=== PATIENT | male | born 1945 | race Caucasian/White ===

== ENCOUNTER 2017-04-03 18:54 | Inpatient (IN) ==
[2017-04-03] MEDS: D5% in 0.9% NACL 1,000 ML IVC SCH (22:10)
--- NOTE | 2017-04-03 22:59 | Internal Med History&Physical ---
<JoleneyulianaCale - Last Filed: 04/03/17 23:53> Date of Encounter: 04/03/17 Time of Encounter: 22:00 Assessment and Plan (1) Bradycardia Current visit: No Status: Acute Patient with Symptomatic Bradycardia. EKG shows Mobitz type II second degree heart block. possibly secondary to Coreg and digoxin, but patient has been on these medications for years and digoxin level was normal Hold Coreg and digoxin continuous certified peer specialist Start Dopamine drip Patient currently stable. Cardiology made aware of patient. Cardiology consult placed. Appreciate recommendations. (2) CAD (coronary artery disease) Current visit: Yes Status: Chronic Patient hx of CAD s/p CABG Pt on home Coreg, Digoxin Hold meds due to symptomatic bradycardia. Qualifiers: Coronary Disease-Associated Artery/Lesion type: unspecified vessel or lesion type [place] vs. transplanted heart: [place] heart Associated angina: with unspecified angina Qualified Code(s): I25.119 - Atherosclerotic heart disease of [place] coronary artery with unspecified angina pectoris (3) Anemia Current visit: Yes Status: Chronic Pt Hgb 9.2 on admission family reports hx of Anemia but no baseline in system. continue to monitor. Qualifiers: Anemia type: unspecified type Qualified Code(s): D64.9 - Anemia, unspecified (4) HTN (hypertension) Current visit: Yes Status: Acute Pt with Hx of HTN on home HCTZ, Enalapril hold home medications in light of symptomatic bradycardia until after cardiac evaluation. Qualifiers: Hypertension type: essential hypertension Qualified Code(s): I10 - Essential (primary) hypertension (5) HLD (hyperlipidemia) Current visit: Yes Status: Chronic Pt with Hx of HLD on home Zocor and fenofibrate resume home meds in the AM after cardio evaluation Qualifiers: Hyperlipidemia type: unspecified Qualified Code(s): E78.5 - Hyperlipidemia , unspecified (6) Diabetes mellitus Current visit: Yes Status: Chronic Patient with Hx of DM on home Glipizide Patient hypoglycemic upon arrival from [place]. hold home glipizide. gave juice and started on D5 NS continue to monitor with scheduled accuchecks. Will start SSI in the morning. Qualifiers: Diabetes mellitus type: type 2 Diabetes mellitus complication status: with unspecified complications Diabetes mellitus terminologist insulin use: without terminologist use Qualified Code(s): E11.8 - Type 2 diabetes mellitus with unspecified complications Internal Medicine - H&P: HPI Chief complaint: Lightheadedness Admitted From: Hospital to Hospital Transfer Plans for Post Hospital Care: Home History of present illness: Mr. Dawson is a 71 year old male c PMHx of [place], CAD s/p CABG, DM, HLD, HTN, Chronic anemia reports to [facility] as a transfer from [place] [facility] for complaints of lightheadedness x 3 days. Patient reports dizziness upon standing/exertion that he describes as lightheadedness. He also reports generalized fatigue/ weakness and [place]. Patient denies V,D, Chest pain, abd pain, SOB, urinary symptoms, numbness tingling, headache, LOC. Patient was recently treated at an outside urgent care for Rosacea. Patient is on Coreg and Digoxin since his Heart attack and CABG almost 20 years ago. He reports 6 months ago medications were slightly changed so that he took the same amount of digoxin and coreg but spread out as BID instead of once a day, but had not had problems until 3 days ago. Sharee went to [place] ED and was placed on certified peer specialist which revealed heart rate in the 30s. EKGs showed Bradycardia with Mobitz type II second degree heart block. Patient got an CXR which showed no active disease and 1 L of fluid. Labs revealed normal WBC, Hgb 9.2, Hct 27.1 Plts 223, Na 138, K 4.5 Cl 104, Bicarb 28, BUN 38, Cr. 1.81, Glucose 187, Trop negative, Digoxin level 1.6. No prior admission in [place] system. No baselines for labs. Patient was transferred to [facility] for further work up. Past Med Surg Social Fam HX - Past Medical History Medical history: arthritis, COPD, coronary artery disease, CVA, diabetes, hyperlipidemia, hypertension, myocardial infarction, renal disease Psychiatric history: anxiety, depression - Past Surgical History Surgical History: coronary bypass (CABG) - Social History Smoking Status: Former smoker Smokeless Tobacco Status: No Alcohol use: none Drug use: none Internal Medicine - H&P: Meds Aspirin [Lo-Dose Aspirin EC] 81 mg PO DAILY 04/03/17 [History] Carvedilol [Coreg] 6.25 mg PO BIDWM 04/03/17 [History] Cetirizine HCl [Zyrtec] 10 mg PO DAILY 04/03/17 [History] Digoxin [Lanoxin] 0.125 mg PO BID 04/03/17 [History] Enalapril Maleate [Vasotec] 20 mg PO DAILY 04/03/17 [History] Fenofibrate,Micronized [Fenofibrate] 160 mg PO DAILY 04/03/17 [History] GlipiZIDE [Glipizide ER] 10 mg PO DAILY 04/03/17 [History] Simvastatin [Zocor] 40 mg PO HS 04/03/17 [History] hydroCHLOROthiazide [Hydrochlorothiazide] 25 mg PO DAILY 04/03/17 [History] 3 Allergy/AdvReac Type Severity Reaction Status Date / Time codeine Allergy See Verified 04/03/17 15:19 Comments All Systems PM: A 14-system review of systems was performed and is negative for pertinent findings except as documented above in the HPI. - Head Head exam: Present: atraumatic, normocephalic - Eye Eye exam: Present: EOMI, PERRL, conjuntiva pink, sclera anicteric Pupils: Present: PERRL - Neck Neck exam general surgery: Present: supple, trachea midline - Respiratory Respiratory exam: Present: CTAB. Absent: accessory muscle use, rales, rhonchi, wheezes - Cardiovascular Cardiovascular exam: Present: bradycardia, irregular rhythm, +S1, +S2. Absent: diastolic murmur, gallop, RRR, rubs, systolic murmur - GI/Abdominal GI/Abdominal exam: Present: normal bowel sounds, soft, no peritoneal signs. Absent: distended, tenderness - Extremities Exam Extremities exam: Present: warm, radial pulses palpable and symmetrical. Absent : calf tenderness, cyanotic, pedal edema - Neurological Exam Neurological exam: Present: alert, CN II-XII intact, oriented X3, no focal deficits. Absent: facial droop, speech deficit - Skin Skin exam: Present: dry, intact <Tommie Pierre - Last Filed: 04/04/17 00:33> Date of Encounter: 04/03/17 Time of Encounter: 22:35 Past Med Surg Social Fam HX - Past Medical History Attestation: Yes The following information was validated with the patient. Source: patient Medical history: coronary artery disease, diabetes - Past Surgical History Surgical History: coronary bypass (CABG) - Social History Smoking Status: Former smoker Smokeless Tobacco Status: No Alcohol use: none Drug use: none Current living situation: Home, With Family Activity Level: Independent ambulation Recent Out of Country Travel Within the Last 8 Weeks: No - Family History Mother Living Status: Hx Family Cardiac Disorders: Yes Father Living Status: Hx Family Cardiac Disorders: No - Constitutional Constitutional: no fever(s) - EENT Eyes: no blurry vision, no change in vision Ears: no tinnitus Nose, mouth and throat: no sinus pressure, no sore throat - Cardiovascular Cardiovascular ROS IM: irregular heart rhythm, lightheadedness, no chest pain, no palpitations, no syncope - Respiratory Respiratory: no cough, no dyspnea, no hemoptysis - Gastrointestinal Gastrointestinal: no abdominal pain, no diarrhea, no vomiting - Genitourinary Genitourinary ROS male: no dysuria, no flank pain, no hematuria - Integumentary Integumentary IM: no rash - Neurological Neurological ROS: dizziness, weakness, no focal weakness, no frequent falls, no headache(s) - Psychiatric Psychiatric: no anxiety, no depression - Endocrine Endocrine IM: no polydipsia, no polyuria - Hematologic/Lymphatic Hematologic/Lymphatic: no easy bruising, no lymphadenopathy - Allergic/Immunologic Allergic/Immunologic: no wheezing, no GI upset with certain foods - Constitutional Vitals: Temp Pulse Resp BP Pulse Ox 98.2 F 45 16 160/44 99 04/03/17 23:42 04/03/17 23:46 04/03/17 23:45 04/03/17 23:46 04/03/17 23:45 General appearance: Present: cooperative, mild distress (lightheaded; dizzy), A& O X 3, pleasant - Head Head exam: Present: atraumatic, normal inspection - Eye Eye exam: Present: EOMI, PERRL. Absent: scleral icterus - ENT ENT exam: Present: mucous membranes dry, normal exam - Neck Neck exam general surgery: Present: full ROM, supple. Absent: lymphadenopathy, tenderness, nuchal rigidity - Expanded Neck Exam Neck exam: Absent: carotid bruit - Respiratory Respiratory exam: Present: CTAB. Absent: rales, rhonchi, wheezes - Cardiovascular Cardiovascular exam: Present: bradycardia, +S1, +S2. Absent: diastolic murmur, JVD, systolic murmur - GI/Abdominal GI/Abdominal exam: Present: soft. Absent: tenderness - Extremities Exam Extremities exam: Present: normal capillary refill, warm, radial pulses palpable and symmetrical. Absent: calf tenderness, cyanotic - Back Exam Back exam: Absent: CVA tenderness (L), CVA tenderness (R) - Neurological Exam Neurological exam: Present: alert, CN II-XII intact, oriented X3, no focal deficits - Psychiatric Psychiatric exam: Present: normal affect, normal mood - Skin Skin exam: Present: dry, warm. Absent: rash Internal Med - H&P Results - EKG Data -: EKG Interpreted by Myself - EKG Data EKG comments: 04/04/17 00:18 Bradycardia in a Mobitz 2 pattern -- every other QRS complex is dropped; HR 30's ; compared to other EKG's from [place] (same) - Diagnostic Studies Chest x-ray Status: image reviewed by me (negative) - Attending Attestation I discussed the patient [place], PMH, ROS, lab data, and exam findings with Dr. Wesley. I then saw and examined patient independently as well. Patient is bradycardic with HR in the 30's. BP is preserved. I reviewed his EKG's from [place] and reviewed another one we obtained upon arrival. He has a Mobitz 2 pattern AV block. I ordered Dopamine drip at 5 mcg to maintain HR ~ 45 or better. I then called Dr. Pebbles Coronado from Cardiology and discussed with her the finding of Mobitz 2. If he becomes unstable, he will need a temporary venous pacemaker. However, for now, we will try Dopamine drip and hold his BB and Digoxin. Cardiology will see in consultation in the morning. He is also hypoglycemic, and I placed him on IVF with dextrose and frequent glucose monitoring. Other than my comments above and noted exam findings, I agree with Dr. Wesley' s assessment and plan.
[2017-04-03] MEDS: Aspirin Enteric Coated 81 MG Tablet PO SCH (23:36)
[2017-04-03] MEDS ORDERED: Metoclopramide 10 MG/2 ML VIAL IVP PRN (23:38)
[2017-04-04] MEDS ORDERED: Naloxone 0.4 MG/ML INJ IVP PRN (00:29)
[2017-04-04 01:18] LABS: Basophils # 0.1 K/mcL (0.0-0.2); Basophils % 0.7 %; Eosinophils # 0.4 K/mcL (0.0-0.6); Eosinophils % 6.5 %; Hematocrit 25.7 % (37.5-50.1); Hemoglobin 8.6 g/dL (12.9-16.9); Immature Granulocytes % 3.4 % (0-4); Lymphocytes % 14.9 %; Mean Corpuscular HGB Conc 33.5 g/dL (31.6-35.5); Mean Corpuscular Hemoglobin 29.9 pg (28.0-33.3); Mean Corpuscular Volume 89.2 fL (83.0-100.0); Mean Platelet Volume 10.2 fL (9.4-12.4); Monocytes # 0.5 K/mcL (0.0-1.3); Monocytes % 6.6 %; Neutrophils # 4.6 K/mcL (1.6-8.9); Platelet Count 208 K/mcL (140-400); Red Blood Count 2.88 M/mcL (4.19-5.50); Red Cell Distribution Width 13.4 % (11.5-14.5); Segmented Neutrophils % 67.9 %
[2017-04-04 01:23] LABS: INR 1.1; Prothrombin Time 11.5 Seconds (9.4-12.1)
[2017-04-04 01:25] LABS: Activated Partial Thrombo Time 38.7 Seconds (26.0-36.0)
[2017-04-04 01:34] LABS: Albumin 3.5 g/dL (3.5-5.7); Albumin/Globulin Ratio 1.3 (1.1-2.2); Bilirubin,Total 0.4 mg/dL (0.3-1.0); Chol/HDL Ratio 6.5 (0-4.9); Globulin 2.8 g/dL (2.4-3.5); Magnesium 2.3 mg/dL (1.6-2.6); Total Protein 6.3 g/dL (6.4-8.9)
[2017-04-04] MEDS: *HR* Heparin 5,000 UNIT/ML VIAL SQ SCH ×2 (05:02→17:30)
[2017-04-04] MEDS: D5% in 0.9% NACL 1,000 ML IVC SCH (07:59)
[2017-04-04] MEDS: Aspirin Enteric Coated 81 MG Tablet PO SCH (08:00)
--- NOTE | 2017-04-04 08:22 | Internal Med Progress Note ---
Date of Encounter: 04/04/17 Time of Encounter: 09:35 - Assessment and plan (1) Bradycardia Current Visit: Yes Status: Acute Assessment and plan: Symptomatic bradycardia with Mobitz type II second-degree heart block. Carvedilol and digoxin have been held. Continue dopamine drip. Cardiology consulted. We will await recommendations. Most likely patient will need pacemaker. Continue to monitor heart rate. High risk for complications. (2) Anemia Current Visit: Yes Status: Chronic Assessment and plan: Chronic anemia. Hemoglobin 8.6. Likely from chronic kidney disease. Will check iron, folic acid and B12 levels. Qualifiers: Anemia type: due to chronic kidney disease Chronic kidney disease stage: stage 3 (moderate) Qualified Code(s): N18.3 - Chronic kidney disease, stage 3 (moderate); D63.1 - Anemia in chronic kidney disease; D63.1 - Anemia in chronic kidney disease (3) CAD (coronary artery disease) Current Visit: Yes Status: Chronic Assessment and plan: Continue aspirin, lisinopril and statin. Qualifiers: Coronary Disease-Associated Artery/Lesion type: unspecified vessel or lesion type [place] vs. transplanted heart: [place] heart Associated angina: with unspecified angina Qualified Code(s): I25.119 - Atherosclerotic heart disease of [place] coronary artery with unspecified angina pectoris (4) Diabetes mellitus Current Visit: Yes Status: Chronic Assessment and plan: Hypoglycemia has now resolved. We will transition off D5 infusion. Continue to monitor blood sugars closely. Qualifiers: Diabetes mellitus type: type 2 Diabetes mellitus complication status: with unspecified complications Diabetes mellitus senior living insulin use: without senior living use Qualified Code(s): E11.8 - Type 2 diabetes mellitus with unspecified complications (5) HLD (hyperlipidemia) Current Visit: Yes Status: Chronic Assessment and plan: Continue simvastatin Qualifiers: Hyperlipidemia type: mixed hyperlipidemia Qualified Code(s): E78.2 - Mixed hyperlipidemia (6) HTN (hypertension) Current Visit: Yes Status: Chronic Assessment and plan: Uncontrolled. Resume antihypertensive agents. Continue to hold beta jackie. Qualifiers: Hypertension type: essential hypertension Qualified Code(s): I10 - Essential (primary) hypertension (7) DVT prophylaxis Current Visit: Yes Status: Acute Assessment and plan: With subcutaneous heparin - Subjective Interval history: Patient is awake and alert. Denies any chest pain. No shortness of breath. No dizziness or lightheadedness. Does feel fatigued and weak overall. Heart rate in the 40s despite 5 g of dopamine. Just now increased to 7.5 g. - Constitutional Vitals: Temp Pulse Resp BP Pulse Ox 98.6 F 40 16 157/76 97 04/04/17 07:07 04/04/17 08:10 04/04/17 07:07 04/04/17 08:10 04/04/17 08:10 General appearance: Present: cooperative, mild distress (lightheaded; dizzy), A& O X 3, pleasant, answers questions appropriately - Neck Neck exam general surgery: Present: supple, trachea midline. Absent: lymphadenopathy - Cardiovascular Cardiovascular exam: Present: bradycardia, irregular rhythm, +S1, +S2. Absent: diastolic murmur, gallop, rubs, systolic murmur - GI/Abdominal GI/Abdominal exam: Present: normal bowel sounds, soft, no peritoneal signs. Absent: distended, tenderness - Extremities Exam Extremities exam: Present: warm, radial pulses palpable and symmetrical. Absent : calf tenderness, cyanotic, pedal edema - Neurological Exam Neurological exam: Present: CN II-XII intact, oriented X3, no focal deficits. Absent: facial droop, speech deficit - Skin Skin exam: Present: dry, intact Internal Medicine: Result - Labs CBC & Chem 7: 04/04/17 01:10 04/04/17 01:10 Labs: Short CBC 04/04/17 Range/Units 01:10 WBC 6.8 (4.3-11.1) K/mcL Hgb 8.6 L (12.9-16.9) g/dL Hct 25.7 L (37.5-50.1) % Plt Count 208 (140-400) K/mcL Neutrophils # 4.6 (1.6-8.9) K/mcL BMP 04/04/17 01:10 Sodium 138 Potassium 4.0 Chloride 109 H Carbon Dioxide 25 BUN 36 H Creatinine 1.46 H Glucose 104 Calcium 9.0 Cardiac Enzymes 04/04/17 04/04/17 Range/Units 01:10 07:29 Troponin I 0.03 0.03 (< 0.04) ng/mL Liver Function 04/04/17 Range/Units 01:10 Total Bilirubin 0.4 (0.3-1.0) mg/dL AST 18 (13-39) Units/L ALT 10 (7-52) Units/L Alkaline Phosphatase 32 L (34-104) Units/L Albumin 3.5 (3.5-5.7) g/dL - ABG Interpretation ABG results: PT/INR, D-dimer PT 11.5 Seconds (9.4-12.1) 04/04/17 01:10 Consult Discharge Plan - Plan Referrals: Kade Moya MD [Primary Care Provider] -
[2017-04-04] MEDS: hydroCHLOROthiazide 25 MG TABLET PO SCH (09:30)
[2017-04-04] MEDS: Lisinopril 20 MG TABLET PO SCH (09:30)
--- NOTE | 2017-04-04 14:03 | Cardiology Consult Note ---
Date of Encounter: 04/04/17 Time of Encounter: 09:45 Assessment and Plan (1) Symptomatic bradycardia Current Visit: Yes Status: Acute Pt has symptomatic bradycardia with evidence of 2:1 AV block on EKG. Will most likely need permanent pacemaker on Thursday. Will schedule for echocardiogram to assess LV function. D/C AV aleksandr blocking agents- digoxin, carvedilol. (2) AV block, 2nd degree Current Visit: Yes Status: Acute 2:1 AV block on EKG. (3) CAD (coronary artery disease) Current Visit: No Status: Chronic Pt denies angina. Continue current meds. Risk factor modification. Qualifiers: Coronary Disease-Associated Artery/Lesion type: [place] artery [place] vs. transplanted heart: [place] heart Associated angina: without angina Qualified Code(s): I25.10 - Atherosclerotic heart disease of [place] coronary artery without angina pectoris (4) S/P CABG (coronary artery bypass graft) Current Visit: No Status: Chronic (5) Vision changes Current Visit: Yes Status: Acute Will schedule for carotid duplex to evaluate recent vision changes. None currently. Discussion w patient/family: The assessment and plan as outlined above was discussed with the patient and/or family members who expressed understanding and agreement. All questions were answered. Thank you for involving us in the care of your patient. Please call with any questions. History of Present Illness Consult date: 04/04/17 Consult reason: bradycardia Chief complaint: bradycardia, lightheadedness History of present illness: Mr. Dawson is a 71 year old male with hx of CAD s/p CABG 1998, HTN, hyperlipidemia presents as transfer from [place] ED for evaluation of bradycardia. Pt was in baseline state of health until a few days ago, when started noticing lightheadedness. Powell lightheaded all of time when in upright position both at rest as well as when exerting self. Denies palpitations, syncope. Denies CP, SOB, nausea, vomiting, diaphoresis. Notes fatigue. No recent med changes. Presented to [place] ED for further evaluation. HR noted to be in 30s. EKG demonstrates 2:1 AV block. Digoxin level 1.6, K 4.5. Transferred to [facility] for further evaluation/tx. Currently denies lightheadedness while lying supine in bed. Denies CP, SOB, nausea, diaphoresis. notes pt had vision changes last week- vision went "black" for a few minutes and then resolved. No other associated symptoms. Pt has known history of CAD, PCI, CABG. Has had multiple MIs and PCIs per pt. Had CABG in 1998 at [facility] by Dr. Eisenberg. No cardiac testing since that time. No records available for my review. Pt unaware of EF. Past Med Surg Social Fam HX - Past Medical History Medical history: coronary artery disease, diabetes, hyperlipidemia, hypertension , other (chronic anemia, renal insufficiency) Psychiatric history: anxiety, depression - Past Surgical History Surgical History: angioplasty/stent, coronary bypass (CABG) (1998) - Social History Smoking Status: Former smoker Smokeless Tobacco Status: No Alcohol use: none Drug use: none - Family History Mother Living Status: Hx Family Cardiac Disorders: Yes Father Living Status: Hx Family Cardiac Disorders: No Medications and Allergies Aspirin [Lo-Dose Aspirin EC] 81 mg PO DAILY 04/03/17 [History] Carvedilol [Coreg] 6.25 mg PO BIDWM 04/03/17 [History] Cetirizine HCl [Zyrtec] 10 mg PO DAILY 04/03/17 [History] Digoxin [Lanoxin] 0.125 mg PO BID 04/03/17 [History] Enalapril Maleate [Vasotec] 20 mg PO DAILY 04/03/17 [History] Fenofibrate,Micronized [Fenofibrate] 160 mg PO DAILY 04/03/17 [History] GlipiZIDE [Glipizide ER] 10 mg PO DAILY 04/03/17 [History] Simvastatin [Zocor] 40 mg PO HS 04/03/17 [History] hydroCHLOROthiazide [Hydrochlorothiazide] 25 mg PO DAILY 04/03/17 [History] 3 Allergy/AdvReac Type Severity Reaction Status Date / Time codeine Allergy See Verified 04/03/17 15:19 Comments All Systems Review: The remainder of the systems were reviewed and are negative - Cardiovascular Cardiovascular: as per HPI Physical Examination Vital Signs, Last 4 Hours Temp Pulse Resp BP Pulse Ox 04/04/17 13:46 55 127/45 04/04/17 13:26 60 04/04/17 13:05 49 145/107 97 04/04/17 12:10 60 04/04/17 12:05 60 162/63 04/04/17 12:04 98.5 F 55 17 162/63 98 02/24/18 11:45 88 135/66 04/04/17 11:15 54 160/59 04/04/17 10:45 50 162/52 04/04/17 10:30 47 164/53 04/04/17 10:21 52 174/67 04/04/17 10:00 52 170/76 General: Conversant, No Apparent Distress HEENT: Atraumatic, Normocephaly, Mucus Membranes Moist Neck: No JVD, Normal carotid pulses Cardiac: Normal S1 and S2, No Murmur (bradycardic, irregular rhythm) Lungs: Normal Breath Sounds, No Wheeze, Rales, Rhonchi Neuro: Alert and responsive, No focal deficits noted Abdomen: Soft, Non-Tender Skin: No rashes noted on visualized skin Musculoskeletal: No Chest Wall Tenderness Extremities: No Clubbing, No Cyanosis, No Edema, Normal Pulses Results 04/04/17 01:10 04/04/17 01:10 Lab Results 04/04/17 04/04/17 04/04/17 01:10 01:10 01:10 WBC 6.8 Hgb 8.6 L Hct 25.7 L Plt Count 208 INR 1.1 APTT 38.7 H Sodium Potassium Chloride Carbon Dioxide BUN Creatinine Glucose Calcium Magnesium Total Bilirubin AST ALT Alkaline Phosphatase Troponin I 0.03 04/04/17 04/04/17 01:10 07:29 WBC Hgb Hct Plt Count INR APTT Sodium 138 Potassium 4.0 Chloride 109 H Carbon Dioxide 25 BUN 36 H Creatinine 1.46 H Glucose 104 Calcium 9.0 Magnesium 2.3 Total Bilirubin 0.4 AST 18 ALT 10 Alkaline Phosphatase 32 L Troponin I 0.03 - EKG Interpretation EKG results cardiology: personally reviewed (2:1 AV block) Consult Discharge Plan - Plan Referrals: Kade Moya MD [Primary Care Provider] -
[2017-04-05] MEDS ORDERED: Ipratropium/Albuterol Neb 3 ML IH PRN (03:12)
[2017-04-05] MEDS: Ipratropium/Albuterol Neb 3 ML IH SCH ×4 (04:32→21:43)
[2017-04-05] MEDS: *HR* Heparin 5,000 UNIT/ML VIAL SQ SCH ×2 (06:34→16:56)
[2017-04-05] MEDS: hydroCHLOROthiazide 25 MG TABLET PO SCH (07:15)
[2017-04-05] MEDS: Aspirin Enteric Coated 81 MG Tablet PO SCH (07:16)
[2017-04-05] MEDS: Lisinopril 20 MG TABLET PO SCH (07:16)
[2017-04-05] MEDS ORDERED: CeFAZolin Syr 2,000MG/20 ML 2,000 MG/20 ML SYRINGE IVPB ONE (08:38)
--- NOTE | 2017-04-05 09:10 | Cardiology Progress Note ---
Date of Encounter: 04/05/17 Time of Encounter: 08:30 Assessment and Plan (1) Symptomatic bradycardia Current Visit: Yes Status: Acute Pt has symptomatic bradycardia with evidence of 2:1 AV block on EKG. Permanent pacemaker on Thursday. EF 55% on echocardiogram. (2) AV block, 2nd degree Current Visit: Yes Status: Acute 2:1 AV block on EKG. (3) CAD (coronary artery disease) Current Visit: No Status: Chronic Pt denies angina. Continue current meds. Risk factor modification. Qualifiers: Coronary Disease-Associated Artery/Lesion type: [place] artery [place] vs. transplanted heart: [place] heart Associated angina: without angina Qualified Code(s): I25.10 - Atherosclerotic heart disease of [place] coronary artery without angina pectoris (4) S/P CABG (coronary artery bypass graft) Current Visit: No Status: Chronic (5) Vision changes Current Visit: Yes Status: Acute Will schedule for carotid duplex to evaluate recent vision changes. May all be due to bradycardia. None currently. Discussion w patient/family: The assessment and plan as outlined above was discussed with the patient and/or family members who expressed understanding and agreement. All questions were answered. Thank you for involving us in the care of your patient. Please call with any questions. Subjective Interval history: Pt without complaints this AM. Sitting upright in bed- no lightheadedness. Has been out of bed to use bedside commode with nursing assistance. Still having periods of bradycardia with HR in 20s off all AV aleksandr blocking drugs. Objective Vital Signs, Last 4 Hours Temp Pulse Resp BP Pulse Ox 04/05/17 07:20 66 04/05/17 07:08 98.3 F 38 18 152/53 100 General: Conversant, No Apparent Distress HEENT: Atraumatic, Normocephaly, Mucus Membranes Moist Neck: No JVD, Normal carotid pulses Cardiac: Normal S1 and S2, No Murmur, Other (bradycardic) Lungs: Normal Breath Sounds, No Wheeze, Rales, Rhonchi Neuro: Alert and responsive, No focal deficits noted Abdomen: Soft, Non-Tender Skin: No rashes noted on visualized skin Musculoskeletal: No Chest Wall Tenderness Extremities: No Clubbing, No Cyanosis, No Edema, Normal Pulses Results 04/04/17 01:10 04/04/17 01:10 Lab Results 04/04/17 13:39 Troponin I 0.03 - Imaging and Cardiology Echo: other (Periods of AV block observed during the study, sinus rhythm also observed. LVEF 50-55%. Atypical septal motion consistent with post-operative status. Normal right ventricular structure and function. Mild mitral regurgitation. Lack of significant TR gradient to estimate RVSP.) Consult Discharge Plan - Plan Referrals: Kade Moya MD [Primary Care Provider] -
--- NOTE | 2017-04-05 09:33 | Internal Med Progress Note ---
Date of Encounter: 04/05/17 Time of Encounter: 09:29 - Assessment and plan (1) AV block, 2nd degree Current Visit: Yes Status: Acute Assessment and plan: Heart rate has improved. Cardiology following. Recommends permanent pacemaker. Plan for tomorrow. Keep nothing by mouth after midnight. Continue monitoring with telemetry. Dopamine drip stopped yesterday by cardiology. moderate risk for complications. (2) Anemia Current Visit: Yes Status: Chronic Assessment and plan: Monitor blood counts. Chronic anemia. Checking iron profile, vitamin B12 and folic acid levels. Qualifiers: Anemia type: due to chronic kidney disease Chronic kidney disease stage: stage 3 (moderate) Qualified Code(s): N18.3 - Chronic kidney disease, stage 3 (moderate); D63.1 - Anemia in chronic kidney disease; D63.1 - Anemia in chronic kidney disease (3) CAD (coronary artery disease) Current Visit: Yes Status: Chronic Assessment and plan: Continue aspirin, statin and lisinopril. Beta jackie on hold due to bradycardia and AV block Qualifiers: Coronary Disease-Associated Artery/Lesion type: [place] artery [place] vs. transplanted heart: [place] heart Associated angina: without angina Qualified Code(s): I25.10 - Atherosclerotic heart disease of [place] coronary artery without angina pectoris (4) Diabetes mellitus Current Visit: Yes Status: Chronic Assessment and plan: Blood sugars are now improved. Continue to monitor blood sugars. We will start low dose insulin sliding scale if is persistently elevated. Qualifiers: Diabetes mellitus type: type 2 Diabetes mellitus complication status: with unspecified complications Diabetes mellitus custodial insulin use: without custodial use Qualified Code(s): E11.8 - Type 2 diabetes mellitus with unspecified complications (5) HLD (hyperlipidemia) Current Visit: Yes Status: Chronic Assessment and plan: Continue simvastatin Qualifiers: Hyperlipidemia type: mixed hyperlipidemia Qualified Code(s): E78.2 - Mixed hyperlipidemia (6) HTN (hypertension) Current Visit: Yes Status: Chronic Assessment and plan: Elevated this morning. We will monitor for now. Adjust antihypertensive regimen tomorrow after pacemaker placement. Qualifiers: Hypertension type: essential hypertension Qualified Code(s): I10 - Essential (primary) hypertension (7) DVT prophylaxis Current Visit: Yes Status: Acute Assessment and plan: With subcutaneous heparin (8) Mobitz (type) II atrioventricular block Current Visit: Yes Status: Acute Assessment and plan: Management as above - Subjective Interval history: Patient is doing better today. Denies any dizziness or lightheadedness. No nausea or vomiting. No chest pain or palpitations. - Constitutional Vitals: Temp Pulse Resp BP Pulse Ox 98.3 F 66 18 152/53 100 04/05/17 07:08 04/05/17 07:20 04/05/17 07:08 04/05/17 07:08 04/05/17 07:08 General appearance: Present: cooperative, A&O X 3, pleasant, no acute distress, answers questions appropriately - Neck Neck exam general surgery: Present: supple, trachea midline. Absent: lymphadenopathy - Respiratory Respiratory exam: Present: CTAB. Absent: accessory muscle use, rales, rhonchi, wheezes - Cardiovascular Cardiovascular exam: Present: RRR, +S1, +S2. Absent: diastolic murmur, gallop, rubs, systolic murmur - GI/Abdominal GI/Abdominal exam: Present: normal bowel sounds, soft, no peritoneal signs. Absent: distended, tenderness - Extremities Exam Extremities exam: Present: warm, radial pulses palpable and symmetrical. Absent : calf tenderness, cyanotic, pedal edema Internal Medicine: Result - Labs CBC & Chem 7: 04/04/17 01:10 04/04/17 01:10 Labs: Cardiac Enzymes 04/04/17 Range/Units 13:39 Troponin I 0.03 (< 0.04) ng/mL - ABG Interpretation ABG results: PT/INR, D-dimer PT 11.5 Seconds (9.4-12.1) 04/04/17 01:10 - Impressions Impressions Echocardiogram 04/04/17 00:28 Impressions: Periods of AV block observed during the study, sinus rhythm also observed. LVEF 50-55%. Atypical septal motion consistent with post-operative status. Normal right ventricular structure and function. Mild mitral regurgitation. Lack of significant TR gradient to estimate RVSP. Left Ventricular Wall Motion: Rest Echo Findings The apical inferior, mid inferior and basal inferior miranda were not visualized. All other wall segments showed normal motion. Findings: Study Quality * Technically adequate exam. ECG Findings * Periods of AVB observed during the study, sinus rhythm also observed. Left Ventricle * LVEF 50-55%. * Atypical septal motion consistent with post-operative status. * Normal LV chamber size and wall thickness. Right Ventricle * Normal right ventricular structure and function. Left Atrium * Moderately dilated left atrium. Right Atrium * Normal right atrial size. Aortic Valve * No aortic regurgitation. * Trileaflet aortic valve. * Mildly thickened aortic valve leaflets. * No aortic stenosis. Mitral Valve * Normal mitral valve structure. * No mitral stenosis. * Mild mitral regurgitation. Tricuspid Valve * Tricuspid valve not well visualized. * Trace tricuspid regurgitation. * Estimated RA pressure is 3 mmHg. Pulmonic Valve * Pulmonic valve is not well visualized. * No pulmonic stenosis. * No pulmonic regurgitation. Pulmonary Artery * Pulmonary artery not well visualized. Aorta * Normally sized aortic root. Pericardium * There is no pericardial effusion present. Interatrial Septum * No evidence of PFO by color Doppler. IVC * Normal IVC dimensions and inspiratory collapse. Consult Discharge Plan - Plan Referrals: Kade Moya MD [Primary Care Provider] -
[2017-04-05 10:01] LABS: Basophils # 0.1 K/mcL (0.0-0.2); Basophils % 0.8 %; Eosinophils # 0.3 K/mcL (0.0-0.6); Eosinophils % 5.2 %; Hemoglobin 9.2 g/dL (12.9-16.9); Immature Granulocytes % 2.7 % (0-4); Lymphocytes # 0.9 K/mcL (0.6-4.6); Lymphocytes % 13.9 %; Mean Corpuscular HGB Conc 34.1 g/dL (31.6-35.5); Mean Corpuscular Hemoglobin 30.3 pg (28.0-33.3); Mean Corpuscular Volume 88.8 fL (83.0-100.0); Mean Platelet Volume 10.3 fL (9.4-12.4); Monocytes # 0.4 K/mcL (0.0-1.3); Monocytes % 6.5 %; Neutrophils # 4.4 K/mcL (1.6-8.9); Platelet Count 193 K/mcL (140-400); Red Blood Count 3.04 M/mcL (4.19-5.50); Red Cell Distribution Width 13.8 % (11.5-14.5); Segmented Neutrophils % 70.9 %
[2017-04-05 10:18] LABS: % Iron Saturation 20 % (20-55); Ferritin 323 ng/ml (20-250); Iron 66 mcg/dL (65-175); Transferrin 241 mg/dL (203-362)
[2017-04-05 10:44] LABS: Vitamin B12 199 pg/mL (250-1100)
[2017-04-05 10:52] LABS: Folate > 22.3 ng/mL (3.0-16.0)
[2017-04-05] MEDS: Acetaminophen 325 MG TABLET PO PRN (14:05)
[2017-04-05] MEDS: Cyanocobalamin (B-12) 1,000 MCG/ML VIAL SQ SCH (16:56)
[2017-04-06] MEDS: Ipratropium/Albuterol Neb 3 ML IH SCH ×4 (04:10→21:02)
[2017-04-06] MEDS: *HR* Heparin 5,000 UNIT/ML VIAL SQ SCH ×2 (06:06→17:04)
[2017-04-06 07:54] LABS: Basophils % 0.6 %; Eosinophils # 0.3 K/mcL (0.0-0.6); Hematocrit 25.5 % (37.5-50.1); Hemoglobin 8.6 g/dL (12.9-16.9); Lymphocytes # 0.8 K/mcL (0.6-4.6); Lymphocytes % 12.3 %; Mean Corpuscular HGB Conc 33.7 g/dL (31.6-35.5); Mean Corpuscular Volume 88.9 fL (83.0-100.0); Mean Platelet Volume 10.4 fL (9.4-12.4); Monocytes # 0.4 K/mcL (0.0-1.3); Monocytes % 6.5 %; Neutrophils # 4.9 K/mcL (1.6-8.9); Platelet Count 191 K/mcL (140-400); Red Blood Count 2.87 M/mcL (4.19-5.50); Red Cell Distribution Width 13.9 % (11.5-14.5); Segmented Neutrophils % 73.6 %
[2017-04-06 08:33] LABS: Calcium 9.6 mg/dL (8.6-10.3); Potassium 3.6 mEq/L (3.5-5.1)
[2017-04-06] MEDS: Aspirin Enteric Coated 81 MG Tablet PO SCH (08:47)
[2017-04-06] MEDS: hydroCHLOROthiazide 25 MG TABLET PO SCH (08:47)
[2017-04-06] MEDS: Cyanocobalamin (B-12) 1,000 MCG/ML VIAL SQ SCH (08:47)
[2017-04-06] MEDS: Lisinopril 20 MG TABLET PO SCH (08:47)
--- NOTE | 2017-04-06 11:32 | Event Note ---
Date of Encounter: 04/06/17 Time of Encounter: 11:30 - Cardiology Event Note ECGs and telemetry strips reviewed with Dr.JOhn Coronado, plan for permanent pacemaker today for symptomatic bradycardia with 2:1 AV block. Risks versus benefits of pacemaker explained to patient and family, states understanding and agreeable to proceed. Further recommendations pending pacemaker.
--- NOTE | 2017-04-06 12:23 | Internal Med Progress Note ---
Date of Encounter: 04/06/17 Time of Encounter: 09:00 - Assessment and plan (1) AV block, 2nd degree Current Visit: Yes Status: Acute Assessment and plan: Plan for Permanent pacemaker today. Cardiology following. (2) Anemia Current Visit: Yes Status: Chronic Assessment and plan: With vitamin B12 deficiency. Replacing. Qualifiers: Anemia type: due to chronic kidney disease Chronic kidney disease stage: stage 3 (moderate) Qualified Code(s): N18.3 - Chronic kidney disease, stage 3 (moderate); D63.1 - Anemia in chronic kidney disease; D63.1 - Anemia in chronic kidney disease (3) CAD (coronary artery disease) Current Visit: Yes Status: Chronic Assessment and plan: No chest pain. Continue current medications Qualifiers: Coronary Disease-Associated Artery/Lesion type: [place] artery [place] vs. transplanted heart: [place] heart Associated angina: without angina Qualified Code(s): I25.10 - Atherosclerotic heart disease of [place] coronary artery without angina pectoris (4) Diabetes mellitus Current Visit: Yes Status: Chronic Assessment and plan: Hypoglycemia resolved. Blood sugars are well controlled Qualifiers: Diabetes mellitus type: type 2 Diabetes mellitus complication status: with unspecified complications Diabetes mellitus ferry terminal agent insulin use: without ferry terminal agent use Qualified Code(s): E11.8 - Type 2 diabetes mellitus with unspecified complications (5) HLD (hyperlipidemia) Current Visit: Yes Status: Chronic Assessment and plan: On simvastatin Qualifiers: Hyperlipidemia type: mixed hyperlipidemia Qualified Code(s): E78.2 - Mixed hyperlipidemia (6) HTN (hypertension) Current Visit: Yes Status: Chronic Assessment and plan: Continue lisinopril and hydrochlorothiazide. Holding beta jackie due to bradycardia. Qualifiers: Hypertension type: essential hypertension Qualified Code(s): I10 - Essential (primary) hypertension (7) Mobitz (type) II atrioventricular block Current Visit: Yes Status: Acute (8) DVT prophylaxis Current Visit: Yes Status: Acute Assessment and plan: Subcutaneous heparin - Subjective Interval history: Patient is comfortable. Awake and alert. No palpitations. No dizziness or lightheadedness. - Constitutional Vitals: Temp Pulse Resp BP Pulse Ox 98.6 F 72 16 144/82 100 04/06/17 11:36 04/06/17 11:36 04/06/17 11:36 04/06/17 11:36 04/06/17 11:36 General appearance: Present: cooperative, A&O X 3, pleasant, no acute distress, answers questions appropriately - Respiratory Respiratory exam: Present: CTAB. Absent: accessory muscle use, rales, rhonchi, wheezes - Cardiovascular Cardiovascular exam: Present: bradycardia, RRR, +S1, +S2. Absent: diastolic murmur, gallop, rubs, systolic murmur - GI/Abdominal GI/Abdominal exam: Present: normal bowel sounds, soft, no peritoneal signs. Absent: distended, tenderness - Extremities Exam Extremities exam: Present: warm, radial pulses palpable and symmetrical. Absent : calf tenderness, cyanotic, pedal edema - Neurological Exam Neurological exam: Present: CN II-XII intact, oriented X3, no focal deficits. Absent: facial droop, speech deficit - Skin Skin exam: Present: dry, intact Internal Medicine: Result - Labs CBC & Chem 7: 04/06/17 07:21 04/06/17 07:21 Labs: Short CBC 04/06/17 Range/Units 07:21 WBC 6.6 (4.3-11.1) K/mcL Hgb 8.6 L (12.9-16.9) g/dL Hct 25.5 L (37.5-50.1) % Plt Count 191 (140-400) K/mcL Neutrophils # 4.9 (1.6-8.9) K/mcL BMP 04/06/17 07:21 Sodium 139 Potassium 3.6 Chloride 108 H Carbon Dioxide 25 BUN 30 H Creatinine 1.44 H Glucose 109 H Calcium 9.6 - ABG Interpretation ABG results: PT/INR, D-dimer PT 11.5 Seconds (9.4-12.1) 04/04/17 01:10 Consult Discharge Plan - Plan Referrals: Kade Moya MD [Primary Care Provider] -
--- NOTE | 2017-04-06 12:23 | Pre-Sedation Evaluation ---
Pre-sedation evaluation - Pre-sedation checklist Date of procedure: 04/06/17 Procedure: Pacemaker Recent Vitals: Last Vital Signs Temp 98.6 F 04/06/17 11:36 Pulse 72 04/06/17 11:36 Resp 16 04/06/17 11:36 BP 144/82 04/06/17 11:36 Pulse Ox 100 04/06/17 11:36 H&P (including ROS) documented in medical record: No Previous reaction to sedatives/anesthetics: No Dietary Status: NPO after Midnight Airway Assessment: Patient can open mouth completely, TMJ function normal, Micrognathia (under-bite, receding chin) absent Possible difficult airway: No ASA Classification *see protocol: CLASS II-Mild systemic disease Plan of Care: Pt appropriate candidate for procedure/moderate/conscious sedation , Risks/benefits of procedure/sedation discussed w/ patient/family
[2017-04-06] MEDS ORDERED: Water for inj. (sterile) 10 ML IV ONE (12:53)
[2017-04-06] MEDS ORDERED: 0.9 % Sodium Chloride 500 ML ONE (12:53)
[2017-04-06] MEDS ORDERED: *HR* FentaNYL (PF) 100 MCG/2 ML VIAL ONE (12:55)
[2017-04-06] MEDS ORDERED: *HR* Midazolam HCl 2 MG/2 ML VIAL ONE (12:55)
[2017-04-06] MEDS ORDERED: 0.9 % Sodium Chloride 1,000 ML ONE (12:56)
[2017-04-06] MEDS: Acetaminophen 325 MG TABLET PO PRN (17:05)
[2017-04-07] MEDS: Acetaminophen 325 MG TABLET PO PRN ×2 (03:21→09:17)
[2017-04-07] MEDS: Ipratropium/Albuterol Neb 3 ML IH SCH ×2 (04:13→09:35)
[2017-04-07 04:37] LABS: BUN/Creatinine Ratio 18 (6-26); Blood Urea Nitrogen 23 mg/dL (8-23); Carbon Dioxide 24 mEq/L (23-29); Chloride 110 mEq/L (98-107); Potassium 3.9 mEq/L (3.5-5.1); Sodium 140 mEq/L (136-145); eGFR For African Americans > 60 (> 60); eGFR For Non-African Americans 56 (> 60)
[2017-04-07] MEDS: *HR* Heparin 5,000 UNIT/ML VIAL SQ SCH (06:18)
[2017-04-07] MEDS: hydroCHLOROthiazide 25 MG TABLET PO SCH (09:10)
[2017-04-07] MEDS: Cyanocobalamin (B-12) 1,000 MCG/ML VIAL SQ SCH (09:10)
[2017-04-07] MEDS: Aspirin Enteric Coated 81 MG Tablet PO SCH (09:10)
[2017-04-07] MEDS: Lisinopril 20 MG TABLET PO SCH (09:10)
--- NOTE | 2017-04-07 11:10 | Cardiology Progress Note ---
Date of Encounter: 04/07/17 Time of Encounter: 09:30 Assessment and Plan (1) Symptomatic bradycardia Current Visit: Yes Status: Acute Per cardiology: -Symptomatic bradycardia noted on admission. -S/p permanent pacemaker yesterday. -Chest x-ray with no evidence of pneumothorax. -Device check today with normal functioning device. -Post device implantation education reviewed with patient and , state understanding. -Denies symptoms since device placement. -Cardiology will sign off and will follow in outpateitn setting. Follow up set. (2) Vision changes Current Visit: Yes Status: Acute Per cardiology: -Denies visio changes since device placement. -Carotid duplex with bilateral carotid arteries with 40-59% stenosis. -Will continue to monitor in outpatient setting. (3) CAD (coronary artery disease) Current Visit: Yes Status: Chronic Per cardiology: -Known history of CAD s/p CABG. -Denies chest pain. -On asa, statin, -TTE with LVEF preserved. -Will resume low dose beta jackie. -Will continue to monitor in outpatient setting. Qualifiers: Coronary Disease-Associated Artery/Lesion type: [place] artery [place] vs. transplanted heart: [place] heart Associated angina: without angina Qualified Code(s): I25.10 - Atherosclerotic heart disease of [place] coronary artery without angina pectoris Discussion w patient/family: The assessment and plan as outlined above was discussed with the patient and/or family members who expressed understanding and agreement. All questions were answered. Thank you for involving us in the care of your patient. Please call with any questions. Discussed and reviewed with Dr.John Coronado. Subjective Principal diagnosis: bradycardia Interval history: Patient is s/p permanent pacemaker yesterday. Denies complaints. Objective Vital Signs, Last 4 Hours Temp Pulse Resp BP Pulse Ox 04/07/17 09:23 66 04/07/17 07:47 98.7 F 64 16 135/55 97 General: Conversant, No Apparent Distress HEENT: Atraumatic, Normocephaly, Mucus Membranes Moist Neck: No JVD, Normal carotid pulses Cardiac: Reg Rate and Rhythm, Normal S1 and S2, No Murmur Lungs: Normal Breath Sounds, No Wheeze, Rales, Rhonchi Neuro: Alert and responsive, No focal deficits noted Abdomen: Soft, Non-Tender Skin: No rashes noted on visualized skin Musculoskeletal: No Chest Wall Tenderness Extremities: No Clubbing, No Cyanosis, No Edema, Normal Pulses Results 04/06/17 07:21 04/07/17 03:45 Lab Results Impressions Chest X-Ray 04/06/17 13:49 IMPRESSION: No acute process. Transvenous pacer in place. No pneumothorax. D/ / Bethel Bingham MD / Bethel Bingham MD Interpreting Provider: Bethel Bingham MD Chest X-Ray 04/07/17 06:00 IMPRESSION: No acute abnormality. D/ / Deon Dougherty MD / Deon Dougherty MD Interpreting Provider: Deon Dougherty MD Active Medications Acetaminophen (Tylenol) 650 mg PO Q6HR PRN PRN Reason: Pain Stop: 10/05/17 14:02 Last Admin: 04/07/17 09:17 Dose: 650 mg Albuterol/Ipratropium (Duoneb) 3 ml IH [id number] [facility] Stop: 10/05/17 04:01 Last Admin: 04/07/17 09:35 Dose: 3 ml Albuterol/Ipratropium (Duoneb) 3 ml IH [id number] PRN PRN Reason: Shortness Of Breath/Wheezing Stop: 10/05/17 03:13 Last Admin: 04/05/17 13:26 Dose: 3 ml Aspirin (Aspirin Ec) 81 mg PO DAILY [facility] Stop: 10/03/17 23:16 Last Admin: 04/07/17 09:10 Dose: 81 mg Cyanocobalamin (Vitamin B12) 1,000 mcg SQ DAILY [facility] Stop: 10/05/17 16:01 Last Admin: 04/07/17 09:10 Dose: 1,000 mcg Heparin Sodium (Porcine) (Heparin) 5,000 unit SQ Q12HCO [facility] Stop: 10/04/17 06:01 Last Admin: 04/07/17 06:18 Dose: 5,000 unit Hydrochlorothiazide (Hydrochlorothiazide) 25 mg PO DAILY [facility] PRN Reason: Protocol Stop: 10/04/17 09:01 Last Admin: 04/07/17 09:10 Dose: 25 mg Lisinopril (Zestril) 20 mg PO DAILY [facility] Stop: 10/04/17 09:01 Last Admin: 04/07/17 09:10 Dose: 20 mg Metoclopramide HCl (Reglan) 10 mg IVP Q6HR PRN PRN Reason: Nausea And Vomiting Stop: 10/03/17 23:39 Last Admin: 04/03/17 23:48 Dose: 10 mg Naloxone HCl (Narcan) 0.4 mg IVP Q2MIN PRN PRN Reason: SEE COMMENTS Stop: 10/04/17 00:30 Simvastatin (Zocor) 40 mg PO HS [facility] PRN Reason: Protocol Stop: 10/04/17 21:01 Last Admin: 04/06/17 20:26 Dose: 40 mg Laboratory Tests 04/06/17 04/07/17 07:21 03:45 Hgb 8.6 L Creatinine 1.27 - Imaging and Cardiology Chest Xray: report reviewed Echo: report reviewed - EKG Interpretation EKG results cardiology: other (Telemetry reviewed with average HR previous 12 hours noted to be 66, paced rythm. PVCS and PACs noted.) Consult Discharge Plan - Plan Instructions: Heart Failure (DC), Pacemaker (DC), Bradycardia (DC) Referrals: one week,wound check [Other] (Office will call your with your appointment) three to four week, device check [Other] (Office will call patient at home with follow up appointment) BARRETT CARRERO [Other] - 04/14/17 10:30 am Maulik Coronado MD [Partnered Physician] - (Office will call you with your 3 month appointment)
[2017-04-07 11:23] VITALS: BP 137/56
--- NOTE | 2017-04-07 13:45 | Discharge Summary ---
Date of Encounter: 04/07/17 Time of Encounter: 13:48 - Discharge Diagnosis (1) Mobitz (type) II atrioventricular block Priority: Primary Status: Acute Comments: Symptomatica bradycardia secondary to Mobitz 2 AV block , Status post pacemaker (2) Symptomatic bradycardia Priority: Primary Status: Acute (3) CAD (coronary artery disease) Priority: Secondary Status: Chronic Comments: Stopped digoxin, continue low dose of carvedilol Qualifiers: Coronary Disease-Associated Artery/Lesion type: [place] artery [place] vs. transplanted heart: [place] heart Associated angina: without angina Qualified Code(s): I25.10 - Atherosclerotic heart disease of [place] coronary artery without angina pectoris (4) Diabetes mellitus Priority: Secondary Status: Chronic Qualifiers: Diabetes mellitus type: type 2 Diabetes mellitus complication status: with unspecified complications Diabetes mellitus termination clerk insulin use: without termination clerk use Qualified Code(s): E11.8 - Type 2 diabetes mellitus with unspecified complications (5) HLD (hyperlipidemia) Priority: Secondary Status: Chronic Qualifiers: Hyperlipidemia type: mixed hyperlipidemia Qualified Code(s): E78.2 - Mixed hyperlipidemia (6) HTN (hypertension) Priority: Secondary Status: Chronic Qualifiers: Hypertension type: essential hypertension Qualified Code(s): I10 - Essential (primary) hypertension (7) S/P CABG (coronary artery bypass graft) Priority: Secondary Status: Chronic Hospital course: Mr. Dawson is a 71 year old male PMHx of [place], CAD s/p CABG, DM, HLD, HTN, Chronic anemia went [facility] as a transfer from [place] [facility] for complaints of lightheadedness x 3 days. Patient reported dizziness upon standing/exertion that he describes as lightheadedness. He also reported generalized fatigue/ weakness and [place]. Patient was recently treated at an outside urgent care for Rosacea. Was on Coreg and Digoxin since his Heart attack and CABG almost 20 years ago. He reportd 6 months ago medications were slightly changed so that he took the same amount of digoxin and coreg but spread out as BID instead of once a day, but had not had problems until 3 days ago. Sharee went to [facility] ED and was placed on cardiac rn which revealed heart rate in the 30s. EKGs showed Bradycardia with Mobitz type II second degree heart block. Patient got an CXR which showed no active disease and 1 L of fluid. Labs revealed normal WBC, Hgb 9.2, Hct 27.1 Plts 223, Na 138, K 4.5 Cl 104, Bicarb 28, BUN 38, Cr. 1.81, Glucose 187, Trop negative, Digoxin level 1.6. No prior admission in [facility] system. No baselines for labs. Patient was transferred to [facility] for further work up. Echocardiogram showed an ejection fraction of 50-55%, atypical septal motion. The patient was evaluated by the cardiology service and received a pacemaker that was placed on 04/06/2017. Cardiology has recommended to stop digoxin and to decrease the dose of Coreg down to 3.125 mg twice a day. He is asymptomatic at the moment is stable to be discharged home. - Time Spent with Patient Total time spent providing and/or coordinating discharge services: Greater than 30 minutes (40 min) - Discharge Medications Prescriptions: Carvedilol [Coreg] 3.125 mg PO BIDWM #60 tablet Home Medications: Aspirin [Lo-Dose Aspirin EC] 81 mg PO DAILY 04/03/17 [History] Cetirizine HCl [Zyrtec] 10 mg PO DAILY 04/03/17 [History] Enalapril Maleate [Vasotec] 20 mg PO DAILY 04/03/17 [History] Fenofibrate,Micronized [Fenofibrate] 160 mg PO DAILY 04/03/17 [History] GlipiZIDE [Glipizide ER] 10 mg PO DAILY 04/03/17 [History] Simvastatin [Zocor] 40 mg PO HS 04/03/17 [History] hydroCHLOROthiazide [Hydrochlorothiazide] 25 mg PO DAILY 04/03/17 [History] Carvedilol [Coreg] 3.125 mg PO BIDWM #60 tablet 04/07/17 [Rx] Allergies/Adverse Reactions: 3 Allergy/AdvReac Type Severity Reaction Status Date / Time codeine Allergy See Verified 04/03/17 15:19 Comments Date of admission: 04/03/17 20:45 Primary care physician: Kade Moya MD Consults: 04/03/17 21:13 Consult to Nutrition [CONS] Routine Comment: Consulting Provider: NUTRITION Reason for Dietary Consult: MST Score 04/03/17 23:03 Consult to Cardiology [CONS] Routine Comment: Consulting Provider: Cardiology [facility] Reason for Consult: Symptomatic bradycardia Call Completed: Yes 04/04/17 00:31 Consult to Physician [CONS] Routine Consulting Provider: Pebbles Coronado Reason for Consult: Mobitz 2 AV block Call Completed: Yes - Constitutional Vitals: Temp Pulse Resp BP Pulse Ox 98.4 F 65 16 137/56 97 04/07/17 11:05 04/07/17 11:05 04/07/17 11:05 04/07/17 11:05 04/07/17 11:05 General appearance: Present: cooperative, A&O X 3, pleasant, no acute distress, answers questions appropriately - Head Head exam: Present: atraumatic, normocephalic - Eye Eye exam: Present: PERRL, conjuntiva pink, sclera anicteric Pupils: Present: PERRL Additional comments: Left upper chest wound without signs of hematoma or infection - Neck Neck exam general surgery: Present: supple, trachea midline. Absent: lymphadenopathy - Respiratory Respiratory exam: Present: CTAB. Absent: accessory muscle use, rales, rhonchi, wheezes - Cardiovascular Cardiovascular exam: Present: RRR, +S1, +S2. Absent: diastolic murmur, gallop, rubs, systolic murmur - GI/Abdominal GI/Abdominal exam: Present: normal bowel sounds, soft, no peritoneal signs. Absent: distended, tenderness - Extremities Exam Extremities exam: Present: warm, radial pulses palpable and symmetrical. Absent : calf tenderness, cyanotic, pedal edema - Neurological Exam Neurological exam: Present: CN II-XII intact, oriented X3, no focal deficits. Absent: pronater drift, facial droop, speech deficit - Skin Skin exam: Present: dry, intact - Patient Status Disposition: Home, Self-Care Condition: Good Overall status at discharge: patient is back to baseline - Discharge Instructions Instructions: Heart Failure (DC), Pacemaker (DC), Bradycardia (DC) Follow Up With: one week,wound check [Other] (Office will call your with your appointment) three to four week, device check [Other] (Office will call patient at home with follow up appointment) BARRETT CARRERO [Other] - 04/14/17 10:30 am Maulik Coronado MD [Partnered Physician] - (Office will call you with your 3 month appointment) Additional Instructions: Follow-up with cardiology within the next 2 weeks. Reduced dose of carvedilol down to 3.125 mg twice a day. Stop digoxin - Diet and Activity Activity: increase activity as tolerated Diet: low fat, low cholesterol
[2017-04-07] MEDS ORDERED: FLUARIX QUAD 2017-18 36MOS UP/PF 0.5 ML SYRINGE IM ONE (14:27)
--- NOTE | 2017-04-07 18:00 | Electrocardiograph Report ---
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
== END 2017-04-07 15:02 | disposition home or self-care (01) | DRG 244 ==
LOC: 2NNU 20:45 → SUATTDRO 20:45
PROVIDERS: ADMIT Internal Medicine; ATTEND Internal Medicine

== ENCOUNTER 2018-05-02 07:53 | Inpatient (IN) ==
[2018-05-02] MEDS ORDERED: Ondansetron 4 MG/2 ML VIAL IVP PRN (10:10)
[2018-05-02] MEDS ORDERED: Acetaminophen 325 MG TABLET PO PRN (10:10)
[2018-05-02] MEDS ORDERED: *HR* Dextrose 50 % in Water (Syg) 50 ML SYRINGE IVP PRN (10:15)
[2018-05-02] MEDS ORDERED: D5% in Water 1,000 ML IVC PRN (10:15)
[2018-05-02] MEDS ORDERED: Dextrose Gel 15 GM/37.5 ML TUBE PO PRN ×2 (10:15)
--- NOTE | 2018-05-02 10:20 | Internal Med History&Physical ---
Date of Encounter: 05/02/18 Time of Encounter: 10:17 Internal Medicine - H&P: HPI Chief complaint: Back pain after a fall Admitted From: Emergency Dept History of present illness: Fabian Dawson is a 72 M w hx CAD s/p CABG '99, heart block s/p pacemaker '18, COPD, DM2, HTN, HLD, chronic anemia, remote pericarditis, who presented per EMS to [facility] for AMS. Per , last night was fine during dinner and ate normally. That evening, though, she noticed him stumbling around, seemingly confused, and saw him fall three times, and during this time he was diaphoretic and moaning. She called EMS who noted pt's BG was 45 and gave D50. states that he does take glipizide, but that dose was decreased a few months ago due to hypoglycemia at time of his pacemaker insertion. In the ED, pt's glucose initially 200 but on repeat already back down to 100 so D5 gtt started. Complaining of back pain after fall so CT obtained which shows acute L1 compression fracture, and incidentally revealed large adrenal mass and large renal mass. CT head was unremarkable. Labs significant for Cr up to 1.8. CXR showed cardiomegaly as well as new spot in bilateral bases. On interview here, pt denies previous episodes of falling. Does state that his back currently hurts and no relief with tylenol. He and his are concerned about the "spots on his kidneys" and they were updated as to imaging findings. Of note, he also has been experiencing itchy torso rash refractory to initial PO antihistamines and steroids, and they are wondering if the rash could be related to the possible tumors. Past medical, surgical, social, and family histories reviewed and updated as below. Past Med Surg Social Fam HX - Past Medical History Medical history: coronary artery disease, diabetes, hyperlipidemia, hypertension, other Additional medical history: CAROTID STENOSIS Psychiatric history: anxiety, depression - Past Surgical History Surgical History: angioplasty/stent, coronary bypass (CABG) (1998) - Social History Smoking Status: Former smoker Smokeless Tobacco Status: No Alcohol use: none Drug use: none - Family History Mother Living Status: Hx Family Cardiac Disorders: Yes Father Living Status: Hx Family Cardiac Disorders: No Internal Medicine - H&P: Meds Aspirin [Lo-Dose Aspirin EC] 81 mg PO DAILY 04/03/17 [History] Cetirizine HCl [Zyrtec] 10 mg PO DAILY 04/03/17 [History] Enalapril Maleate [Vasotec] 20 mg PO DAILY 04/03/17 [History] Fenofibrate,Micronized [Fenofibrate] 160 mg PO DAILY 04/03/17 [History] Simvastatin [Zocor] 40 mg PO HS 04/03/17 [History] glipiZIDE [Glipizide ER] 5 mg PO DAILY 04/03/17 [History] hydroCHLOROthiazide [Hydrochlorothiazide] 25 mg PO DAILY 04/03/17 [History] Carvedilol [Coreg] 3.125 mg PO BIDWM #60 tablet 04/07/17 [Rx] Famotidine [Pepcid] 20 mg PO BID #10 tablet 04/24/18 [Rx] Montelukast [Singulair] 10 mg PO DAILY 04/24/18 [History] [place]-3 Fatty Acids [Fish Oil] 300 mg PO DAILY 04/24/18 [History] Terbinafine HCl 250 mg PO DAILY 05/02/18 [History] Allergy/AdvReac Type Severity Reaction Status Date / Time codeine Allergy See Verified 05/02/18 04:35 Comments All Systems PM: A 10-system review of systems was performed and is negative for pertinent findings except as documented above in the HPI. - Constitutional Vitals: Temp Pulse Resp BP Pulse Ox 97.8 F 81 16 138/63 97 05/02/18 09:31 05/02/18 09:31 05/02/18 09:31 05/02/18 09:31 05/02/18 09:31 Exam: General: NAD, good eye contact, well appearing, elderly Head: Atraumatic, normocephalic. Face symmetric Eyes: EOMI, sclerae anicteric ENT: Mucous membranes moist. Normal oral mucosa. Trachea midline. Thoracic: No visible chest wall deformities. Diffuse end expiratory wheezing Cardio: Normal S1 and S2, regular rate and rhythm, no murmurs Abdomen: Soft, nontender, nondistended. Bowel sounds present. No rebound. Does have tenderness in his mid back Extremities: Warm, well perfused. DP pulses 2+ b/l. Does have pitting edema to knees bilaterally. Skin: excoriations on arms Neuro: Awake, fully oriented. Good memory, concentration, attention. Speech fluent. CN II-XII grossly intact. Strength 5/5 in b/l UE and LE - Summary of Assessment and Plan Summary of Assessment and Plan: Fabian Dawson is a 72 M w hx CAD s/p CABG '99, heart block s/p pacemaker '18, COPD, DM2, HTN, HLD, chronic anemia, remote pericarditis, who p/w confusion, fall, and back pain, found to have hypoglycemia, acute compression fracture, and evidence on CXR of pulmonary nodules and cardiomegaly as well as evidence on CT a/p of new adrenal and renal masses. Hypoglycemia: suspect 2/2 malignant process as described below - holding glipizide - MIVF D5 0.45%NS @75 Abnormal CXR: interval development of cardiomegaly as well as LLL and RLL nodules, which in light of new adrenal and renal masses raise high suspicion for malignancy, which if this is the case then the cardiomegaly could be from an effusion - TTE - CT w con when renal function improves - Onc consult to guide diagnostic evaluation R Renal and Adrenal masses: Onc consult and plan for CT w con when renal function improves as above Rash: torso and arms, very itchy, possibly related to suspected malignant process, continue benadryl prn and claritin SHIVAM on CKD3a: - holding hctz and lisinopril, and avoid nephrotoxic meds - fluids as above - repeat in AM Fall: likely 2/2 hypoglycemia above L1 Compression Fx w refractory pain: - Ortho Dr Zhang consult - PT/OT - pain control w tylenol, tramadol, norco COPD: very wheezy, will give duonebs q4h but withhold any steroids pending oncologic workup as above HTN: home coreg 3.125 bid, holding hctz and lisinopril as above CAD/PAD/HLD: home statin, ASA Pacemaker: noted Chronic anemia: Hb ~9, stable, keep Hb >8 PPx: sqh FEN: regular, MIVF w dextrose as above Lines: PIV Consults: Code: Full Dispo: patient requires inpatient eval and management at this time. Anticipate 2-3 days. Will be homegoing
[2018-05-02] MEDS ORDERED: D5% in 0.45% NACL 1,000 ML IVC SCH (10:30)
[2018-05-02] MEDS: *HR* HYDROcodone/Acet 5/325 mg TABLET PO PRN (10:53)
[2018-05-02] MEDS ORDERED: Isovue-370 500 ML BOTTLE IVP ONE (11:30)
--- NOTE | 2018-05-02 11:37 | Oncology Inp Consult Note ---
Date of Encounter: 05/02/18 Time of Encounter: 11:30 Assessment and Plan (1) Renal mass Status: Acute Assessment and plan: Constellation of right renal mass, adrenal lesion as well as pulmonary lesions concerning for metastatic process. Unclear if this is a metastatic renal cell carcinoma, lung carcinoma or malignancy from another site. To further evaluate this, I ordered a CT of the abdomen and pelvis with/without IV contrast requesting adrenal/renal protocol. I have also ordered CT scan the chest with contrast to further evaluate pulmonary lesions and bone scan to complete staging workup. Baseline LDH has been ordered. We will need to consider biopsy of one of these lesions pending imaging results. (2) Anemia Status: Chronic Assessment and plan: Mr. Dawson has a long-standing anemia dating back to at least 04/03/2017. He has developed macrocytosis. He had documented B12 deficiency in March 2017. I repeated nutritional studies for B12, folate and iron and placed him on B12 injections daily 5. Qualifiers: Anemia type: due to chronic kidney disease Chronic kidney disease stage: stage 3 (moderate) Qualified Code(s): N18.3 - Chronic kidney disease, stage 3 (moderate); D63.1 - Anemia in chronic kidney disease (3) Lung mass Status: Acute Assessment and plan: As above - Data of Consult Patient: new to practice Requesting Physician: Sujit Recinos Primary Care Provider: PCP NONE - Consult Narrative Reason for consult: Renal and adrenal mass History of present illness: Mr. Dawson very pleasant 72-year-old man since the hospital with hypoglycemia which resulted in confusion followed by a fall. Patient was as baseline but at 10 PM, he felt short of breath then became confused. He fell against the bed for home. Patient developed acute severe low back pain. He was transported via EMS to the emergency department where CT imaging of the lumbar spine revealed a mild acute appearance. Endplate traumatic compression fracture at L1 vertebral body with less than 10% loss of vertebral body height. He was an indeterminate 5 x 3.2 cm adrenal mass and indeterminate mid pole right renal lesion measuring 3.5 cm in size in addition, chest x-ray revealed [address] scan renal/adrenal protocol was recommended as was CT of the chest. Currently, he is doing okay. Back pain remains a problem. It is currently tolerable. No radiation to the leg. No fever, chills or symptoms of infection. He states he has lost significant weight but this was intentional following cardiac surgery. Most recently, his weight actually gone up a bit he has mild dyspnea on exertion. No resting shortness of breath or chest pain. He denies a hematuria or dysuria. Mild urinary frequency and nocturia which are stable and chronic Past Med Surg Social Fam HX - Past Medical History Medical history: coronary artery disease, diabetes, hyperlipidemia, hypertension, other Additional medical history: CAROTID STENOSIS Psychiatric history: anxiety, depression - Past Surgical History Surgical History: angioplasty/stent, coronary bypass (CABG) (1998) - Social History Smoking Status: Former smoker Smokeless Tobacco Status: No Alcohol use: none Drug use: none - Family History Mother Living Status: Hx Family Cardiac Disorders: Yes Father Living Status: Hx Family Cardiac Disorders: No Medications and Allergies Aspirin [Lo-Dose Aspirin EC] 81 mg PO DAILY 04/03/17 [History] Cetirizine HCl [Zyrtec] 10 mg PO DAILY 04/03/17 [History] Enalapril Maleate [Vasotec] 20 mg PO DAILY 04/03/17 [History] Fenofibrate,Micronized [Fenofibrate] 160 mg PO DAILY 04/03/17 [History] Simvastatin [Zocor] 40 mg PO HS 04/03/17 [History] glipiZIDE [Glipizide ER] 5 mg PO DAILY 04/03/17 [History] hydroCHLOROthiazide [Hydrochlorothiazide] 25 mg PO DAILY 04/03/17 [History] Carvedilol [Coreg] 3.125 mg PO BIDWM #60 tablet 04/07/17 [Rx] Famotidine [Pepcid] 20 mg PO BID #10 tablet 04/24/18 [Rx] Montelukast [Singulair] 10 mg PO DAILY 04/24/18 [History] [place]-3 Fatty Acids [Fish Oil] 300 mg PO DAILY 04/24/18 [History] Terbinafine HCl 250 mg PO DAILY 05/02/18 [History] Allergy/AdvReac Type Severity Reaction Status Date / Time codeine Allergy See Verified 05/02/18 04:35 Comments All systems: reviewed and no additional remarkable complaints except as stated Constitutional: Present: fatigue Eyes: Present: as per HPI Ears: Present: as per HPI Nose, mouth and throat: Present: as per HPI Cardiovascular: Present: as per HPI Respiratory: Present: as per HPI Gastrointestinal: Present: as per HPI Musculoskeletal: Present: back pain Neurological: Present: as per HPI Oncology - Exam - Constitutional General appearance: average body habitus, cooperative, no acute distress - Head Head exam: Present: atraumatic, normal inspection, normocephalic - Eye Eye exam: Present: normal appearance, conjuntiva pink, sclera anicteric - ENT ENT exam: Present: mucous membranes moist, normal exam, normal oropharynx - Neck Neck exam: Present: full ROM, normal inspection - Respiratory Respiratory exam: Present: CTAB - Cardiovascular Cardiovascular exam: Present: RRR - GI/Abdominal GI/Abdominal exam: Present: normal bowel sounds, soft - Extremities Exam Extremities exam: Present: normal inspection - Back Exam Back exam: Present: vertebral tenderness - Neurological Exam Neurological exam: Present: alert, CN II-XII intact, oriented X3, no focal deficits Oncology Inpatient Results Labs: Labs dated 05/02/2018 white count 11.9, hemoglobin 9.0, MCV 101.7, platelet count 170,000. CMP significant for creatinine of 1.72. Glucose was 58. Of note, patient's B12 level was 199 [id number]. CT OF THE LUMBAR SPINE WITHOUT CONTRAST 05/02/2018 FINDINGS: BONES/ALIGNMENT: There is a mild superior endplate compression fracture of L1 with less than 10% loss of vertebral body height. The other vertebra demonstrate normal height. There is normal alignment. The spinous and transverse processes are intact. DEGENERATIVE CHANGES: Mild to moderate multilevel degenerative changes most prominent at L4-5 and L5-S1. Bilateral L4-5 and L5-S1 hypertrophic facet degenerative changes are noted. No evidence of severe spinal canal stenosis. SOFT TISSUES/RETROPERITONEUM: No paraspinal hematoma. Severe atherosclerotic calcifications are noted of the aorta. Intrarenal vascular calcifications are also noted. There is a 3 mm obstructing stone in the mid pole of the right kidney. There is an indeterminate partially imaged lesion of the mid pole right kidney measuring at least 3.5 cm in size. There is also a right adrenal mass measuring 5 x 3.2 cm in size. There is diverticulosis of the sigmoid colon. CT/CT lumbar spine wo con IMPRESSION: Mild acute appearing superior endplate traumatic compression fracture of L1 with less than 10% loss of vertebral body height. Indeterminate 5 x 3.2 cm adrenal mass and indeterminate mid pole right renal lesion measuring 3.5 cm in size. Recommend renal/adrenal mass protocol CT or MRI for further evaluation. Adrenal and renal neoplastic disease cannot be excluded. SINGLE XRAY VIEW OF THE CHEST 05/02/2018 4:58 am COMPARISON: 04/07/2017 HISTORY: ORDERING SYSTEM PROVIDED HISTORY: altered mental status FINDINGS: Pacer device redemonstrated overlying left hemithorax. No focal consolidations, pleural effusions or pulmonary edema. There is a new pulmonary nodule to the left lower lung zone measuring 2.3 x 2.6 cm. Suspect there is also a pulmonary nodule to the right lower lung zone measuring 1.6 x 1.7 cm. No pneumothoraces. Cardiac silhouette is mildly enlarged and appears overall enlarged from prior exam. This may relate to differences in technique (AP versus PA). Mediastinal silhouette is within normal limits. No acute bony abnormalities. Stable appearance to median sternotomy wires. XR/XR chest 1V portable IMPRESSION: No acute pulmonary abnormality. Mild cardiac enlargement, overall enlarged from prior exam 04/07/2017. This may relate at least in part to differences in technique (AP versus PA). However, developing cardiomyopathy or pericardial effusion not excluded. Clinical correlation suggested and patient may benefit from echocardiogram. There has also been interval development of pulmonary nodule to the left lower lung zone and suspected to the right lower lung zone as well. Recommend further evaluation with CT chest with IV contrast. Consult Discharge Plan - Plan Referrals: NONE,PCP [Primary Care Provider] - Inpatient Charges Provider: Dr. Myles Wiseman Consult - Inpatient Medicare Only: [id number]
[2018-05-02] MEDS: Cyanocobalamin (B-12) 1,000 MCG/ML VIAL IM SCH (12:47)
[2018-05-02] MEDS: Famotidine 20 MG TABLET PO SCH (12:47)
[2018-05-02 12:56] LABS: % Iron Saturation 15 % (20-55); Iron 44 mcg/dL (65-175); Lactate Dehydrogenase 237 Units/L (140-271); Transferrin 216 mg/dL (203-362)
[2018-05-02 13:13] LABS: Ferritin 308 ng/mL (20-250)
[2018-05-02] MEDS ORDERED: traMADol 50 MG TABLET PO PRN (13:16)
--- NOTE | 2018-05-02 15:01 | Orthopedic Consult Note ---
Date of Encounter: 05/02/18 Time of Encounter: 14:54 History of Present Illness Chief complaint: Back pain HPI: Mr. Dawson is a 72 year old male who became hypoglycemic and had at least 3 witnessed falls in his home. He was brought to the emergency room at [facility] where CT scanning of his lumbar spine revealed an acute L1 compression fracture. Unfortunately it also revealed evidence of a right renal and adrenal mass. The patient was transferred to [facility] for further evaluation and treatment. Patient has had no previous back complaints. Denies neurovascular complaints. I reviewed the patient's completed history and physical exam and reviewed the completed medical record. Vital signs are stable. Patient is afebrile. Examination reveals pain to percussion of the thoracolumbar spine. Neurovascular exam is grossly intact. I reviewed multiple CT scan studies including the chest/thoracic spine, lumbar spine as well as CT scan of the abdomen and pelvis. These all reveal a minimal superior endplate compression fracture of L1. There are no other acute fractures. There are multiple degenerative changes seen especially in the lower thoracic spine as well as the lower lumbar spine. No evidence of severe canal or foraminal stenosis. Also noted is a lesion of the right kidney and the right adrenal gland. There also is a so within the right ureter. Impression: Acute L1 superior endplate compression fracture Recommendation: Discussed that this is a nonoperative fracture and the treatment is very conservative. Would need to avoid aggravating positions such as lifting flexing and prolonged sitting. No indications for any brace use. We will also need to pursue pain management though need to be cautious to minimize the risk of constipation from a combination of narcotics, pain and the involvement of the lumbar plexus. Patient has been seen and further workup is in process in regards to his renal and adrenal mass per hematology oncology. Thank you very much for allowing me to see and care for Mr. Dawson. Sincerely, Duke Zhang,DO Past Med Surg Social Fam HX - Past Medical History Medical history: coronary artery disease, diabetes, hyperlipidemia, hypertension, other Additional medical history: CAROTID STENOSIS Psychiatric history: anxiety, depression - Past Surgical History Surgical History: angioplasty/stent, coronary bypass (CABG) (1998) - Social History Smoking Status: Former smoker Smokeless Tobacco Status: No Alcohol use: none Drug use: none - Family History Mother Living Status: Hx Family Cardiac Disorders: Yes Father Living Status: Hx Family Cardiac Disorders: No Medications and Allergies Aspirin [Lo-Dose Aspirin EC] 81 mg PO DAILY 04/03/17 [History] Cetirizine HCl [Zyrtec] 10 mg PO DAILY 04/03/17 [History] Enalapril Maleate [Vasotec] 20 mg PO DAILY 04/03/17 [History] Fenofibrate,Micronized [Fenofibrate] 160 mg PO DAILY 04/03/17 [History] Simvastatin [Zocor] 40 mg PO HS 04/03/17 [History] glipiZIDE [Glipizide ER] 5 mg PO DAILY 04/03/17 [History] hydroCHLOROthiazide [Hydrochlorothiazide] 25 mg PO DAILY 04/03/17 [History] Carvedilol [Coreg] 3.125 mg PO BIDWM #60 tablet 04/07/17 [Rx] Famotidine [Pepcid] 20 mg PO BID #10 tablet 04/24/18 [Rx] Montelukast [Singulair] 10 mg PO DAILY 04/24/18 [History] [place]-3 Fatty Acids [Fish Oil] 300 mg PO DAILY 04/24/18 [History] Terbinafine HCl 250 mg PO DAILY 05/02/18 [History] Allergy/AdvReac Type Severity Reaction Status Date / Time codeine Allergy See Verified 05/02/18 04:35 Comments All Systems Reviewed: The remainder of the systems were reviewed and are negative Physical Exam - Constitutional Vitals: Temp Pulse Resp BP Pulse Ox 97.8 F 81 16 138/63 97 05/02/18 09:31 05/02/18 09:31 05/02/18 09:31 05/02/18 09:31 05/02/18 09:31 Results - Labs Labs: Abnormal lab results POC Glucose 104 mg/dL (70-99) H 05/02/18 12:43 Iron 44 mcg/dL (65-175) L 05/02/18 12:19 % Saturation 15 % (20-55) L 05/02/18 12:19 Ferritin 308 ng/mL (20-250) H 05/02/18 12:19 All other labs normal. - Diagnostic results CT Scan - lumbar: image reviewed Consult Discharge Plan - Plan Referrals: NONE,PCP [Primary Care Provider] -
[2018-05-02] MEDS: Ipratropium/Albuterol Neb 3 ML IH SCH ×2 (15:20→20:34)
[2018-05-02] MEDS ORDERED: DEXTROSE IVC SCH (16:30)
[2018-05-02] MEDS ORDERED: D5 IVC SCH (16:30)
[2018-05-02] MEDS ORDERED: NACL IVC SCH (16:30)
[2018-05-02] MEDS ORDERED: WATER IVC SCH (16:30)
[2018-05-02] MEDS: *HR* Heparin 5,000 UNIT/ML VIAL SQ SCH (17:46)
[2018-05-02] MEDS: Dextrose 50 % in Water (Vial) 50 ML in D5% in 0.2% NACL 500 ML IVC SCH (17:46)
[2018-05-03] MEDS: Ipratropium/Albuterol Neb 3 ML IH SCH ×7 (00:29→23:56)
[2018-05-03] MEDS: *HR* Heparin 5,000 UNIT/ML VIAL SQ SCH ×3 (00:43→16:41)
[2018-05-03] MEDS: Dextrose 50 % in Water (Vial) 50 ML in D5% in 0.2% NACL 500 ML IVC SCH ×3 (00:43→18:34)
[2018-05-03 05:02] LABS: Hematocrit 27.7 % (37.5-50.1); Hemoglobin 8.6 g/dL (12.9-16.9); Mean Corpuscular Hemoglobin 30.3 pg (28.0-33.3); Mean Corpuscular Volume 97.5 fL (83.0-100.0); Platelet Count 150 K/mcL (140-400); Red Blood Count 2.84 M/mcL (4.19-5.50); Red Cell Distribution Width 15.1 % (11.5-14.5)
[2018-05-03 05:10] LABS: Prothrombin Time 11.1 Seconds (9.4-12.1)
[2018-05-03 05:29] LABS: Albumin 3.1 g/dL (3.5-5.7); Albumin/Globulin Ratio 1.2 (1.1-2.2); Bilirubin,Total 0.5 mg/dL (0.3-1.0); Calcium 8.9 mg/dL (8.6-10.3); Globulin 2.6 g/dL (2.4-3.5); Magnesium 2.1 mg/dL (1.6-2.6); Phosphorous 3.5 mg/dL (2.7-4.5); Potassium 5.1 mEq/L (3.5-5.1); Total Protein 5.7 g/dL (6.4-8.9)
[2018-05-03] MEDS: Cyanocobalamin (B-12) 1,000 MCG/ML VIAL IM SCH (08:03)
[2018-05-03] MEDS: Loratadine 10 MG TABLET PO SCH (08:04)
[2018-05-03] MEDS: Famotidine 20 MG TABLET PO SCH (08:04)
[2018-05-03] MEDS: Aspirin Enteric Coated 81 MG Tablet PO SCH (08:05)
[2018-05-03] MEDS: *HR* HYDROcodone/Acet 5/325 mg TABLET PO PRN ×2 (08:19→21:28)
--- NOTE | 2018-05-03 11:11 | Internal Med Progress Note ---
Hospitalist Progress Note - Encounter Date of Encounter: 05/03/18 Time of Encounter: 11:09 - Subjective Interval History: Patient sitting up in chair. Complains of back pain, bilateral knee pain and left lower rib pain. He does not feel good. No nausea or vomiting. Tolerating diet well. No fever or chills reported overnight - Exam Vitals: Temp Pulse Resp BP Pulse Ox 98.5 F 77 18 119/70 96 05/03/18 07:06 05/03/18 07:06 05/03/18 07:15 05/03/18 07:06 05/03/18 07:15 Exam: General: Patient is alert, mild distress, oriented x 3 ENT: Mucous membranes moist Respiratory: Decreased breath sounds at both bases Cardiovascular: Regular rate and rhythm. s1 and s2 normal No clicks, rubs, gallops, or murmurs. No pedal edema Abdomen: Abdomen is soft, nontender. Bowel sounds are present Musculoskeletal: Spontaneously moving all extremities; spinal tenderness present in her lower back Skin: warm, dry, intact. Neuro: Alert oriented x 3 normal cranial nerves, no focal deficits - Assessment and Plan (1) Renal mass Current Visit: Yes Status: Acute Assessment and Plan: Patient has bilateral renal masses concerning for synchronous primary malignancy. Possible metastasis to lung and liver and bilateral adrenal glands and the right 10th rib. Oncology following. Plan is to obtain biopsy of one of the masses. We will continue to treat patient supportively. (2) Lumbar compression fracture Current Visit: Yes Status: Acute Assessment and Plan: Evaluated by orthopedics. Recommend conservative management. (3) Anemia Current Visit: Yes Status: Chronic Assessment and Plan: Hemoglobin 8.6. States and at baseline. We will continue to monitor closely. Due to long-standing chronic kidney disease. Mild iron deficiency. Will place patient on iron supplements. (4) CAD (coronary artery disease) Current Visit: Yes Status: Chronic Assessment and Plan: Continue aspirin, beta jackie and statin. no chest pain at this time (5) Diabetes mellitus Current Visit: Yes Status: Chronic Assessment and Plan: Blood sugars were low this morning. At 66. Holding insulin for now. Continue to monitor blood sugars closely. (6) HTN (hypertension) Current Visit: Yes Status: Chronic Assessment and Plan: Continue carvedilol. Blood pressure is well controlled at this time. - Time Spent with Patient Total time spent is greater than 50% in coordination of care (as documented) at patient's floor/unit and/or counseling patient: Internal Medicine: Result - Labs CBC & Chem 7: 05/03/18 04:16 05/03/18 04:16 Labs: Short CBC 05/03/18 Range/Units 04:16 WBC 5.1 D (4.3-11.1) K/mcL Hgb 8.6 L (12.9-16.9) g/dL Hct 27.7 L (37.5-50.1) % Plt Count 150 (140-400) K/mcL BMP 05/03/18 04:16 Sodium 139 Potassium 5.1 Chloride 108 H Carbon Dioxide 25 BUN 29 H Creatinine 1.58 H Glucose 66 L Calcium 8.9 Liver Function 05/03/18 Range/Units 04:16 Total Bilirubin 0.5 (0.3-1.0) mg/dL AST 31 (13-39) Units/L ALT 17 (7-52) Units/L Alkaline Phosphatase 35 (34-104) Units/L Albumin 3.1 L (3.5-5.7) g/dL - ABG Interpretation ABG results: PT/INR, D-dimer PT 11.1 Seconds (9.4-12.1) 05/03/18 04:16 - Impressions Impressions Echocardiogram 05/02/18 11:04 Impressions: LVEF 35-40%. Moderate left ventricular diastolic dysfunction. Normal right ventricular structure and function. Moderate mitral regurgitation. Mild tricuspid regurgitation. Mild pulmonary hypertension. Left Ventricular Wall Motion: Rest Echo Findings The apex, apical inferior, mid inferior, basal inferior, apical anterior, mid anterior, basal anterior, apical septal, mid inferior septal, basal inferior septal, apical lateral, mid anterior lateral, basal anterior lateral, mid anterior septal, mid inferior lateral, basal anterior septal and basal inferior lateral miranda were hypokinetic. Findings: Study Quality * Technically adequate exam. ECG Findings * Normal sinus rhythm. Left Ventricle * LVEF 35-40%. * Mildly dilated left ventricle. * Mild concentric left ventricular hypertrophy. * Moderate left ventricular diastolic dysfunction. * Atypical septal motion consistent with post-operative status. Right Ventricle * Normal right ventricular structure and function. Left Atrium * Mildly dilated left atrium. Right Atrium * Normal right atrial size. Interatrial Septum * No evidence of PFO by color Doppler. Aortic Valve * Mild aortic regurgitation. * No aortic stenosis. * Normal aortic valve structure. * Trileaflet aortic valve. Mitral Valve * Normal mitral valve structure. * Moderate mitral regurgitation. * No mitral stenosis. Tricuspid Valve * No tricuspid stenosis. * Normal tricuspid valve structure. * Mild tricuspid regurgitation. * Mild pulmonary hypertension. * Estimated RVSP is 40 mmHg. * Estimated RA pressure is 5 mmHg. Pulmonic Valve * No pulmonic regurgitation. Aorta * Normally sized aortic root. Pericardium * The pericardium appears normal. IVC * Normal IVC dimensions and inspiratory collapse. Pulmonary Artery * Normal visualized portions of the main pulmonary artery. Device lead * A device lead was visualized in the right atrium and right ventricle. Abdomen/Pelvis CT 05/02/18 11:30 IMPRESSION: 1. 5.9 x 5.2 cm right renal mass compatible with primary renal malignancy. There is suspected tumor thrombus within a peripheral segmental right renal vein. 2. 3.2 x 2.0 cm left renal mass protruding into the renal sinus, possibly representing a synchronous primary malignancy. 3. Indeterminate soft tissue surrounding the left UPJ without obstruction. Indeterminate hyperdense left lower pole renal lesion 4. Pulmonary, hepatic, and bilateral adrenal metastatic disease 5. Metastatic retroperitoneal and celiac adenopathy 6. Emphysema, cholelithiasis D/ / Faisal Taylor MD / Faisal Taylor MD Interpreting Provider: Faisal Taylor MD Chest CT 05/02/18 11:31 IMPRESSION: 1. 5.9 x 5.2 cm right renal mass compatible with primary renal malignancy. There is suspected tumor thrombus within a peripheral segmental right renal vein. 2. 3.2 x 2.0 cm left renal mass protruding into the renal sinus, possibly representing a synchronous primary malignancy. 3. Indeterminate soft tissue surrounding the left UPJ without obstruction. Indeterminate hyperdense left lower pole renal lesion 4. Pulmonary, hepatic, and bilateral adrenal metastatic disease 5. Metastatic retroperitoneal and celiac adenopathy 6. Emphysema, cholelithiasis D/ / Faisal Taylor MD / Faisal Taylor MD Interpreting Provider: Faisal Taylor MD Bone Scan Nuclear Medicine 05/02/18 11:39 IMPRESSION: Suspected right tenth rib metastasis. No abnormal uptake at the L1 fracture site. D/ / 05/03/2018 10:52:33 Kel Jarvis MD / neeta Interpreting Provider: Kel Jarvis MD Consult Discharge Plan - Plan Referrals: NONE,PCP [Primary Care Provider] - (2) Lumbar compression fracture Qualifiers: Encounter type: initial encounter Lumbar vertebra fracture level: L1 Fracture type: closed Qualified Code(s): S32.010A - Wedge compression fracture of first lumbar vertebra, initial encounter for closed fracture (3) Anemia Qualifiers: Anemia type: due to chronic kidney disease Chronic kidney disease stage: stage 3 (moderate) Qualified Code(s): N18.3 - Chronic kidney disease, stage 3 (moderate); D63.1 - Anemia in chronic kidney disease (4) CAD (coronary artery disease) Qualifiers: Coronary Disease-Associated Artery/Lesion type: [place] artery [place] vs. 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
--- NOTE | 2018-05-03 14:06 | Oncology Inp Progress Note ---
<Desire Gordon - Last Filed: 05/03/18 17:39> Date of Encounter: 05/03/18 Time of Encounter: 11:30 (1) Adrenal mass Current Visit: No Status: Acute Assessment and plan: Adrenal mass, renal mass, lung lesions Status: Acute Assessment and plan: Constellation of right renal mass, adrenal lesion as well as pulmonary lesions concerning for metastatic process. Unclear if this is a metastatic renal cell carcinoma, lung carcinoma or malignancy from another site. To further evaluate this, I ordered a CT of the abdomen and pelvis with/without IV contrast requesting adrenal/renal protocol. I have also ordered CT scan the chest with contrast to further evaluate pulmonary lesions and bone scan to complete staging workup. Baseline LDH has been ordered. We will need to consider biopsy of one of these lesions pending imaging results. LDH: 237 Plan: Consult to Interventional Radiology for CT-guided biopsy of adrenal mass ordered for 05/04/18. NPO at midnight. Patient may continue Aspirin 81 mg PO and heparin 5000 units SQ. (2) Renal mass Current Visit: Yes Status: Acute Assessment and plan: same as above (3) Anemia Current Visit: Yes Status: Chronic Assessment and plan: (2) Anemia Status: Chronic Assessment and plan: Mr. Dawson has a long-standing anemia dating back to at least 04/03/2017. He has developed macrocytosis. He had documented B12 deficiency in March 2017. I repeated nutritional studies for B12, folate and iron and placed him on B12 injections daily 5. B12: 397 folate: iron profile: Fe 44, sat 15%, ferritin 308 Plan: Stop B12 injections. Ordered Venofer 400 mg IV once. Qualifiers: Anemia type: due to chronic kidney disease Chronic kidney disease stage: stage 3 (moderate) Qualified Code(s): N18.3 - Chronic kidney disease, stage 3 (moderate); D63.1 - Anemia in chronic kidney disease Qualifiers: Anemia type: due to chronic kidney disease Chronic kidney disease stage: stage 3 (moderate) Qualified Code(s): N18.3 - Chronic kidney disease, stage 3 (moderate); D63.1 - Anemia in chronic kidney disease Oncology: Subj Interval history: Fabian is awake an alert in bed. He notes that he continues with bilateral knee pain from his fall. He states that he is sore all over because he hit his back, hip, legs, left elbow and right arm. Discussed need for biopsy and plan to be NPO at midnight and to have the biopsy done tomorrow. He is agreeable to the plan and "wants to know what type of cancer I have so we can figure out what to do." He notes that he has dementia and does forget about some conversations. He requests to write plan on the dry-erase board in his room. Details left for him and his . He denies fever or chills. Denies shortness of breath, cough, nausea, vomiting, diarrhea, constipation, and abdominal pain. - Constitutional General appearance: cooperative, no acute distress - Head Head exam: Present: normal inspection, normocephalic - Neck Neck exam: Present: normal inspection. Absent: lymphadenopathy, tenderness - Respiratory Respiratory exam: Present: decreased breath sounds, CTAB. Absent: rales, rhonchi, wheezes - Cardiovascular Cardiovascular exam: Present: RRR - GI/Abdominal GI/Abdominal exam: Present: distended, normal bowel sounds - Extremities Exam Extremities exam: Present: normal capillary refill, normal inspection Additional comments: scattered bruising - Neurological Exam Neurological exam: Present: alert, oriented X3. Absent: facial droop, speech d eficit - Psychiatric Psychiatric exam: Present: normal affect, normal mood - Skin Skin exam: Present: dry, pallor Oncology: Obj Data - Labs CBC & Chem 7: 05/03/18 04:16 05/03/18 04:16 Consult Discharge Plan - Plan Referrals: NONE,PCP [Primary Care Provider] - Inpatient Charges Provider: Dr. Myles Wiseman <Bret Wiseman - Last Filed: 05/03/18 20:07> Date of Encounter: 05/03/18 (1) Renal mass Current Visit: Yes Status: Acute (2) Anemia Current Visit: Yes Status: Chronic Qualifiers: Anemia type: due to chronic kidney disease Chronic kidney disease stage: stage 3 (moderate) Qualified Code(s): N18.3 - Chronic kidney disease, stage 3 (moderate); D63.1 - Anemia in chronic kidney disease (3) Lung mass Current Visit: No Status: Acute Oncology: Obj Data - Labs CBC & Chem 7: 05/03/18 04:16 05/03/18 04:16 Inpatient Charges Provider: Dr. Myles Wiseman Follow up - Inpatient: [id number] - Attending Attestation I examined this patient and my medical decision-making was reviewed with the Advanced Practice Nurse. I agree with the documented findings, disposition and treatment plan as described except to the extent set forth below. Mr. Dawson underwent CT imaging. This is reviewed in the note, and I personally reviewed this imaging as well. He was ambulatory today. Back pain is better controlled but still present. It can be sharp at times. Neurosurgery is recommended against any intervention given the minimal compression. On examination, he is chronically ill. He has multiple ecchymoses as well as excoriations. Lungs are clear to auscultation. Heart regular rate and rhythm. Biopsy scheduled tomorrow. I do not have the results to review yet. I did review his CT imaging which showed widely metastatic process most consistent clinically with renal cell carcinoma involving the retroperitoneum, adrenal glands, bilateral kidneys, liver as well as lungs area bone scan is without evidence of metastases. This was discussed with the patient and his today. Therapeutic options will include systemic immunotherapy/TKI. Further discussion pending biopsy results. Please proceed with discharge planning. We will arrange for outpatient follow-up. We will review pathology with the patient if he remains hospitalized, otherwise will discuss after discharge at our outpatient appointment. He will receive IV iron for functional iron deficiency. B12 discontinued but he should take 1000 mcg daily or injections monthly after discharge.
[2018-05-03] MEDS ORDERED: Iron Sucrose Complex 400 MG in 0.9 % Sodium Chloride 250 ML IVPB ONE (17:40)
[2018-05-03] MEDS: Insulin LISPRO 300 UNITS/3 ML VIAL SQ SCH (18:34)
[2018-05-04] MEDS: *HR* Heparin 5,000 UNIT/ML VIAL SQ SCH ×3 (00:33→16:56)
[2018-05-04] MEDS: Dextrose 50 % in Water (Vial) 50 ML in D5% in 0.2% NACL 500 ML IVC SCH ×3 (00:35→16:01)
[2018-05-04] MEDS: Ipratropium/Albuterol Neb 3 ML IH SCH ×6 (04:08→20:32)
[2018-05-04 05:36] LABS: Calcium 8.9 mg/dL (8.6-10.3); Potassium 4.4 mEq/L (3.5-5.1)
[2018-05-04 05:56] LABS: Basophils % 0.6 %; Eosinophils % 15.5 %; Immature Granulocytes % 2.3 % (0-4); Lymphocytes # 0.5 K/mcL (0.6-4.6); Lymphocytes % 8.1 %; Mean Corpuscular HGB Conc 31.1 g/dL (31.6-35.5); Mean Corpuscular Volume 96.6 fL (83.0-100.0); Mean Platelet Volume 10.6 fL (9.4-12.4); Monocytes # 0.5 K/mcL (0.0-1.3); Monocytes % 7.3 %; Platelet Count 139 K/mcL (140-400); Segmented Neutrophils % 66.2 %
[2018-05-04 05:57] LABS: Hemoglobin 8.7 g/dL (12.9-16.9); Neutrophils # 4.2 K/mcL (1.6-8.9)
[2018-05-04] MEDS ORDERED: *HR* HYDROcodone/Acet 5/325 mg TABLET PO PRN (07:23)
[2018-05-04] MEDS: Insulin LISPRO 300 UNITS/3 ML VIAL SQ SCH ×3 (07:36→16:57)
[2018-05-04] MEDS: Loratadine 10 MG TABLET PO SCH (07:48)
[2018-05-04] MEDS: Famotidine 20 MG TABLET PO SCH (07:48)
[2018-05-04] MEDS: Aspirin Enteric Coated 81 MG Tablet PO SCH (07:48)
[2018-05-04] MEDS ORDERED: *HR* FentaNYL (PF) 100 MCG/2 ML VIAL IVP ONE (09:19)
[2018-05-04] MEDS ORDERED: *HR* Midazolam HCl 2 MG/2 ML VIAL IVP ONE (09:19)
--- NOTE | 2018-05-04 09:22 | Pre-Sedation Evaluation ---
Pre-sedation evaluation - Pre-sedation checklist Procedure: Pacemaker Recent Vitals: Last Vital Signs Temp 98.3 F 05/04/18 06:49 Pulse 76 05/04/18 06:49 Resp 18 05/04/18 06:49 BP 113/59 05/04/18 06:49 Pulse Ox 96 05/04/18 06:49 H&P (including ROS) documented in medical record: No Previous reaction to sedatives/anesthetics: No Dietary Status: NPO after Midnight ASA Classification *see protocol: CLASS II-Mild systemic disease Plan of Care: Pt appropriate candidate for procedure/moderate/conscious sedation, Risks/benefits of procedure/sedation discussed w/ patient/family
--- NOTE | 2018-05-04 14:16 | Internal Med Progress Note ---
Hospitalist Progress Note - Encounter Date of Encounter: 05/04/18 - Exam Vitals: Temp Pulse Resp BP Pulse Ox 98.1 F 81 16 117/69 100 05/04/18 11:12 05/04/18 12:09 05/04/18 12:09 05/04/18 12:09 05/04/18 12:09 - Assessment and Plan (1) Renal mass Current Visit: Yes Status: Acute (2) Lumbar compression fracture Current Visit: Yes Status: Acute (3) Anemia Current Visit: Yes Status: Chronic (4) CAD (coronary artery disease) Current Visit: Yes Status: Chronic (5) Diabetes mellitus Current Visit: Yes Status: Chronic (6) HTN (hypertension) Current Visit: Yes Status: Chronic - Time Spent with Patient Total time spent is greater than 50% in coordination of care (as documented) at patient's floor/unit and/or counseling patient: Internal Medicine: Result - Labs CBC & Chem 7: 05/04/18 05:43 05/04/18 05:06 Labs: Short CBC 05/04/18 Range/Units 05:43 WBC 6.4 (4.3-11.1) K/mcL Hgb 8.7 L (12.9-16.9) g/dL Hct 28.0 L (37.5-50.1) % Plt Count 139 L (140-400) K/mcL Neutrophils # 4.2 (1.6-8.9) K/mcL BMP 05/04/18 05:06 Sodium 138 Potassium 4.4 Chloride 112 H Carbon Dioxide 19 L BUN 23 Creatinine 1.46 H Glucose 87 Calcium 8.9 - ABG Interpretation ABG results: PT/INR, D-dimer PT 11.1 Seconds (9.4-12.1) 05/03/18 04:16 - Impressions Impressions Bone Scan Nuclear Medicine 05/02/18 11:39 IMPRESSION: Suspected right tenth rib metastasis. No abnormal uptake at the L1 fracture site. D/ / 05/03/2018 10:52:33 Kel Jarvis MD / neeta Interpreting Provider: Kel Jarvis MD Abdomen Biopsy CT 03/26/19 00:00 IMPRESSION: Successful CT guided core biopsy right adrenal mass. D/ / Humberto John MD / Humberto John MD Interpreting Provider: Humberto John MD Consult Discharge Plan - Plan Referrals: NONE,PCP [Primary Care Provider] - ___ (2) Lumbar compression fracture Qualifiers: Encounter type: initial encounter Lumbar vertebra fracture level: L1 Fracture type: closed Qualified Code(s): S32.010A - Wedge compression fracture of first lumbar vertebra, initial encounter for closed fracture (3) Anemia Qualifiers: Anemia type: due to chronic kidney disease Chronic kidney disease stage: stage 3 (moderate) Qualified Code(s): N18.3 - Chronic kidney disease, stage 3 (moderate); D63.1 - Anemia in chronic kidney disease (4) CAD (coronary artery disease) Qualifiers: Coronary Disease-Associated Artery/Lesion type: [place] artery [place] vs. transplanted heart: [place] heart Associated angina: without angina Qualified Code(s): I25.10 - Atherosclerotic heart disease of [place] coronary artery without angina pectoris (5) Diabetes mellitus Qualifiers: Diabetes mellitus type: type 2 Diabetes mellitus alf insulin use: without alf use Diabetes mellitus complication status: with unspecified complications Qualified Code(s): E11.8 - Type 2 diabetes mellitus with unspecified complications (6) HTN (hypertension) Qualifiers: Hypertension type: essential hypertension Qualified Code(s): I10 - Essential (primary) hypertension
--- NOTE | 2018-05-04 14:19 | Discharge Summary ---
- NOTES TO OUTPATIENT PROVIDER Notes to Outpatient Provider: Patient with history of coronary artery disease status post CABG, heart block status post permanent pacemaker, COPD, diabetes, hypertension who was hospitalized here initially with confusion and multiple falls at home. He was noted to have a low blood sugar in the ER and then transferred over here. He was placed on intravenous dextrose infusion. He was also complaining of back pain and they did a CT of his spine which showed L1 compression fracture. The CT also revealed renal and adrenal masses which were further evaluated with a CT of abdomen and pelvis and also his chest. Patient was found to have right renal masses bilaterally concerning for synchronous primary tumors along with possible metastatic lesions to the adrenals, liver and lung. Oncology was consulted and they recommended a biopsy which was done today. Patient was evaluated by physical therapy and recommended placement to skilled rehabilitation. He will be set up for a follow-up appointment with oncology. For his L1 compression fracture, he was evaluated by orthopedics who recommended conservative management. Given his low blood sugars at home, I am decreasing his glipizide dosage to 5 mg daily. Orders not resulted at time of discharge: Pending orders 05/02/18 12:19 Folate RBC Routine Date of Encounter: 05/04/18 Time of Encounter: 14:16 - Discharge Diagnosis (1) Renal mass Priority: Primary Status: Acute (2) Lumbar compression fracture Priority: Secondary Status: Acute Qualifiers: Encounter type: initial encounter Lumbar vertebra fracture level: L1 Fracture type: closed Qualified Code(s): S32.010A - Wedge compression fracture of first lumbar vertebra, initial encounter for closed fracture (3) Anemia Priority: Secondary Status: Chronic Qualifiers: Anemia type: due to chronic kidney disease Chronic kidney disease stage: stage 3 (moderate) Qualified Code(s): N18.3 - Chronic kidney disease, stage 3 (moderate); D63.1 - Anemia in chronic kidney disease (4) CAD (coronary artery disease) Priority: Secondary Status: Chronic Qualifiers: Coronary Disease-Associated Artery/Lesion type: [place] artery [place] vs. transplanted heart: [place] heart Associated angina: without angina Qualified Code(s): I25.10 - Atherosclerotic heart disease of [place] coronary artery without angina pectoris (5) Diabetes mellitus Priority: Secondary Status: Chronic Qualifiers: Diabetes mellitus type: type 2 Diabetes mellitus terminal block assembler insulin use: without terminal block assembler use Diabetes mellitus complication status: with kidney complications Diabetes mellitus complication detail: with chronic kidney disease Chronic kidney disease stage: stage 3 (moderate) Qualified Code(s): E11.22 - Type 2 diabetes mellitus with diabetic chronic kidney disease; N18.3 - Chronic kidney disease, stage 3 (moderate) (6) HTN (hypertension) Priority: Secondary Status: Chronic Qualifiers: Hypertension type: essential hypertension Qualified Code(s): I10 - Essential (primary) hypertension Hospital course: Mr. Dawson is a 72 year old male Patient with history of coronary artery disease status post CABG, heart block status post permanent pacemaker, COPD, diabetes, hypertension who was hospitalized here initially with confusion and multiple f alls at home. He was noted to have a low blood sugar in the ER and then transferred over here. He was placed on intravenous dextrose infusion. He was also complaining of back pain and they did a CT of his spine which showed L1 compression fracture. The CT also revealed renal and adrenal masses which were further evaluated with a CT of abdomen and pelvis and also his chest. Patient was found to have right renal masses bilaterally concerning for synchronous primary tumors along with possible metastatic lesions to the adrenals, liver and lung. Oncology was consulted and they recommended a biopsy which was done today. Patient was evaluated by physical therapy and recommended placement to skilled rehabilitation. He will be set up for a follow-up appointment with oncology. For his L1 compression fracture, he was evaluated by orthopedics who recommended conservative management. Given his low blood sugars at home, I am decreasing his glipizide dosage to 5 mg daily. He will be discharged from the hospital once he is accepted at a nursing facility. Discharge discussed with: patient, nurse - Time Spent with Patient Total time spent providing and/or coordinating discharge services: Time spent: Greater than 30 minutes (35 min) - Discharge Medications Prescriptions: New GlipiZIDE [Glipizide Xl] 5 mg PO DAILY #30 tab.er.24 Tramadol HCl [Ultram] 50 mg PO BID PRN 7 Days #14 tab PRN Reason: Moderte pain Ferrous Sulfate 325 mg PO BIDWM #60 tablet Continue Carvedilol [Coreg] 3.125 mg PO BIDWM #60 tablet Fenofibrate Nanocrystallized [Fenofibrate] 160 mg PO DAILY Simvastatin [Zocor] 40 mg PO HS Enalapril Maleate [Vasotec] 20 mg PO DAILY Cetirizine HCl [Zyrtec] 10 mg PO DAILY Aspirin [Lo-Dose Aspirin EC] 81 mg PO DAILY Montelukast [Singulair] 10 mg PO DAILY [place]-3 Fatty Acids [Fish Oil] 300 mg PO DAILY Discontinued glipiZIDE [Glipizide ER] 10 mg PO DAILY hydroCHLOROthiazide [Hydrochlorothiazide] 25 mg PO DAILY Home Medications: Aspirin [Lo-Dose Aspirin EC] 81 mg PO DAILY 04/03/17 [History] Cetirizine HCl [Zyrtec] 10 mg PO DAILY 04/03/17 [History] Enalapril Maleate [Vasotec] 20 mg PO DAILY 04/03/17 [History] Simvastatin [Zocor] 40 mg PO HS 04/03/17 [History] Carvedilol [Coreg] 3.125 mg PO BIDWM #60 tablet 04/07/17 [Rx] Montelukast [Singulair] 10 mg PO DAILY 04/24/18 [History] [place]-3 Fatty Acids [Fish Oil] 300 mg PO DAILY 04/24/18 [History] Fenofibrate Nanocrystallized [Fenofibrate] 160 mg PO DAILY 05/03/18 [History] Ferrous Sulfate 325 mg PO BIDWM #60 tablet 05/04/18 [Rx] GlipiZIDE [Glipizide Xl] 5 mg PO DAILY #30 tab.er.24 05/04/18 [Rx] Tramadol HCl [Ultram] 50 mg PO BID PRN 7 Days #14 tab 05/04/18 [Rx] Allergies/Adverse Reactions: Allergy/AdvReac Type Severity Reaction Status Date / Time codeine Allergy See Verified 05/02/18 04:35 Comments Date of admission: 05/02/18 09:17 Primary care physician: PCP NONE Consults: 05/02/18 10:12 Consult to Occupational Therapy [CONS] Routine Comment: Evaluate, develop and implement POC Reason for Consult: compression fx Does patient have active BEDREST order?: No Is patient medically & hemodynamically stable?: Yes Consult to Physical Therapy [CONS] Routine Comment: Evaluate, develop and implement POC Reason for Consult: compression fx Does patient have active BEDREST order?: No Is patient medically & hemodynamically stable?: Yes Consult to Fundraising Director [CONS] Routine Reason for SW Consult: compression fracture 05/02/18 10:57 Consult to Orthopedic Surgery [CONS] Routine Consulting Provider: Duke Zhang Reason for Consult: vertebral compression fracture Call Completed: Yes 05/02/18 10:58 Consult to Oncology [CONS] Routine Consulting Provider: On[facility] Reason for Consult: new pulm nodules, R renal mass, R adrenal mass Call Completed: No 05/03/18 11:20 Consult to Interventional Radiology [CONS] Routine Consulting Provider: Radiology Interventional [facility] Reason for Consult: CT-guided biopsy of the left adrenal mass (or left retroperitoneal lymph node) Time Notified: 11:30 Call Completed: Yes Discharging clinician: Odalis Kahn Anticipated date of discharge: 05/04/18 - Constitutional Vitals: Temp Pulse Resp BP Pulse Ox 98.1 F 81 16 117/69 100 05/04/18 11:12 05/04/18 12:09 05/04/18 12:09 05/04/18 12:09 05/04/18 12:09 Exam: General: Patient is alert, no acute distress, oriented x 3 Respiratory: Good respiratory effort. Normal breath sounds. No wheezing or crackles. Cardiovascular: Regular rate and rhythm. s1 and s2 normal No clicks, rubs, gallops, or murmurs. No pedal edema Abdomen: Abdomen is soft, nontender. Bowel sounds are present Musculoskeletal: Spontaneously moving all extremities - Patient Status Disposition: Transfer SNF Condition: Fair Functional capacity at discharge: uses cane/walker Overall status at discharge: patient is progressing back to baseline - Discharge Instructions Instructions: Glipizide (By mouth), Tramadol (By mouth), Anemia (GEN) Follow Up With: Bret Wiseman MD [Partnered Physician] - 05/17/18 1:15 pm (please follow up as schedule...) NONE,PCP [Primary Care Provider] - (in 1-2 weeks) - Diet and Activity Activity: increase activity as tolerated Diet: advance to your usual diet, diabetic diet, low fat, low cholesterol, low salt diet
[2018-05-05] MEDS: Ipratropium/Albuterol Neb 3 ML IH SCH ×5 (00:10→16:27)
[2018-05-05] MEDS: *HR* Heparin 5,000 UNIT/ML VIAL SQ SCH ×2 (00:40→08:29)
[2018-05-05] MEDS: Insulin LISPRO 300 UNITS/3 ML VIAL SQ SCH ×2 (08:24→12:17)
[2018-05-05] MEDS: Aspirin Enteric Coated 81 MG Tablet PO SCH (08:28)
[2018-05-05] MEDS: Famotidine 20 MG TABLET PO SCH (08:28)
[2018-05-05] MEDS: Loratadine 10 MG TABLET PO SCH (08:29)
[2018-05-05 11:18] VITALS: BP 125/54
--- NOTE | 2018-05-05 11:46 | Internal Med Progress Note ---
Hospitalist Progress Note - Encounter Date of Encounter: 05/05/18 Time of Encounter: 09:00 - Subjective Interval History: Patient denies dizziness or lightheaded. Denies nausea or vomiting. No fever. Waiting for placement. - Exam Vitals: Temp Pulse Resp BP Pulse Ox 97.9 F 81 16 125/54 98 05/05/18 11:17 05/05/18 11:17 05/05/18 11:17 05/05/18 11:17 05/05/18 11:17 Exam: Pt is AAO x 3, in NAD HEENT: NC/AT, PERRL Neck: Supple, no JVD, no LAD Lungs: CTA b/l Heart: S1S2, RRR Abd: Soft, nontender, BS present Ext: ROM wnl, no pedal edema Neuro: No focal deficit - Assessment and Plan (1) Diabetes mellitus Current Visit: Yes Status: Chronic Assessment and Plan: Patient presented with fall and hypoglycemia. Continue low-dose sliding scale with meals only. Decreased glipizide dose upon discharge. (2) Anemia Current Visit: Yes Status: Chronic Assessment and Plan: Hemoglobin 8.6. Stable at baseline. Likely due to long-standing chronic kidney disease. Mild iron deficiency. Placed patient on iron supplements. (3) HTN (hypertension) Current Visit: Yes Status: Chronic Assessment and Plan: Continue carvedilol. Blood pressure is well controlled at this time. (4) CAD (coronary artery disease) Current Visit: Yes Status: Chronic Assessment and Plan: Continue aspirin, beta jackie and statin. no chest pain at this time (5) Lumbar compression fracture Current Visit: Yes Status: Acute Assessment and Plan: Evaluated by orthopedics. Recommend conservative management. (6) Renal mass Current Visit: Yes Status: Acute Assessment and Plan: Patient has bilateral renal masses concerning for malignancy. Possible metastasis to lung and liver and bilateral adrenal glands and the right 10th rib. Had biopsy done, result is pending. Continue follow-up with oncology as o utpatient. DVT Prophylaxis: Heparin sc - Time Spent with Patient Total time spent is greater than 50% in coordination of care (as documented) at patient's floor/unit and/or counseling patient: 30 minutes 25 - 35 minutes Plan of Care Discussed with: patient Internal Medicine: Result - Labs CBC & Chem 7: 05/04/18 05:43 05/04/18 05:06 - ABG Interpretation ABG results: PT/INR, D-dimer PT 11.1 Seconds (9.4-12.1) 05/03/18 04:16 - Impressions Impressions Abdomen Biopsy CT 05/04/18 00:00 IMPRESSION: Successful CT guided core biopsy right adrenal mass. D/ / Humberto John MD / Humberto John MD Interpreting Provider: Humberto John MD Consult Discharge Plan - Plan Instructions: Glipizide (By mouth), Tramadol (By mouth), Anemia (GEN) Referrals: Bret Wiseman MD [Partnered Physician] - 05/17/18 1:15 pm (please follow up as schedule...) Prescriptions: Ferrous Sulfate 325 mg PO BIDWM #60 tablet GlipiZIDE [Glipizide Xl] 5 mg PO DAILY #30 tab.er.24 Tramadol HCl [Ultram] 50 mg PO BID PRN 7 Days #14 tab PRN Reason: Moderte pain (1) Diabetes mellitus Qualifiers: Diabetes mellitus type: type 2 Diabetes mellitus fpc insulin use: without ad terminal makeup operator use Diabetes mellitus complication status: with kidney complications Diabetes mellitus complication detail: with chronic kidney disease Chronic kidney disease stage: stage 3 (moderate) Qualified Code(s): E11.22 - Type 2 diabetes mellitus with diabetic chronic kidney disease; N18.3 - Chronic kidney disease, stage 3 (moderate) (2) Anemia Qualifiers: Anemia type: due to chronic kidney disease Chronic kidney disease stage: stage 3 (moderate) Qualified Code(s): N18.3 - Chronic kidney disease, stage 3 (moderate); D63.1 - Anemia in chronic kidney disease (3) HTN (hypertension) Qualifiers: Hypertension type: essential hypertension Qualified Code(s): I10 - Essential (primary) hypertension (4) CAD (coronary artery disease) Qualifiers: Coronary Disease-Associated Artery/Lesion type: [place] artery [place] vs. transplanted heart: [place] heart Associated angina: without angina Qualified Code(s): I25.10 - Atherosclerotic heart disease of [place] coronary artery without angina pectoris (5) Lumbar compression fracture Qualifiers: Encounter type: initial encounter Lumbar vertebra fracture level: L1 Fracture type: closed Qualified Code(s): S32.010A - [place] compression fracture of first lumbar vertebra, initial encounter for closed fracture
--- NOTE | 2018-05-05 15:09 | Event Note ---
Date of Encounter: 05/05/18 Time of Encounter: 14:00 Pt refuse to be discharged to rehab. He refused home health as well. He understand he has high risk of fall again at home but still refuse. His is at bedside. Will d/c him home, prescription of glipizide XL 2.5 mg po daily and new glucometer given pt. Pt was told to f/u with oncology as outpatient for renal mass.
[2018-05-06 10:52] LABS: Hematocrit RBC Folate 37.4 %
== END 2018-05-05 16:41 | DRG 687 ==
LOC: 2ANU 09:17 → SUATTDRO 09:17
PROVIDERS: ADMIT Internal Medicine; ATTEND Internal Medicine

== ENCOUNTER 2018-06-23 19:44 | Inpatient (IN) ==
[2018-06-23] MEDS ORDERED: Dextrose Gel 15 GM/37.5 ML TUBE PO PRN ×2 (22:12)
[2018-06-23] MEDS ORDERED: D5% in Water 1,000 ML IVC PRN (22:12)
[2018-06-23] MEDS ORDERED: *HR* Dextrose 50 % in Water (Syg) 50 ML SYRINGE IVP PRN (22:12)
--- NOTE | 2018-06-23 22:14 | Internal Med History&Physical ---
<Marlo Espinal S - Last Filed: 06/24/18 03:30> Date of Encounter: 06/24/18 Time of Encounter: 23:22 Internal Medicine - H&P: HPI Chief complaint: SOB and chest pain Admitted From: Hospital to Hospital Transfer Plans for Post Hospital Care: Home History of present illness: Mr. Dawson is a 72 year old male with PMH of COPD, CAD, CHF, CABG, HTN, HLD, and metastatic cancer. He is here as a [place] transfer and initially went to the hospital because he was having chest pain. It started today and happened in the car, unrelieved by rest. He waited in the car while his went into [facility] and his CP didn't get any better. He began having increasing SOB and states he doesn't ever wear oxygen at home but had to use it. He was given some water to sip on but threw it all up. He states that his CP radiated down into his belly, to his arm and into his back. He states it was a sharp, stabbing pain and rated it as a 10/10. He had associated chills, diaphoresis and nausea. He feels as though he is very congested as well and couldn't take a deep breath. He said it was just too hard to breathe. Denies pleuritic chest pain. In the ER at [place], he was found to have an elevated D-dimer. He was also found to have elevated creatinine, which pre-cluded him from getting CT angiogram of the chest. Troponin at [place] was negative. He was started on a heparin drip. He was transferred to [facility] for further workup and evaluation. Past Med Surg Social Fam HX - Past Medical History Medical history: coronary artery disease, diabetes, hyperlipidemia, hypertension, other Additional medical history: CAROTID STENOSIS Psychiatric history: anxiety, depression - Past Surgical History Surgical History: angioplasty/stent, coronary bypass (CABG) (1998) - Social History Smoking Status: Former smoker Smokeless Tobacco Status: No Alcohol use: none Drug use: none - Family History Mother Living Status: Hx Family Cardiac Disorders: Yes Father Living Status: Hx Family Cardiac Disorders: No Internal Medicine - H&P: Meds Cetirizine HCl [Zyrtec] 10 mg PO DAILY 04/03/17 [History] Enalapril Maleate [Vasotec] 20 mg PO DAILY 04/03/17 [History] Simvastatin [Zocor] 40 mg PO HS 04/03/17 [History] Carvedilol [Coreg] 3.125 mg PO BIDWM #60 tablet 04/07/17 [Rx] Fenofibrate Nanocrystallized [Fenofibrate] 160 mg PO DAILY 05/03/18 [History] Alcohol Antiseptic Pads [Alcohol Pads] 1 each TP ACHS 100 Days #400 med..pad 05/05/18 [Rx] Blood Sugar Diagnostic [Glucose Test Strip] 1 each MC ACHS 100 Days #400 strip 05/05/18 [Rx] Blood-Glucose Meter [Blood Glucose Monitoring] 1 each ACHS #1 each 05/05/18 [Rx] Guaifenesin [Mucinex] 400 mg PO DAILY 06/04/18 [History] HYDROcodone/Acet 5/325 mg [[place] 5-325 mg] 1 tab PO Q8H PRN 06/04/18 [History] Levalbuterol HCl [Xopenex] 1.25 mg IH Q6HR PRN #10 vial.neb 06/04/18 [Rx] Ondansetron ODT [Zofran ODT] 4 mg SL Q6HR #20 tab.rapdis 06/04/18 [Rx] hydroCHLOROthiazide [Hydrochlorothiazide] 25 mg PO DAILY 06/04/18 [History] Axitinib [Inlyta] 5 mg PO BID #60 tablet 06/08/18 [Rx] MethylPREDNISolone [MethylPREDNISolone Dose Pack] 4 mg PO AD #21 tab 06/14/18 [Rx] HydrOXYzine 10 mg PO TID PRN #30 tablet 06/16/18 [Rx] Allergy/AdvReac Type Severity Reaction Status Date / Time codeine Allergy See Verified 06/04/18 09:37 Comments All Systems PM: A 10-system review of systems was performed and is negative for pertinent findings except as documented above in the HPI. - Constitutional Constitutional: chills, fatigue, fever(s) - EENT Eyes: no blurry vision, no change in vision Ears: no tinnitus - Cardiovascular Cardiovascular ROS IM: chest pain, dyspnea, dyspnea on exertion, palpitations - Respiratory Respiratory: cough, dyspnea, dyspnea on exertion, chest congestion, no hemoptysis - Gastrointestinal Gastrointestinal: no abdominal pain, no diarrhea, no nausea, no vomiting - Genitourinary Genitourinary ROS male: no difficulty urinating, no dysuria - Musculoskeletal Musculoskeletal ROS IM: back pain, stiffness, no numbness, no tingling - Integumentary Integumentary IM: no new lesions, no skin ulcer - Neurological Neurological ROS: weakness, no dizziness, no numbness, no tingling - Psychiatric Psychiatric: anxiety, depression - Endocrine Endocrine IM: fatigue - Hematologic/Lymphatic Hematologic/Lymphatic: no easy bleeding, no easy bruising - Constitutional Vitals: Temp Pulse Resp BP Pulse Ox 97.6 F 74 18 117/68 98 06/23/18 22:00 06/23/18 22:00 06/23/18 22:00 06/23/18 22:00 06/23/18 22:00 General appearance: Present: cooperative, A&O X 3, no acute distress Exam: general - aox3, nad, laying in bed comfortable heent - ncat, dry MM, no scleral icterus neck - supple, trachea midline cardio - rrr s1s2 cta lungs - decreased breath sounds, scattered wheezing abd - soft, nontender, nondistended, no peritoneal signs, no rebound or guarding extremities - strength and sensation intact, moves all extremities equally and without difficult skin - extremely dry skin, intact, warm neuro - no fnd, cn2-12 intact psych - anxious appearing elderly male Internal Med - H&P Results - Labs CBC & Chem 7: 06/24/18 00:38 06/24/18 00:38 - Assessment and Plan (1) Suspected pulmonary embolism Current Visit: Yes Status: Acute Assessment and plan: Pt is a [place] transfer for suspected PE - couldn't obtain CT angiogram due to kidney fxn - pt is a high risk for PE in the setting of metastatic adenocarcinoma without a known primary Last creatinine 2.46, baseline appears to be around 1.5-1.6 Started on heparin drip at [place] XR chest ordered at [place], report not given EKG showed old interoapical infarct, RBBB, inverted T waves in v3,4,5 D-dimer 2388 Troponin (-) x1 Plan: - VQ scan for AM - DVT study pending of BL LE - RUE US pending, R>L UE swelling - continue heparin drip - heme-onc consult - PTOT consulted - FEN: ADA diet - DVT prophylaxis: heparin drip - dispo: pt to be admitted for anticoagulation, heme-onc recommendations would benefit from goals of care discussion (2) Metastatic cancer Current Visit: Yes Status: Acute Assessment and plan: CT scan from 04/2018: - 5.9 x 5.2 cm right renal mass compatible with primary renal malignancy. There is suspected tumor thrombus within a peripheral segmental right renal vein. - 3.2 x 2.0 cm left renal mass protruding into the renal sinus, possibly representing a synchronous primary malignancy. - Indeterminate soft tissue surrounding the left UPJ without obstruction. Indeterminate hyperdense left lower pole renal lesion - Pulmonary, hepatic, and bilateral adrenal metastatic disease - Metastatic retroperitoneal and celiac adenopathy 05/04 biopsy: right adrenal CT guided core bx showed metastatic carcinoma - consistent with metastatic clear cell RCC The pt sees heme-onc as an outpatient. Will consult while he is here. Last heme-onc progress note: Current treatment: 1. Axitinib with pembrolizumab (Cycle 1 pembrolizumab 06/04/18. Axitinib financial assistance ongoing) Treatment intent: Palliative (3) Acute kidney injury superimposed on CKD Current Visit: Yes Status: Acute Assessment and plan: Pt with hx of CKD stage 3. Creatinine on admission 2.46 increased to 2.52 Plan: - strict I&O - retroperitoneal US pending, r/o obstruction - urine studies pending - avoid nephrotoxins and renally dose rx when applicable - pt did receieve a 1L bolus at [place], did not give any IVF while here 2/2 hx of HFrEF (4) Goals of care, counseling/discussion Current Visit: Yes Status: Acute Assessment and plan: Pt wishes to have formal discussion with at bedside tomorrow. He does wish to be a DNR-DNI-CCA but for now asks to be a FULL CODE until decision can be made with . (5) Shortness of breath Current Visit: Yes Status: Acute Assessment and plan: Secondary to suspected PE. Wean oxygen as tolerated. (6) History of DVT (deep vein thrombosis) Current Visit: No Status: Chronic Assessment and plan: Pt reports hx of DVT in carotids, states that he is not on AC for this. (7) Diabetes mellitus Current Visit: No Status: Chronic Assessment and plan: T2DM, chronic. ADA diet. Accuchecks. LDSS. Qualifiers: Diabetes mellitus type: type 2 Diabetes mellitus halfway insulin use: without rug hooker use Diabetes mellitus complication status: with kidney complications Diabetes mellitus complication detail: with chronic kidney disease Chronic kidney disease stage: stage 3 (moderate) Qualified Code(s): E11.22 - Type 2 diabetes mellitus with diabetic chronic kidney disease; N18.3 - Chronic kidney disease, stage 3 (moderate) (8) Anemia Current Visit: No Status: Chronic Assessment and plan: Chronic anemia at baseline. Hemoglobin 7.8 on admission to [facility], baseline around 8.5-9, will get H&H q6hr. Type&screen. Qualifiers: Anemia type: due to chronic kidney disease Chronic kidney disease stage: stage 3 (moderate) Qualified Code(s): N18.3 - Chronic kidney disease, stage 3 (moderate); D63.1 - Anemia in chronic kidney disease (9) HTN (hypertension) Current Visit: No Status: Chronic Assessment and plan: chronic, con't home meds once reconciled. Qualifiers: Hypertension type: essential hypertension Qualified Code(s): I10 - Essential (primary) hypertension (10) HLD (hyperlipidemia) Current Visit: No Status: Chronic Assessment and plan: chronic, on fenofibrate. Con't once reconciled. Qualifiers: Hyperlipidemia type: mixed hyperlipidemia Qualified Code(s): E78.2 - Mixed hyperlipidemia (11) CAD (coronary artery disease) Current Visit: No Status: Chronic Assessment and plan: Pt has hx of CAD on coreg, zocor, vasotec. Says allergic to ASA. ECHO from 04/2018 LVEF 35-40%. Moderate left ventricular diastolic dysfunction. Normal right ventricular structure and function. Moderate mitral regurgitation. Mild tricuspid regurgitation. Mild pulmonary hypertension. 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 Qualifiers: Coronary Disease-Associated Artery/Lesion type: torres martinez artery [place] vs. transplanted heart: torres martinez heart Associated angina: without angina Qualified Code(s): I25.10 - Atherosclerotic heart disease of torres martinez coronary artery without angina pectoris (12) DVT prophylaxis Current Visit: No Status: Acute Assessment and plan: heparin drip (13) Acute respiratory failure Current Visit: Yes Status: Acute Assessment and plan: NOT on home oxygen. Requiring 2L currently. Qualifiers: Respiratory failure complication: hypoxia Qualified Code(s): J96.01 - Acute respiratory failure with hypoxia (14) Carotid stenosis Current Visit: No Status: Chronic Assessment and plan: Pt notes that he has had visual changes in the past and was being evaluated by cardiology for this. Report from 03/2017 The right internal carotid artery has a 40-59% stenosis. The left internal carotid artery has a 40-59% stenosis. Recommended 1 yr follow up. Ordered duplex US pending. Qualifiers: Laterality: bilateral Qualified Code(s): I65.23 - Occlusion and stenosis of bilateral carotid arteries - Time Spent With Patient Total time spent is greater than 50% in coordination of care (as documented) at patient's floor/unit and/or counseling patient: 25 - 35 minutes <Tommie Pierre - Last Filed: 06/24/18 04:39> Date of Encounter: 06/24/18 Time of Encounter: 02:30 - Constitutional Constitutional: chills, fever(s) - EENT Eyes: no change in vision Ears: no ear pain Nose, mouth and throat: no sore throat - Cardiovascular Cardiovascular ROS IM: chest pain, diaphoresis, dyspnea, dyspnea on exertion, palpitations, no orthopnea, no paroxysmal nocturnal dyspnea, no syncope - Respiratory Respiratory: cough, chest congestion, no change in phlegm color - Gastrointestinal Gastrointestinal: no diarrhea, no hematemesis, no hematochezia, no melena, no vomiting - Genitourinary Genitourinary ROS male: no dysuria, no hematuria - Musculoskeletal Musculoskeletal ROS IM: back pain, no arthralgias - Integumentary Integumentary IM: no rash, no jaundice - Psychiatric Psychiatric: anxiety - Allergic/Immunologic Allergic/Immunologic: no GI upset with certain foods - Constitutional Vitals: Temp Pulse Resp BP Pulse Ox 97.6 F 77 18 97/43 100 06/24/18 03:29 06/24/18 03:29 06/24/18 03:29 06/24/18 03:29 06/24/18 03:29 General appearance: Present: cooperative, A&O X 3, pleasant, no acute distress - Head Head exam: Present: normal inspection - Eye Eye exam: Present: PERRL. Absent: scleral icterus - ENT ENT exam: Present: mucous membranes dry, normal exam, normal oropharynx - Neck Neck exam general surgery: Present: full ROM, supple, trachea midline. Absent: tenderness - Respiratory Respiratory exam: Present: decreased breath sounds, prolonged expiratory phase, respiratory distress, rhonchi, wheezes. Absent: chest wall tenderness, rales - Cardiovascular Cardiovascular exam: Present: distant heart sounds, +S1, +S2. Absent: diastolic murmur, systolic murmur - GI/Abdominal GI/Abdominal exam: Present: normal bowel sounds, soft. Absent: hepatomegaly, mass, splenomegaly, tenderness - Extremities Exam Extremities exam: Present: calf tenderness, pedal edema, warm, radial pulses palpable and symmetrical. Absent: tenderness - Back Exam Back exam: Absent: CVA tenderness (L), CVA tenderness (R) - Neurological Exam Neurological exam: Present: alert, oriented X3, no focal deficits, strengths equal and symetr throughout - Psychiatric Psychiatric exam: Present: normal affect, normal mood - Skin Skin exam: Present: dry, intact, warm Internal Med - H&P Results - Labs CBC & Chem 7: 06/24/18 00:38 06/24/18 00:38 Labs: Short CBC 06/23/18 06/24/18 Range/Units 22:42 00:38 WBC 5.2 5.0 (4.3-11.1) K/mcL Hgb 7.8 L 8.1 L (12.9-16.9) g/dL Hct 26.0 L 26.5 L (37.5-50.1) % Plt Count 145 139 L (140-400) K/mcL BMP 06/23/18 06/24/18 22:42 00:38 Sodium 139 140 Potassium 5.0 4.9 Chloride 112 H 111 H Carbon Dioxide 24 25 BUN 58 H 58 H Creatinine 2.46 H 2.52 H Glucose 85 102 Calcium 8.4 L 8.5 L Cardiac Enzymes 06/23/18 Range/Units 22:42 Troponin I < 0.03 (< 0.04) ng/mL - Assessment and Plan (1) Diabetes mellitus Current Visit: No Status: Chronic Qualifiers: Diabetes mellitus type: type 2 Diabetes mellitus halfway insulin use: without rug hooker use Diabetes mellitus complication status: with kidney complications Diabetes mellitus complication detail: with chronic kidney disease Chronic kidney disease stage: stage 3 (moderate) Qualified Code(s): E11.22 - Type 2 diabetes mellitus with diabetic chronic kidney disease; N18.3 - Chronic kidney disease, stage 3 (moderate) (2) Anemia Current Visit: No Status: Chronic Qualifiers: Anemia type: due to chronic kidney disease Chronic kidney disease stage: stage 3 (moderate) Qualified Code(s): N18.3 - Chronic kidney disease, stage 3 (moderate); D63.1 - Anemia in chronic kidney disease (3) HTN (hypertension) Current Visit: No Status: Chronic Qualifiers: Hypertension type: essential hypertension Qualified Code(s): I10 - Essential (primary) hypertension (4) HLD (hyperlipidemia) Current Visit: No Status: Chronic Qualifiers: Hyperlipidemia type: mixed hyperlipidemia Qualified Code(s): E78.2 - Mixed hyperlipidemia (5) CAD (coronary artery disease) Current Visit: No Status: Chronic Qualifiers: Coronary Disease-Associated Artery/Lesion type: torres martinez artery [place] vs. transplanted heart: torres martinez heart Associated angina: without angina Qualified Code(s): I25.10 - Atherosclerotic heart disease of torres martinez coronary artery without angina pectoris (6) DVT prophylaxis Current Visit: No Status: Acute (7) Goals of care, counseling/discussion Current Visit: Yes Status: Acute (8) Shortness of breath Current Visit: Yes Status: Acute (9) History of DVT (deep vein thrombosis) Current Visit: No Status: Chronic (10) Metastatic cancer Current Visit: Yes Status: Acute (11) Suspected pulmonary embolism Current Visit: Yes Status: Acute (12) Acute respiratory failure Current Visit: Yes Status: Acute Qualifiers: Respiratory failure complication: hypoxia Qualified Code(s): J96.01 - Acute respiratory failure with hypoxia (13) Acute kidney injury superimposed on CKD Current Visit: Yes Status: Acute (14) Carotid stenosis Current Visit: No Status: Chronic Qualifiers: Laterality: bilateral Qualified Code(s): I65.23 - Occlusion and stenosis of bilateral carotid arteries - Time Spent With Patient Total time spent is greater than 50% in coordination of care (as documented) at patient's floor/unit and/or counseling patient: - Attending Attestation I discussed the patient SOBOBA, past medical history, review of systems, lab data, imaging data, and exam findings with Dr. Espinal. We reviewed the records from [facility] ER. I then saw and examined patient independently as well. Patient has sudden onset chest pain the setting of metastatic adenocarcinoma. He has markedly elevated d-dimer, which can be secondary to multiple disease processes. However, in the above setting, I am highly suspicious of pulmonary embolism. Unfortunately, we cannot proceed with CTA of the chest due to his kidney disease. Heparin was started empirically at [place] and we will continue that for now. We will proceed with workup including VQ scan, Dopplers of his legs, and echocardiogram as well. We will monitor his blood counts. If he has any evidence of bleeding, heparin will need to be stopped. However, upon further review, he is chronically anemic and likely secondary to malignancy/chronic disease. I agree with the plan of care as detailed above by Dr. Espinal otherwise. Other than my comments above and documented findings, I agree with Dr. Espinal's assessment and plan.
[2018-06-23] MEDS: Insulin LISPRO 300 UNITS/3 ML VIAL SQ SCH (22:51)
[2018-06-23 23:09] LABS: Hemoglobin 7.8 g/dL (12.9-16.9); Immature Platelets 2.1 % (1.1-6.1); Mean Corpuscular Hemoglobin 29.3 pg (28.0-33.3); Mean Corpuscular Volume 97.7 fL (83.0-100.0); Red Blood Count 2.66 M/mcL (4.19-5.50); Red Cell Distribution Width 14.8 % (11.5-14.5)
[2018-06-23 23:15] LABS: Heparin anti-factor XA UFH 0.31 IU/mL (0.30-0.70)
[2018-06-23 23:16] LABS: Prothrombin Time 11.7 Seconds (9.4-12.1)
[2018-06-23] MEDS ORDERED: Naloxone 0.4 MG/ML INJ IVP PRN (23:20)
[2018-06-23 23:28] LABS: Calcium 8.4 mg/dL (8.6-10.3)
[2018-06-23] MEDS: Heparin 25,000 UNIT/250 ML D5W 25,000 UNIT/250 ML IV.SOLN IVC SCH (23:55)
[2018-06-24 01:04] LABS: VBG Ionized Calcium 1.04 mmol/L (1.15-1.35)
[2018-06-24 01:09] LABS: Hematocrit 26.5 % (37.5-50.1); Hemoglobin 8.1 g/dL (12.9-16.9); Immature Platelets 2.1 % (1.1-6.1); Mean Corpuscular HGB Conc 30.6 g/dL (31.6-35.5); Mean Corpuscular Hemoglobin 30.1 pg (28.0-33.3); Mean Corpuscular Volume 98.5 fL (83.0-100.0); Mean Platelet Volume 10.7 fL (9.4-12.4); Red Blood Count 2.69 M/mcL (4.19-5.50); Red Cell Distribution Width 14.8 % (11.5-14.5)
[2018-06-24 01:19] LABS: Calcium 8.5 mg/dL (8.6-10.3); Potassium 4.9 mEq/L (3.5-5.1)
[2018-06-24] MEDS ORDERED: *HR* Heparin 5,000 UNIT/ML VIAL IVP PRN (08:19)
[2018-06-24] MEDS: Insulin LISPRO 300 UNITS/3 ML VIAL SQ SCH ×4 (08:37→21:08)
[2018-06-24] MEDS: *HR* Heparin 5,000 UNIT/ML VIAL IVP PRN ×2 (09:02→17:41)
[2018-06-24] MEDS: 0.9 % Sodium Chloride 1,000 ML IVC SCH (09:03)
[2018-06-24] MEDS: Ipratropium/Albuterol Neb 3 ML IH SCH ×4 (11:38→21:36)
--- NOTE | 2018-06-24 13:24 | Oncology Inp Consult Note ---
<Aimee Siddiqui L - Last Filed: 06/24/18 17:41> Date of Encounter: 06/24/18 Time of Encounter: 15:14 Assessment and Plan (1) Renal cell carcinoma Status: Acute Assessment and plan: Metastatic, poor risk, clear cell renal cell carcinoma arising from the right kidney initially diagnosed 05/04/2018. S/P cycle #1 pembrolizumab immunotherapy (Axitinib not given yet as combination, as financial assistance is ongoing for the medication, planning for resolution soon) on 06/04/2018. Plan: Continue current treatment regimen as outpatient Qualifiers: Qualified Code(s): C64.9 - Malignant neoplasm of unspecified kidney, except renal pelvis (2) Shortness of breath Status: Acute Assessment and plan: VQ scan pending after adding in order for CXR for comparison If unrevealing, consider CT chest/abdomen/pelvis wo contrast Venous doppler BLE negative Currently on heparin gtt (3) Pruritus Status: Acute Assessment and plan: Chronic, not controlled with hydroxyzine Etiology not clear Plan: No evidence of abnormal LFTs Consider Neurontin - Data of Consult Requesting Physician: Tommie Pierre MD Primary Care Provider: PCP NONE - Consult Narrative Reason for consult: clear cell renal cell carcinoma History of present illness: Mr. Dawson is a 72 year old male with metastatic poor risk clear cell renal cell carcinoma arising from the right kidney initially diagnosed 05/04/2018. He presented with extensive metastatic disease involving bilateral kidneys, adrenal glands, liver as well as lung. Bone scan was without evidence of bony metasta ses. He is s/p cycle #1 pembrolizumab immunotherapy (Axitinib not given yet as combination, as financial assistance is ongoing for the medication, planning for resolution soon) on 06/04/2018. At this visit, he had reported exertional SOB which was thought to be secondary to anemia. Oxygen saturations in office were normal in the upper 90's during activity, his duonebs were changed to xopenex. He presented to [facility] ER for continued, worsening SOB, abd/chest pain. He was noted to have an elevated D Dimer and SHIVAM. Troponin at [place] was negative. He was started on a heparin drip for high suspicion of PE and transferred to [facility]. VQ scan here shows no large areas of mismatch however, study is limited due to no CXR available for comparison. Past Med Surg Social Fam HX - Past Medical History Medical history: coronary artery disease, diabetes, hyperlipidemia, hypertension, other Additional medical history: CAROTID STENOSIS Psychiatric history: anxiety, depression - Past Surgical History Surgical History: angioplasty/stent, coronary bypass (CABG) - Social History Smoking Status: Former smoker Smokeless Tobacco Status: No Alcohol use: none Drug use: none - Family History Mother Living Status: Hx Family Cardiac Disorders: Yes Father Living Status: Hx Family Cardiac Disorders: No Medications and Allergies Cetirizine HCl [Zyrtec] 10 mg PO DAILY 04/03/17 [History] Enalapril Maleate [Vasotec] 20 mg PO DAILY 04/03/17 [History] Simvastatin [Zocor] 40 mg PO HS 04/03/17 [History] Carvedilol [Coreg] 3.125 mg PO BIDWM #60 tablet 04/07/17 [Rx] Fenofibrate Nanocrystallized [Fenofibrate] 160 mg PO DAILY 05/03/18 [History] Guaifenesin [Mucinex] 400 mg PO DAILY 06/04/18 [History] HYDROcodone/Acet 5/325 mg [[place] 5-325 mg] 1 tab PO Q8H PRN 06/04/18 [History] Levalbuterol HCl [Xopenex] 1.25 mg IH Q6HR PRN #10 vial.neb 06/04/18 [Rx] Ondansetron ODT [Zofran ODT] 4 mg SL Q6HR #20 tab.rapdis 06/04/18 [Rx] hydroCHLOROthiazide [Hydrochlorothiazide] 25 mg PO DAILY 06/04/18 [History] Axitinib [Inlyta] 5 mg PO BID #60 tablet 06/08/18 [Rx] HydrOXYzine 10 mg PO TID PRN #30 tablet 06/16/18 [Rx] Allergy/AdvReac Type Severity Reaction Status Date / Time codeine Allergy See Verified 06/04/18 09:37 Comments Constitutional: Present: anorexia, fatigue, weight loss. Absent: chills, fever(s), headache(s) Eyes: Absent: change in vision Nose, mouth and throat: Absent: dysphagia, odynophagia Cardiovascular: Present: as per HPI Respiratory: Present: cough, dyspnea on exertion Gastrointestinal: Present: as per HPI, abdominal pain. Absent: diarrhea, nausea, vomiting Genitourinary: Absent: dysuria Musculoskeletal: Present: muscle weakness Integumentary: Present: pruritus Neurological: Present: dizziness. Absent: confusion, focal weakness Psychiatric: Present: as per HPI Hematologic/Lymphatic: Present: as per HPI Oncology - Exam - Constitutional General appearance: cooperative, no acute distress, no febrile - Head Head exam: Present: atraumatic - ENT ENT exam: Present: mucous membranes moist, normal oropharynx - Respiratory Respiratory exam: Present: CTAB. Absent: respiratory distress - Cardiovascular Cardiovascular exam: Present: RRR - GI/Abdominal GI/Abdominal exam: Present: normal bowel sounds, soft, tenderness. Absent: rebound - Extremities Exam Extremities exam: Absent: calf tenderness - Neurological Exam Neurological exam: Present: alert, oriented X3, no focal deficits, strengths equal and symetr throughout - Psychiatric Psychiatric exam: Present: anxious - Skin Skin exam: Present: warm Additional comments: dryness with some erythema and irritation to BUE Consult Discharge Plan - Plan Referrals: NONE,PCP [Primary Care Provider] - <Yannick Major S - Last Filed: 06/24/18 18:55> Date of Encounter: 06/24/18 - Data of Consult Requesting Physician: Tommie Pierre MD Primary Care Provider: PCP NONE Inpatient Charges Provider: Dr. Fatuma Major Consult - Inpatient: [id number] - Attending Attestation I examined this patient and my medical decision-making was reviewed with the Advanced Practice Nurse. I agree with the documented findings, disposition and treatment plan as described except to the extent set forth below. 1. Metastatic poor risk clear cell renal cell carcinoma ridging from the right kidney initially diagnosed 05/04/2018. He presented with extensive metastatic disease involving bilateral kidneys, adrenal glands, liver as well as lung. Diagnosis conformed by adrenal metastasis biopsy which showed clear cell carcinoma Current treatment: 1. Axitinib with pembrolizumab (Cycle 1 pembrolizumab 06/04/18. Axitinib financial assistance ongoing). He has not started accident and had We will postpone cycle 2 Pembrolizumab scheduled for 06/25/2018 by a week 2. Admitted with chest pain shortness of breath. D-dimer elevated at 2300. Echocardiogram 06/24/2018 showed low ejection fraction 40%. No evidence of pulmonary hypertension. Given poor ejection fraction cardiology consult may be beneficial 3. He had dizziness. On 06/24/2018: Bilateral proximal ICA has a moderate, 40- 59% stenosis. (low end) l4. Nonpathologic L1 compression fracture after fall 5. Stage III chronic kidney disease creatinine creatinine slightly getting worse from April 2018. Creatinine increased from 1.3 range to 2.5 now 6. Anemia hemoglobin 8.1. Since he is symptomatic would consider 1 unit of packed RBC transfusion 7. Generalized teaching all over the body. Bilirubin normal. Hydroxyzine not helping. We will try Neurontin dose adjusted for renal insufficiency. He also has dry skin. Skin lotion is not helping. We will consult dermatology as well
[2018-06-24] MEDS: *HR* OxyCODONE/APAP 5/325 TABLET PO PRN (13:38)
--- NOTE | 2018-06-24 14:27 | Event Note ---
Date of Encounter: 06/24/18 Time of Encounter: 08:30 patient was seen and examined at bedside. at bedside. he has metastatic poor risk clear cell renal cell carcinoma arising from the right kidney initially diagnosed 05/04/2018. currently he reportsthat his SOB has improved. is inquiring about the oncology team to see him as he has had only one round of chemotherapy and is due for another round this week. currently he denies recent chest trauma, has had no fever or chills, N/V/D. denies cough or chest pain. discussed code status with patient adn at bedside - he wishes to be full code. NAD, speaks in full sentences RRR s1 and s2 decreased breathsounds bilaterarily Left arm is erythematous however non-tender. moving all extremities. Axox 3, no focal deficit A/P acute hypoxic respiratory failure- rule out PE, doppler, TTE nad V/Q scan ordered will follow- was started on heparin drip continue ARF - retroperitoneal US pending, continue with gentle hydration, UA pending metastatic poor risk clear cell renal cell carcinoma arising from the right kidney initially diagnosed 05/04/2018- oncology consulted will follow recs. rest of the management as per HPI
[2018-06-24] MEDS ORDERED: Gabapentin 100 MG CAPSULE PO SCH (21:00)
[2018-06-25 01:53] LABS: Hematocrit 26.4 % (37.5-50.1); Hemoglobin 8.1 g/dL (12.9-16.9); Mean Corpuscular HGB Conc 30.7 g/dL (31.6-35.5); Mean Corpuscular Hemoglobin 29.7 pg (28.0-33.3); Mean Corpuscular Volume 96.7 fL (83.0-100.0); Mean Platelet Volume 11.1 fL (9.4-12.4); Platelet Count 150 K/mcL (140-400); Red Blood Count 2.73 M/mcL (4.19-5.50); Red Cell Distribution Width 14.8 % (11.5-14.5)
[2018-06-25 02:00] LABS: VBG Ionized Calcium 1.24 mmol/L (1.15-1.35)
[2018-06-25] MEDS: Heparin 25,000 UNIT/250 ML D5W 25,000 UNIT/250 ML IV.SOLN IVC SCH ×2 (02:18→22:13)
[2018-06-25 02:28] LABS: Albumin 3.1 g/dL (3.5-5.7); Albumin/Globulin Ratio 1.1 (1.1-2.2); Bilirubin,Total 0.4 mg/dL (0.3-1.0); Calcium 8.6 mg/dL (8.6-10.3); Globulin 2.7 g/dL (2.4-3.5); Potassium 4.6 mEq/L (3.5-5.1); Total Protein 5.8 g/dL (6.4-8.9)
[2018-06-25] MEDS: Ipratropium/Albuterol Neb 3 ML IH SCH ×4 (03:52→21:43)
[2018-06-25] MEDS: 0.9 % Sodium Chloride 1,000 ML IVC SCH (04:40)
[2018-06-25] MEDS: Insulin LISPRO 300 UNITS/3 ML VIAL SQ SCH ×4 (07:13→22:11)
[2018-06-25] MEDS: Fenofibrate 54 MG TABLET PO SCH (07:19)
[2018-06-25] MEDS: Loratadine 10 MG TABLET PO SCH (07:19)
[2018-06-25] MEDS: Acetaminophen 325 MG TABLET PO PRN (07:19)
[2018-06-25] MEDS: Ondansetron 4 MG/2 ML VIAL IVP PRN (09:09)
[2018-06-25] MEDS ORDERED: Calamine/Zinc oxide Lotion 120 ML BOTTLE TP PRN (10:25)
[2018-06-25] MEDS: *HR* Heparin 5,000 UNIT/ML VIAL IVP PRN (12:42)
--- NOTE | 2018-06-25 12:49 | Internal Med Progress Note ---
Hospitalist Progress Note - Encounter Date of Encounter: 06/25/18 Time of Encounter: 09:00 - Subjective Interval History: Patient was seen and examined at bedside. Her at bedside, I discussed all of the imaging findings they understand that the CAT scan shows worsening metastatic disease. He reports that he feels much better than yesterday, he den ies chest pain, palpitations or nausea or vmiting. SOB has significantly improved. all questions answered. is tolerating PO diet, Dizziness resolved. - Exam Vitals: Temp Pulse Resp BP Pulse Ox 98.8 F 94 16 101/62 98 06/25/18 11:44 06/25/18 11:44 06/25/18 11:44 06/25/18 11:44 06/25/18 11:44 Exam: NAD, speaks in full sentences RRR s1 and s2, could not appreciate murmurs, has device in the left chest decreased breathsounds bilaterally, occasional wheezing in the posterior lung turpin ( improved) moving all extremities, strength adn bulk is symmetric through out. Axox 3, no focal deficit, rapid hand movements intact, negative pronator drift, finger to nose intact Ski: extremely dry, erythematous skin all over the body. - Assessment and Plan (1) Diabetes mellitus Current Visit: No Status: Chronic (2) Anemia Current Visit: No Status: Chronic (3) HTN (hypertension) Current Visit: No Status: Chronic (4) HLD (hyperlipidemia) Current Visit: No Status: Chronic (5) CAD (coronary artery disease) Current Visit: No Status: Chronic (6) DVT prophylaxis Current Visit: No Status: Acute (7) Goals of care, counseling/discussion Current Visit: Yes Status: Acute (8) Shortness of breath Current Visit: Yes Status: Acute (9) History of DVT (deep vein thrombosis) Current Visit: No Status: Chronic (10) Metastatic cancer Current Visit: Yes Status: Acute (11) Suspected pulmonary embolism Current Visit: Yes Status: Acute (12) Acute respiratory failure Current Visit: Yes Status: Acute (13) Acute kidney injury superimposed on CKD Current Visit: Yes Status: Acute (14) Carotid stenosis Current Visit: No Status: Chronic - Summary of Assessment and Plan Summary of Assessment and Plan: A/P Mr. Dawson is a 72 year old male with metastatic poor risk clear cell renal cell carcinoma arising from the right kidney initially diagnosed 05/04/2018, CAD s/p CABG, HTN and COPD presented from [facility] with worsening SOB and was admitted for acute hypoxic respiratory failure. acute hypoxic respiratory failure: ? secondary to PE vs increased pulmonary nodule. was started on heparin Drip at [place] which has been continued, unable to perform CTPA due to renal function so V/Q scan was performed and is positive for mismatch, nuclear medicine and radiology was contacted to reread the study as no CXR was available at the time of Study- will follow. oncology on board will follow recommendations. continue with duo-nebs ARF - retroperitoneal US/ CT A/p without evidence of hydronephrosis, UA and urne lytes are pending, continue with gentle hydration as , continue with gentle hyd ration as creatinine has trended down to 2.04. baseline creatinine is about 1.5, strict I/o , continue to monitor renal functions. metastatic poor risk clear cell renal cell carcinoma arising from the right kidney initially diagnosed 05/04/2018- CT chest , Abdomen and pelvis performed on 06/24 with worsening mets. oncology consulted will follow recs. chronic anemia: H/H is about baseline of 8-9. transfuse if <8 as he has had cardiac history. hematology/oncology on board. compression fracture of L1: was seen by orthopedics in april 2018- was found that this is a nonoperative fracture and the treatment is very conservative. will discuss with orthopedics as it has increased as compared to previous study. puritis: skin is extremely dry, started on ointment to hydrate, continue with hydroxyzine, will reevaluate. carotid artery stenosis: Bilateral proximal ICA has a moderate, 40-59% stenosis. (low end), MRI head without acute stroke, OP vascular surgery follow up CAD s/p CABG: continue with BB, statins, poor nutrition: nutrition consulted will follow recs. code status: i discussed code status with patient adn at bedside for 15 minutes and he wishes to be full code. DVT prophylaxis: on heparin Drip. - Time Spent with Patient Total time spent is greater than 50% in coordination of care (as documented) at patient's floor/unit and/or counseling patient: 25 - 35 minutes Plan of Care Discussed with: patient Internal Medicine: Result - Labs CBC & Chem 7: 06/25/18 01:45 06/25/18 01:45 Labs: Short CBC 06/25/18 Range/Units 01:45 WBC 7.4 (4.3-11.1) K/mcL Hgb 8.1 L (12.9-16.9) g/dL Hct 26.4 L (37.5-50.1) % Plt Count 150 (140-400) K/mcL BMP 06/25/18 01:45 Sodium 141 Potassium 4.6 Chloride 110 H Carbon Dioxide 23 BUN 48 H Creatinine 2.04 H Glucose 76 Calcium 8.6 Liver Function 06/25/18 Range/Units 01:45 Total Bilirubin 0.4 (0.3-1.0) mg/dL AST 21 (13-39) Units/L ALT 11 (7-52) Units/L Alkaline Phosphatase 41 (34-104) Units/L Albumin 3.1 L (3.5-5.7) g/dL - ABG Interpretation ABG results: PT/INR, D-dimer PT 11.7 Seconds (9.4-12.1) 06/23/18 22:42 - Impressions Impressions Echocardiogram 06/23/18 22:10 Impressions: LVEF 40%. Atypical septal motion consistent with paced rhythm. Indeterminate diastolic function. Normal right ventricular structure and function. Mild tricuspid regurgitation. No evidence of pulmonary hypertension. A device lead was visualized in the right atrium and right ventricle. Left Ventricular Wall Motion: Rest Echo Findings The apex, apical inferior, mid inferior, basal inferior, apical anterior, mid anterior, basal anterior, apical septal, mid inferior septal, basal inferior septal, apical lateral, mid anterior lateral, basal anterior lateral, mid anterior septal, mid inferior lateral, basal anterior septal and basal inferior lateral miranda were hypokinetic. Findings: Study Quality * Technically sub-optimal due to poor echocardiographic windows. ECG Findings * Paced rhythm. Left Ventricle * LVEF 40%. * Atypical septal motion consistent with paced rhythm. * Indeterminate diastolic function. * Mildly dilated left ventricle. Right Ventricle * Normal right ventricular structure and function. Left Atrium * Mildly dilated left atrium. Right Atrium * Normal right atrial size. Aortic Valve * Aortic valve not well evaluated Mitral Valve * Trace mitral regurgitation. * Normal mitral valve structure. * No mitral stenosis. Tricuspid Valve * Mild tricuspid regurgitation. * No tricuspid stenosis. * Normal tricuspid valve structure. * No evidence of pulmonary hypertension. Pulmonic Valve * No pulmonic regurgitation. Aorta * Normally sized aortic root. Pericardium * The pericardium appears normal. IVC * The IVC is not well evaluated. Pulmonary Artery * Normal visualized portions of the main pulmonary artery. Device lead * A device lead was visualized in the right atrium and right ventricle. Chest X-Ray 06/24/18 14:29 IMPRESSION: Stable bilateral pulmonary nodules, most prominent in the left lower lobe. No definite focal consolidation. D/ / Lindsay Berry MD / Lindsay Berry MD Interpreting Provider: Lindsay Berry MD X-Ray 06/24/18 14:55 IMPRESSION: Mild small bowel distention in the left upper quadrant and mid abdomen. The findings may be related to a mild ileus or early obstruction. Consider follow-up evaluation. Cholelithiasis. D/ / Rhett Hart MD / Rhett Hart MD Interpreting Provider: Rhett Hart MD Retroperitoneum Ultrasound 06/24/18 16:00 IMPRESSION: 1. No evidence of hydronephrosis. 2. Bilateral renal masses corresponding to renal cell carcinomas described on prior CT examination. D/ / Lindsay Berry MD / Lindsay Berry MD Interpreting Provider: Lindsay Berry MD Abdomen/Pelvis CT 06/24/18 18:30 IMPRESSION: No acute findings. Evaluation for metastatic disease is limited without intravenous contrast. Hepatic metastatic disease likely has increased. D/ / 06/24/2018 21:19:39 Alfonso Jimenez MD / lashanda Interpreting Provider: Alfonso Jimenez MD Chest CT 06/24/18 18:30 IMPRESSION: Interval increase in pulmonary nodules consistent with metastatic disease. Multiple ill-defined hepatic lesions consistent with metastatic disease. Bilateral adrenal masses appears stable. Increased compression fracture L1. D/ / Joe Morris MD / Joe Morris MD Interpreting Provider: Joe Morris MD Brain MRI 06/25/18 15:09 IMPRESSION: No acute intracranial abnormality. Mild parenchymal volume loss. Minimal chronic microvascular disease. Left sphenoid sinusitis. 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; N18.3 - Chronic kidney disease, stage 3 (moderate) (2) Anemia Qualifiers: Anemia type: due to chronic kidney disease Chronic kidney disease stage: stage 3 (moderate) Qualified Code(s): N18.3 - Chronic kidney disease, stage 3 (moderate); D63.1 - Anemia in chronic kidney disease (3) HTN (hypertension) Qualifiers: Hypertension type: essential hypertension Qualified Code(s): I10 - Essential (primary) hypertension (4) HLD (hyperlipidemia) Qualifiers: Hyperlipidemia type: mixed hyperlipidemia Qualified Code(s): E78.2 - Mixed hyperlipidemia (5) CAD (coronary artery disease) Qualifiers: Coronary Disease-Associated Artery/Lesion type: [place] artery [place] vs. transplanted heart: [place] heart Associated angina: without angina Qualified Code(s): I25.10 - Atherosclerotic heart disease of [place] coronary artery without angina pectoris (12) Acute respiratory failure Qualifiers: Respiratory failure complication: hypoxia Qualified Code(s): J96.01 - Acute respiratory failure with hypoxia (14) Carotid stenosis Qualifiers: Laterality: bilateral Qualified Code(s): I65.23 - Occlusion and stenosis of bilateral carotid arteries
--- NOTE | 2018-06-25 13:14 | Oncology Inp Progress Note ---
<Walt Carney - Last Filed: 06/25/18 16:52> Date of Encounter: 06/25/18 Oncology: Obj Data - Labs CBC & Chem 7: 06/25/18 01:45 06/25/18 01:45 Consult Discharge Plan - Plan Referrals: NONE,PCP [Primary Care Provider] - Inpatient Charges Provider: Dr. Siddharth Carney Follow up - Inpatient: [id number] - Attending Attestation I examined this patient and my medical decision-making was reviewed with the Advanced Practice Nurse. I agree with the documented findings, disposition and treatment plan as described except to the extent set forth below. -Patient with metastatic clear cell, renal cell carcinoma. Started on pembrolizumab and Axitinib. He received one cycle of pembrolizumab, but has not received his Axitinib yet. It should be coming in the mail following discharge. -He is admitted with an SHIVAM and SOB. -SHIVAM likely prerenal as his kidney function is improving with IVFs. -He remains on a heparin gtt for concern for a PE -His SOB remains stable. <Aimee Siddiqui - Last Filed: 06/25/18 17:04> Date of Encounter: 06/25/18 Time of Encounter: 14:00 (1) Renal cell carcinoma Current Visit: No Status: Acute Assessment and plan: Metastatic, poor risk, clear cell renal cell carcinoma arising from the right kidney initially diagnosed 05/04/2018. S/P cycle #1 pembrolizumab immunotherapy (Axitinib not given yet as combination, as financial assistance is ongoing for the medication, planning for resolution soon) on 06/04/2018. CT chest/abdomen/pelvis does show progression of lung/liver mets Plan: Patient has evidence of aggressive malignancy that will continue to progress without treatment Recommend treating acute issues and plan to continues current treatment regimen as outpatient should his performance status allow Axitinib has been approved and is ready for delivery-I verified with financial counselor today, the delivery service has been unable to reach patients I gave patients the [employer] number today and she is to call when he is ready for d/c to arrange for delivery (they will not arrange delivery while he is inpatient) Qualifiers: Qualified Code(s): C64.9 - Malignant neoplasm of unspecified kidney, except renal pelvis (2) Shortness of breath Current Visit: Yes Status: Acute Assessment and plan: Unable to obtain CTA to rule out PE due to SHIVAM VQ scan pending after adding in order for CXR for comparison CT chest does show increase in size of pulmonary metastases as well as liver mets Venous doppler BLE negative Currently on heparin gtt---consider stopping once VQ resulted unless it notes high suspicion for PE, addendum is still pending Continue duonedayna (3) Pruritus Current Visit: Yes Status: Acute Assessment and plan: Chronic, not controlled with hydroxyzine Etiology not clear Plan: No evidence of abnormal LFTs Low dose Neurontin started due to SHIVAM 100 mg daily--HOLD due to noted increased drowsiness-consider restarting once resolved Patient does note some improvement today, consider Dermatology consult if needed (4) Acute kidney injury superimposed on CKD Current Visit: Yes Status: Acute Assessment and plan: Improving with gentle hydration RP US-No evidence of hydronephrosis, Bilateral renal masses corresponding to renal cell carcinomas Oncology: Subj Interval history: Mr. Dawson is resting in bed. He is drowsy today. His is at bedside. Patient has also been c/o nausea. Pruritis is somewhat improved. Appears comfortable and resting, awakens to voice but falls back to sleep during conversation. - Constitutional General appearance: cooperative, no acute distress, no febrile Exam: Drowsy, awakens to voice but falls asleep during conversation - Head Head exam: Present: atraumatic - ENT ENT exam: Present: mucous membranes moist, normal oropharynx - Respiratory Respiratory exam: Present: CTAB. Absent: respiratory distress - Cardiovascular Cardiovascular exam: Present: RRR - GI/Abdominal GI/Abdominal exam: Present: normal bowel sounds, soft. Absent: guarding, r ebound, tenderness - Extremities Exam Extremities exam: Present: normal inspection. Absent: calf tenderness - Neurological Exam Neurological exam: Present: alert, no focal deficits, strengths equal and symetr throughout - Skin Skin exam: Present: dry, normal color, warm Oncology: Obj Data - Labs CBC & Chem 7: 06/25/18 01:45 06/25/18 01:45 Inpatient Charges Provider: Dr. Siddharth Carney
[2018-06-25 17:41] LABS: % Iron Saturation 10 % (20-55); Iron 22 mcg/dL (65-175); Lactate Dehydrogenase 179 Units/L (140-271); Transferrin 160 mg/dL (203-362)
[2018-06-25] MEDS: *HR* OxyCODONE/APAP 5/325 TABLET PO PRN (22:43)
[2018-06-26] MEDS: Ipratropium/Albuterol Neb 3 ML IH SCH ×4 (04:15→22:01)
[2018-06-26 04:22] LABS: Mean Corpuscular HGB Conc 30.8 g/dL (31.6-35.5); Mean Corpuscular Hemoglobin 29.9 pg (28.0-33.3); Platelet Count 127 K/mcL (140-400); Red Blood Count 2.68 M/mcL (4.19-5.50); Red Cell Distribution Width 14.9 % (11.5-14.5)
[2018-06-26 04:42] LABS: Calcium 8.3 mg/dL (8.6-10.3); Potassium 4.3 mEq/L (3.5-5.1)
[2018-06-26 05:41] LABS: Ferritin 452 ng/mL (20-250)
[2018-06-26 08:27] LABS: Bilirubin,Urine Negative (Negative); Blood,Urine Negative (Negative); Clarity,Urine Clear (Clear); Color,Urine Yellow (Yellow); Glucose,Urine (UA) Normal (Normal); Ketones,Urine Negative (Negative); Leukocyte Esterase,Urine Negative (Negative); Nitrite,Urine Negative (Negative); PH,Urine 5.5 pH Units (5.0-8.0); Protein,Urine Negative (Neg-Trace); Specific Gravity,Urine 1.015 (1.010-1.025); Urobilinogen,Urine Normal (Normal)
[2018-06-26 09:07] LABS: Sodium, Urine 50.4 mEq/L
[2018-06-26 09:30] LABS: Folate 18.3 ng/mL (3.0-16.0)
[2018-06-26] MEDS: Fenofibrate 54 MG TABLET PO SCH (09:34)
[2018-06-26] MEDS: *HR* OxyCODONE/APAP 5/325 TABLET PO PRN (09:35)
[2018-06-26] MEDS: Insulin LISPRO 300 UNITS/3 ML VIAL SQ SCH ×3 (09:35→17:07)
[2018-06-26] MEDS: Loratadine 10 MG TABLET PO SCH (09:35)
--- NOTE | 2018-06-26 13:13 | Internal Med Progress Note ---
Hospitalist Progress Note - Encounter Date of Encounter: 06/26/18 Time of Encounter: 13:00 - Subjective Interval History: Patient was seen and examined at bedside. at bedside, I discussed the VQ scan findings and the new reading which suggested that it was indeterminate for pulmonary embolism. I discussed that his Wells criteria for an his has blood score was 1 and that hematology/oncology recommended to bridge him with Coumadin while being monitored in the hospital and they are in agreement. He reports that he did not sleep well last night and now has neck pain. He denies fever, chills, chest pain, palpitations or shortness of breath. Denies cough and abdominal pain has resolved. Is tolerating by mouth diet. - Exam Vitals: Temp Pulse Resp BP Pulse Ox 98.9 F 76 16 103/52 97 06/26/18 11:05 06/26/18 11:05 06/26/18 11:05 06/26/18 11:05 06/26/18 11:05 Exam: NAD, speaks in full sentences RRR s1 and s2, could not appreciate murmurs, has device in the left chest decreased breathsounds bilaterally, occasional wheezing in the posterior lung f ields ( improved) moving all extremities, strength adn bulk is symmetric through out. Axox 3, no focal deficit, rapid hand movements intact, negative pronator drift, finger to nose intact Ski: extremely dry, erythematous skin all over the body. - Assessment and Plan (1) Diabetes mellitus Current Visit: No Status: Chronic (2) Anemia Current Visit: No Status: Chronic (3) HTN (hypertension) Current Visit: No Status: Chronic (4) HLD (hyperlipidemia) Current Visit: No Status: Chronic (5) CAD (coronary artery disease) Current Visit: No Status: Chronic (6) DVT prophylaxis Current Visit: No Status: Acute (7) Goals of care, counseling/discussion Current Visit: Yes Status: Acute (8) Shortness of breath Current Visit: Yes Status: Acute (9) History of DVT (deep vein thrombosis) Current Visit: No Status: Chronic (10) Metastatic cancer Current Visit: Yes Status: Acute (11) Suspected pulmonary embolism Current Visit: Yes Status: Acute (12) Acute respiratory failure Current Visit: Yes Status: Acute (13) Acute kidney injury superimposed on CKD Current Visit: Yes Status: Acute (14) Carotid stenosis Current Visit: No Status: Chronic - Summary of Assessment and Plan Summary of Assessment and Plan: A/P Mr. 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 acute hypoxic respiratory failure: ? secondary to PE vs increased pulmonary nodule. was started on heparin Drip at [place] which has been continued, unable to perform CTPA due to renal function so V/Q scan was performed and is indeterminate for PE. wells criteria is 4 ( moderate risk) nad has bled score of 1. i discussed with flower grader/oncologist oncology rn ( Dr. rios) and he re commended to start bridging with coumadin and monitor in hospital while he is being bridged and for him to follow up as OP. Coumadin was started, pharmacy to dose. ARF - retroperitoneal US/ CT A/p without evidence of hydronephrosis, UA and urine lytes are pending ( nursing staff aware) , continue with gentle hydration as , continue with gentle hydration. baseline creatinine is about 1.5, strict I/o , continue to monitor renal functions. 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 oncology on board chronic anemia: H/H is about baseline of 8-9. transfuse if <8 as he has had cardiac history. hematology/oncology on board. compression fracture of L1: was seen by orthopedics in april 2018- was found that this is a nonoperative fracture and the treatment is very conservative. will discuss with orthopedics as it has increased as compared to previous study. puritis: skin is extremely dry, started on ointment to hydrate, continue with hydroxyzine, has improved carotid artery stenosis: Bilateral proximal ICA has a moderate, 40-59% stenosis. (low end), MRI head without acute stroke, OP vascular surgery follow up CAD s/p CABG: continue with BB, statins, poor nutrition: nutrition consulted will follow recs. code status: i discussed code status with patient and at bedside for 15 minutes and he wishes to be full code. DVT prophylaxis: on heparin Drip and bridged with coumadin - Time Spent with Patient Total time spent is greater than 50% in coordination of care (as documented) at patient's floor/unit and/or counseling patient: 25 - 35 minutes Plan of Care Discussed with: patient Internal Medicine: Result - Labs CBC & Chem 7: 06/26/18 04:12 06/26/18 04:12 Labs: Short CBC 06/26/18 Range/Units 04:12 WBC 5.8 (4.3-11.1) K/mcL Hgb 8.0 L (12.9-16.9) g/dL Hct 26.0 L (37.5-50.1) % Plt Count 127 L (140-400) K/mcL BMP 06/26/18 04:12 Sodium 138 Potassium 4.3 Chloride 108 H Carbon Dioxide 24 BUN 45 H Creatinine 2.21 H Glucose 83 Calcium 8.3 L Urine 06/26/18 Range/Units 08:10 Urine Color Yellow (Yellow) Urine Clarity Clear (Clear) Urine pH 5.5 (5.0-8.0) pH Units Ur Specific [place] 1.015 (1.010-1.025) Urine Protein Negative (Neg-Trace) mg/dL Urine Glucose (UA) Normal (Normal) mg/dL - ABG Interpretation ABG results: PT/INR, D-dimer PT 11.7 Seconds (9.4-12.1) 06/23/18 22:42 Consult Discharge Plan - Plan Referrals: NONE,PCP [Primary Care Provider] - (1) Diabetes mellitus Qualifiers: Diabetes mellitus type: type 2 Diabetes mellitus bed bug exterminator insulin use: without bed bug exterminator use Diabetes mellitus complication status: with kidney complications Diabetes mellitus complication detail: with chronic kidney disease Chronic kidney disease stage: stage 3 (moderate) Qualified Code(s): E11.22 - Type 2 diabetes mellitus with diabetic chronic kidney disease; N18.3 - Chronic kidney disease, stage 3 (moderate) (2) Anemia Qualifiers: Anemia type: due to chronic kidney disease Chronic kidney disease stage: stage 3 (moderate) Qualified Code(s): N18.3 - Chronic kidney disease, stage 3 (moderate); D63.1 - Anemia in chronic kidney disease (3) HTN (hypertension) Qualifiers: Hypertension type: essential hypertension Qualified Code(s): I10 - Essential (primary) hypertension (4) HLD (hyperlipidemia) Qualifiers: Hyperlipidemia type: mixed hyperlipidemia Qualified Code(s): E78.2 - Mixed hyperlipidemia (5) CAD (coronary artery disease) Qualifiers: Coronary Disease-Associated Artery/Lesion type: [place] artery [place] vs. transplanted heart: [place] heart Associated angina: without angina Qualified Code(s): I25.10 - Atherosclerotic heart disease of [place] coronary artery without angina pectoris (12) Acute respiratory failure Qualifiers: Respiratory failure complication: hypoxia Qualified Code(s): J96.01 - Acute respiratory failure with hypoxia (14) Carotid stenosis Qualifiers: Laterality: bilateral Qualified Code(s): I65.23 - Occlusion and stenosis of bilateral carotid arteries
[2018-06-26] MEDS: 0.9 % Sodium Chloride 1,000 ML IVC SCH (13:50)
[2018-06-26 15:27] LABS: Heparin anti-factor XA UFH 0.51 IU/mL (0.30-0.70); INR 1.2; Prothrombin Time 13.2 Seconds (9.4-12.1)
[2018-06-26] MEDS ORDERED: Warfarin perPT PO PRN (18:00)
[2018-06-26] MEDS ORDERED: *HR* Warfarin 5 MG TABLET PO ONE (18:00)
[2018-06-26] MEDS: Heparin 25,000 UNIT/250 ML D5W 25,000 UNIT/250 ML IV.SOLN IVC SCH (19:45)
[2018-06-27] MEDS: *HR* OxyCODONE/APAP 5/325 TABLET PO PRN ×2 (00:29→08:53)
[2018-06-27] MEDS: Insulin LISPRO 300 UNITS/3 ML VIAL SQ SCH ×5 (00:37→21:44)
[2018-06-27] MEDS: Ipratropium/Albuterol Neb 3 ML IH SCH ×4 (04:02→21:35)
[2018-06-27] MEDS: 0.9 % Sodium Chloride 1,000 ML IVC SCH ×2 (06:13→21:55)
[2018-06-27] MEDS: Loratadine 10 MG TABLET PO SCH (08:54)
[2018-06-27] MEDS: Fenofibrate 54 MG TABLET PO SCH (08:54)
[2018-06-27 09:01] LABS: INR 1.2; Prothrombin Time 13.6 Seconds (9.4-12.1)
[2018-06-27 09:12] LABS: Calcium 8.7 mg/dL (8.6-10.3); Potassium 3.9 mEq/L (3.5-5.1)
[2018-06-27] MEDS ORDERED: Naloxone 0.4 MG/ML INJ IVP PRN (11:46)
[2018-06-27] MEDS ORDERED: *HR* OxyCODONE/APAP 5/325 TABLET PO PRN (11:47)
--- NOTE | 2018-06-27 11:48 | Internal Med Progress Note ---
Hospitalist Progress Note - Encounter Date of Encounter: 06/27/18 Time of Encounter: 09:40 - Subjective Interval History: Patient was seen and examined at bedside. Continues to have pain all over his body and reports that the oxycodone is minimally effective. Reports that his pureed is has improved significantly with the lotion is been provided. I dis cussed my conversation with hematology oncology again and him and his are in agreement with Coumadin for now until he follows up as outpatient. I discussed that I will readjust the pain medications for better control. He denies fever, chills, nausea, vomiting or diarrhea. He has had no leg weakness numbness or tingling. No episodes of bowel or bladder incontinence. All questions answered. - Exam Vitals: Temp Pulse Resp BP Pulse Ox 99.4 F 66 18 111/55 96 06/27/18 11:05 06/27/18 11:05 06/27/18 11:05 06/27/18 11:05 06/27/18 11:05 Exam: NAD, speaks in full sentences RRR s1 and s2, could not appreciate murmurs, has device in the left chest decreased breathsounds bilaterally, occasional wheezing in the posterior lung [place] ( improved) moving all extremities, strength adn bulk is symmetric through out. Axox 3, no focal deficit, rapid hand movements intact, negative pronator drift, finger to nose intact Ski: extremely dry, erythematous skin all over the body. - Assessment and Plan (1) Diabetes mellitus Current Visit: No Status: Chronic (2) Anemia Current Visit: No Status: Chronic (3) HTN (hypertension) Current Visit: No Status: Chronic (4) HLD (hyperlipidemia) Current Visit: No Status: Chronic (5) CAD (coronary artery disease) Current Visit: No Status: Chronic (6) DVT prophylaxis Current Visit: No Status: Acute (7) Goals of care, counseling/discussion Current Visit: Yes Status: Acute (8) Shortness of breath Current Visit: Yes Status: Acute (9) History of DVT (deep vein thrombosis) Current Visit: No Status: Chronic (10) Metastatic cancer Current Visit: Yes Status: Acute (11) Suspected pulmonary embolism Current Visit: Yes Status: Acute (12) Acute respiratory failure Current Visit: Yes Status: Acute (13) Acute kidney injury superimposed on CKD Current Visit: Yes Status: Acute (14) Carotid stenosis Current Visit: No Status: Chronic - Summary of Assessment and Plan Summary of Assessment and Plan: A/P Mr. Dawson is a 72 year old male with metastatic poor risk clear cell renal cell carcinoma arising from the right kidney initially diagnosed 05/04/2018, CAD s/p CABG, HTN and COPD presented from [facility] with worsening SOB and was admitted for acute hypoxic respiratory failure. acute hypoxic respiratory failure: ? secondary to PE vs increased pulmonary nodule. was started on heparin Drip at [place] which has been continued, unable to perform CTPA due to renal function so V/Q scan was performed and is indeterminate for PE. wells criteria is 4 ( moderate risk) and has bled score of 1. i discussed with lipcoat sprayer/oncologist fire protection equipment technician ( Dr. rios) and he recommended to start bridging with coumadin and monitor in hospital while he is being bridged and for him to follow up as OP. Coumadin was started, pharmacy to dose. INR 1.2 ARF - retroperitoneal US/ CT A/p without evidence of hydronephrosis, UA and urine lytes are pending ( nursing staff aware) , continue with gentle hydration as , continue with gentle hydration. baseline creatinine is about 1.5 , strict I/o , continue to monitor renal functions. currently renal functions are almost back to baseline with creatinine of 1.6. metastatic poor risk clear cell renal cell carcinoma arising from the right kidney initially diagnosed 05/04/2018- CT chest , Abdomen and pelvis performed on 06/24 with worsening mets. oncology on board chronic anemia: H/H is about baseline of 8-9. transfuse if <8 as he has had cardiac history. hematology/oncology on board. compression fracture of L1: was seen by orthopedics in april 2018- was found that this is a nonoperative fracture and the treatment is very conservative. discussed with orthopedics who recommended Spine surgery to evaluate the patient- will discuss with Dr. ackerman. puritis: skin is extremely dry, started on ointment to hydrate, continue with hydroxyzine, has improved carotid artery stenosis: Bilateral proximal ICA has a moderate, 40-59% stenosis. (low end), MRI head without acute stroke, OP vascular surgery follow up CAD s/p CABG: continue with BB, statins, poor nutrition: nutrition consulted will follow recs. uncontrolled pain: will consult palliative medicine both for goals of care and pain medications recommendations. Gabapentin resumed as pain has improved. colace and senna code status: i discussed code status with patient and at bedside for 15 minutes and he wishes to be full code. DVT prophylaxis: on heparin Drip and bridged with coumadin - Time Spent with Patient Total time spent is greater than 50% in coordination of care (as documented) at patient's floor/unit and/or counseling patient: 25 - 35 minutes Plan of Care Discussed with: family - Is Patient Candidate for Palliative Care Consider palliative consult if one or more criteria present:: Declining functional capacity or persistent weight loss, Seriously ill patient; no advanced directives or plan of care in place Internal Medicine: Result - Labs CBC & Chem 7: 06/26/18 04:12 06/27/18 08:23 Labs: BMP 06/27/18 08:23 Sodium 139 Potassium 3.9 Chloride 103 Carbon Dioxide 23 BUN 38 H Creatinine 1.69 H Glucose 116 H Calcium 8.7 - ABG Interpretation ABG results: PT/INR, D-dimer PT 13.6 Seconds (9.4-12.1) H 06/27/18 08:23 Consult Discharge Plan - Plan Referrals: NONE,PCP [Primary Care Provider] - (1) Diabetes mellitus Qualifiers: Diabetes mellitus type: type 2 Diabetes mellitus terminal block assembler insulin use: without residential use Diabetes mellitus complication status: with kidney complications Diabetes mellitus complication detail: with chronic kidney disease Chronic kidney disease stage: stage 3 (moderate) Qualified Code(s): E11.22 - Type 2 diabetes mellitus with diabetic chronic kidney disease; N18.3 - Chronic kidney disease, stage 3 (moderate) (2) Anemia Qualifiers: Anemia type: due to chronic kidney disease Chronic kidney disease stage: stage 3 (moderate) Qualified Code(s): N18.3 - Chronic kidney disease, stage 3 (moderate); D63.1 - Anemia in chronic kidney disease (3) HTN (hypertension) Qualifiers: Hypertension type: essential hypertension Qualified Code(s): I10 - Essential (primary) hypertension (4) HLD (hyperlipidemia) Qualifiers: Hyperlipidemia type: mixed hyperlipidemia Qualified Code(s): E78.2 - Mixed hyperlipidemia (5) CAD (coronary artery disease) Qualifiers: Coronary Disease-Associated Artery/Lesion type: [place] artery [place] vs. transplanted heart: [place] heart Associated angina: without angina Qualified Code(s): I25.10 - Atherosclerotic heart disease of [place] coronary artery without angina pectoris (12) Acute respiratory failure Qualifiers: Respiratory failure complication: hypoxia Qualified Code(s): J96.01 - Acute respiratory failure with hypoxia (14) Carotid stenosis Qualifiers: Laterality: bilateral Qualified Code(s): I65.23 - Occlusion and stenosis of bilateral carotid arteries
--- NOTE | 2018-06-27 14:12 | Oncology Inp Progress Note ---
Date of Encounter: 06/27/18 Time of Encounter: 14:12 Oncology: Subj Interval history: Subjective: Patient endorses drowsiness, generalized joint pains, and SOB at times, but otherwise denies any fevers, chills, N/V, or urinary issues. Objective: PE: Vitals: T 99.4 F, HR 66, RR 18, BP 111/55, SaO2 96% on RA Gen: AAO x 3, in NAD HEENT: NC/AT, PERRLA, EOMI CV: RRR, no MRGs LUNGS: Decreased BS with scattered wheezes. No rales or rhonchi. ABD: Soft, NT, ND, +BS EXT: No c/c/e Neuro: No focal deficits A/P: Shortness of breath -Patient states symptoms have slightly improved since admission. -Unable to obtain CTA of the chest to rule out a PE due to SHIVAM -VQ scan shows no large areas of perfusion ventilation mismatch identified -CXR shows b/l pulmonary nodules, most stable in LLL. -Venous Duplex US LEs negative for DVT -Currently on heparin gtt and being bridged to Coumadin due to intermediate risk Wells score -However, we will review V/Q scan and CXR with radiology to confirm likelihood of PE tomorrow -I do feel that his SOB is likely attributable to his progressive disease and pulmonary nodules and only treatment will help alleviate his symptoms. -His H/H is 8.0/ 26.0 and plts are 127 so these must be closely monitored as well Renal cell carcinoma -Metastatic, poor risk, clear cell renal cell carcinoma arising from the right kidney initially diagnosed 05/04/2018. -S/p cycle #1 pembrolizumab immunotherapy -Axitinib not given yet as combination, as financial assistance is ongoing for the medication, planning for resolution soon) on 06/04/2018. -CT chest/abdomen/pelvis does show progression of lung/liver mets -Patient has evidence of aggressive malignancy that will continue to progress without treatment -Recommend treating acute issues at this time, and plan to continue current treatment regimen as outpatient -Axitinib has been approved and is now ready for delivery, this has been verified with the financial counselor Anemia -H/H 8.0/ 26.0 with an MCV of 97.0. -Fe 22, % sat 10, transferrin 160, ferritin 452; please administer venofer 300 mg IV x 1. -B12 641, folate 18.3. Acute on chronic kidney disease, likely prerenal in etiology -BUN/Cr, eGFR all improving with IVFs -Renal US shows no evidence of hydronephrosis with bilateral renal masses present corresponding to renal cell carcinomas Oncology: Obj Data - Labs CBC & Chem 7: 06/26/18 04:12 06/27/18 08:23 - Impressions Imagin06/2018 NM/NM pul vent and perfuse IMPRESSION: Evaluation is limited without a chest radiograph for comparison though no large areas of perfusion ventilation mismatch are identified. Consult Discharge Plan - Plan Referrals: NONE,PCP [Primary Care Provider] - Inpatient Charges Provider: Dr. Siddharth Carney Follow up - Inpatient: [id number]
[2018-06-27] MEDS: Ondansetron 4 MG/2 ML VIAL IVP PRN (14:28)
[2018-06-27] MEDS ORDERED: *HR* OxyCODONE Immed Rel 5 MG TABLET PO PRN (15:58)
--- NOTE | 2018-06-27 16:06 | Palliative - Consult Note ---
Date of Encounter: 06/27/18 Time of Encounter: 15:00 - Assessment and Plan (1) Weakness Current Visit: Yes Status: Acute Assessment and plan: Patient's reports patient has increased weakness. Patient will require to be ambulatory prior to discharge. PT and OT have been ordered by primary team. Patient's interested in patient going to swing bed @ discharge. (2) Palliative care encounter Current Visit: Yes Status: Acute (3) Lack of appetite Current Visit: Yes Status: Acute Assessment and plan: Patient complains of continued poor appetite. We will add Remeron. (4) Pain Current Visit: Yes Status: Acute Assessment and plan: Patient continues to right pain 10 out of 10. Patient has required 3 doses of Percocet in the last 24 hours. Requested patient's primary RN Rosaura to bring patient oxycodone. Changed Percocet to oxycodone 5 mg for moderate pain and continued oxycodone 10 for severe pain. Patient also resumed Neurontin today. (5) Exertional dyspnea Current Visit: No Status: Acute Assessment and plan: Utilize oxygen when necessary. (6) Goals of care, counseling/discussion Current Visit: Yes Status: Acute Assessment and plan: Patient and his present at bedside, or goals of care discussion. Patient and his jointly expressed desire to continue cancer treatment. Patient's expressed desire for patient to go to [facility] at discharge. PT and OT consult has been placed. Patient's states oncology informed her that cancer treatment medication to be delivered to her house once she returns home. Explained when hospice would be appropriate. Patient eligible for hospice at this time. Patient refuses hospice at present time. Family and patient aware of modalities for attaining hospice care and what is offered under hospice guidelines. Review patient's CODE STATUS wishes. Patient deferred decision to patient's , reviewed the fact that patient has stated both ways since admission. Explain process of CPR and intubation. Patient's expressed desire for everything to be performed for patient and I will attempt to keep patient . Patient to remain full code at this time. (7) Shortness of breath Current Visit: Yes Status: Acute (8) Metastatic cancer Current Visit: Yes Status: Acute Assessment and plan: Oncology following, recommendations appreciated. 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 Full code. Pain. History of present illness: Mr. Dawson is a 72 year old male arrived to [facility] as a transfer from [place] on 06/24/2018, due to having chest pain with increased dyspnea requiring oxygen support. Upon arrival patient was suspected to have a PE, V/Q scan completed, showing negative. Patient's past medical history includes COPD, coronary artery disease, congestive heart failure, coronary artery bypass graft, hypertension, hyperlipidemia, metastatic renal cancer with metastases to pulmonary hepatic and bilateral adrenal with retroperitoneal and celiac adenopathy. Patient's hepatic metastasis showing worsening. Upon admission patient was diagnosed and treated for acute on chronic kidney disease, dyspnea, diabetes, anemia, hypertension, hyperlipidemia, coronary artery disease with adjust shunt fraction 35-40%, acute respiratory failure, carotid stenosis. Dopplers completed were negative. Oncology consult performed with noted approval of initiating further palliative cancer treatment. Patient complaining of mild abdominal pain KUB performed showed mild small bowel distention with questionable mild ileus versus small bowel obstruction and cholelithiasis. MRI of head completed showing nothing acute. Relative care consulted for metastatic clear cell cancer with worsening metastases, full code, discussed with at bedside who will be decision-maker should patient not be able to make his and decisions, also has poorly controlled pain; requesting assistance with pain management and goals of care. Patient lying in bed upon arrival for assessment, with breathing treatment and place. Patient's present at bedside. Patient is alert and oriented 3. Patient denies shortness of breath. Patient reports nausea however denies vomiting; patient given Zofran and tolerated well. She complains of shoulder to back pain has required 3 doses of Percocet and 0 doses of oxycodone in the last 24 hours. Patient reports Percocet no longer helping. Asians Neurontin was resumed today. Patient denies anxiety. Patient's reports patient is ambulatory at home; requires patient to be ambulatory at discharge. Patient's denies home health at home; denies enters at this time. CC: Mimi Gan MD - Time Spent with Patient Time: Total time spent is greater than 50% in coordination of care (as documented) at patient's floor/unit and/or counseling patient: Time with patient: 60 minutes Past Med Surg Social Fam HX - Past Medical History Medical history: coronary artery disease, diabetes, hyperlipidemia, hypertension, other Additional medical history: CAROTID STENOSIS Psychiatric history: anxiety, depression - Past Surgical History Surgical History: angioplasty/stent, coronary bypass (CABG) - Social History Smoking Status: Former smoker Smokeless Tobacco Status: No Alcohol use: none Drug use: none - Family History Mother Living Status: Hx Family Cardiac Disorders: Yes Father Living Status: Hx Family Cardiac Disorders: No Medications and Allergies Cetirizine HCl [Zyrtec] 10 mg PO DAILY 04/03/17 [History] Enalapril Maleate [Vasotec] 20 mg PO DAILY 04/03/17 [History] Simvastatin [Zocor] 40 mg PO HS 04/03/17 [History] Carvedilol [Coreg] 3.125 mg PO BIDWM #60 tablet 04/07/17 [Rx] Fenofibrate Nanocrystallized [Fenofibrate] 160 mg PO DAILY 05/03/18 [History] Guaifenesin [Mucinex] 400 mg PO DAILY 06/04/18 [History] HYDROcodone/Acet 5/325 mg [[place] 5-325 mg] 1 tab PO Q8H PRN 06/04/18 [History] Levalbuterol HCl [Xopenex] 1.25 mg IH Q6HR PRN #10 vial.neb 06/04/18 [Rx] Ondansetron ODT [Zofran ODT] 4 mg SL Q6HR #20 tab.rapdis 06/04/18 [Rx] hydroCHLOROthiazide [Hydrochlorothiazide] 25 mg PO DAILY 06/04/18 [History] Axitinib [Inlyta] 5 mg PO BID #60 tablet 06/08/18 [Rx] HydrOXYzine 10 mg PO TID PRN #30 tablet 06/16/18 [Rx] Allergy/AdvReac Type Severity Reaction Status Date / Time codeine Allergy See Verified 06/04/18 09:37 Comments - Constitutional Constitutional ROS PAL: decreased appetite, anorexia, frequent falls, weight loss - Cardiovascular Cardiovascular ROS: chest pain, chest pain at rest, chest pain with activity, dyspnea on exertion, radiating pain, no diaphoresis - Respiratory Respiratory: dyspnea - Gastrointestinal Gastrointestinal: constipation, nausea, vomiting, no diarrhea - Genitourinary Genitourinary ROS male: no dysuria - Musculoskeletal Musculoskeletal ROS IM: back pain, myalgias (Into shoulder), radiating pain into limb - Integumentary ROS Integumentary: dry skin - Neurological Neurological ROS: no confusion - Psychiatric Psychiatric general PM: no anxiety Palliative Care-Exam - Constitutional Vitals: Temp Pulse Resp BP Pulse Ox 99.4 F 66 18 111/55 95 06/27/18 11:05 06/27/18 11:05 06/27/18 15:39 06/27/18 11:05 06/27/18 15:39 General appearance: Present: cooperative, no acute distress. Absent: febrile - Head Head Exam: Present: atraumatic, normal inspection - Eye Eye exam: Present: EOMI, normal appearance, PERRL. Absent: periorbital swelling, periorbital tenderness - ENT ENT exam: Present: mucous membranes dry, normal external ear exam - Neck Neck exam: Present: full ROM, normal inspection - Respiratory Respiratory exam: Present: CTAB. Absent: accessory muscle use, decreased breath sounds - Cardiovascular Cardiovascular exam: Present: RRR, +S1, +S2 - GI/Abdominal Exam GI/Abdominal exam: Present: diminished bowel sounds, soft. Absent: tenderness - Rectal Rectal Exam: Present: deferred - Extremities Exam Extremities exam: Present: normal capillary refill, normal inspection. Absent: calf tenderness, pedal edema - Back Exam Back exam: Present: normal inspection, tenderness - Neurological Exam Neurological exam: Present: alert, oriented X3, strengths equal and symetr th roughout. Absent: altered, facial droop - Expanded Neurological Exam Patient oriented to: Present: person, place, time Coma Scale Eye Opening: Spontaneous Coma Scale Motor Response: Obeys Commands Coma Scale Verbal Response: Oriented Coma Scale Total: 15 - Skin Skin exam: Present: dry, pallor, warm Internal Medicine - CN: Reslt - Labs CBC & Chem 7: 06/26/18 04:12 06/27/18 08:23 Labs: BMP 06/27/18 08:23 Sodium 139 Potassium 3.9 Chloride 103 Carbon Dioxide 23 BUN 38 H Creatinine 1.69 H Glucose 116 H Calcium 8.7 - ABG Interpretation ABG results: PT/INR, D-dimer PT 13.6 Seconds (9.4-12.1) H 06/27/18 08:23 Consult Discharge Plan - Plan Referrals: NONE,PCP [Primary Care Provider] - Palliative Quality Palliative Quality: Screen for Code Status: Yes, Screen for Goals of Care: Yes, Screen for Pain: Yes, If Pain Regimen Started, Initiate Bowel Regimen: NA, Screen for Nausea/Vomitting: Yes Code Status: 06/23/18 23:20 Resuscitation Status: Active [RES] Routine Comment: Resuscitation Status: Full Code Palliative Scale - Palliative Performance Scale How ambulatory is this patient?: Mainly in bed What is patient's level of activity and evidence of disease?: Unable to do most activity, Extensive disease How much self-care assistance does patient require?: Considerable assistance required How much oral intake does the patient have?: Minimal to sips What is this patient's level of consciousness?: Full or confusion Palliative Performance Score: 60 %
[2018-06-27] MEDS: *HR* OxyCODONE Immed Rel 5 MG TABLET PO PRN (16:48)
[2018-06-27] MEDS: Heparin 25,000 UNIT/250 ML D5W 25,000 UNIT/250 ML IV.SOLN IVC SCH (17:32)
[2018-06-27] MEDS: *HR* Heparin 5,000 UNIT/ML VIAL IVP PRN (17:32)
[2018-06-27] MEDS ORDERED: *HR* Warfarin 5 MG TABLET PO ONE (18:00)
[2018-06-27] MEDS: Gabapentin 100 MG CAPSULE PO SCH (21:45)
[2018-06-28] MEDS: Ipratropium/Albuterol Neb 3 ML IH SCH ×3 (04:06→16:10)
[2018-06-28 05:50] LABS: Hematocrit 21.2 % (37.5-50.1); Hemoglobin 6.5 g/dL (12.9-16.9); Mean Corpuscular HGB Conc 30.7 g/dL (31.6-35.5); Mean Corpuscular Hemoglobin 29.5 pg (28.0-33.3); Mean Corpuscular Volume 96.4 fL (83.0-100.0); Mean Platelet Volume 11.5 fL (9.4-12.4); Red Cell Distribution Width 14.9 % (11.5-14.5)
[2018-06-28 05:51] LABS: Platelet Count 94 K/mcL (140-400)
[2018-06-28 06:00] LABS: INR 1.4; Prothrombin Time 15.8 Seconds (9.4-12.1)
[2018-06-28 06:09] LABS: Calcium 8.6 mg/dL (8.6-10.3)
[2018-06-28] MEDS: Mirtazapine 15 MG TABLET PO SCH ×2 (06:20→20:13)
[2018-06-28] MEDS: *HR* Heparin 5,000 UNIT/ML VIAL IVP PRN ×2 (06:32→14:09)
[2018-06-28] MEDS: Insulin LISPRO 300 UNITS/3 ML VIAL SQ SCH ×4 (07:10→19:47)
[2018-06-28 08:32] LABS: Hematocrit 23.7 % (37.5-50.1); Hemoglobin 7.3 g/dL (12.9-16.9)
[2018-06-28] MEDS: Sennosides 8.6 MG TABLET PO SCH (08:59)
[2018-06-28] MEDS: Fenofibrate 54 MG TABLET PO SCH (08:59)
[2018-06-28] MEDS: Loratadine 10 MG TABLET PO SCH (08:59)
[2018-06-28] MEDS: *HR* OxyCODONE Immed Rel 5 MG TABLET PO PRN ×3 (08:59→20:16)
[2018-06-28] MEDS: 0.9 % Sodium Chloride 1,000 ML IVC SCH (09:00)
--- NOTE | 2018-06-28 11:30 | Palliative Progress Note ---
Date of Encounter: 06/28/18 Time of Encounter: 11:25 - Assessment and plan (1) Pain Current Visit: Yes Status: Acute Assessment and plan: Oxycodone was increased yest. to 10 mg. Patient states still in significant pain. Will increase frequency to every 4 hours and monitor. (2) Lack of appetite Current Visit: Yes Status: Acute Assessment and plan: Remeron was started last night however, pt refused. Re-educated on benefit and encouraged him to try this. (3) Goals of care, counseling/discussion Current Visit: Yes Status: Acute Assessment and plan: at bedside, they still desire to transition to [place] for rehab. He di d agree to work with PT this am and is up in chair. (4) Acute kidney injury superimposed on CKD Current Visit: Yes Status: Acute (5) Metastatic cancer Current Visit: Yes Status: Acute Assessment and plan: Oncology following. Patient to be started on Axitinib. (6) Palliative care encounter Current Visit: Yes Status: Acute - Time Spent With Patient Total time spent is greater than 50% in coordination of care (as documented) at patient's floor/unit and/or counseling patient: - Subjective Interval history: Patient up in chair, lab present in room. at bedside. Did participate with PT this am. c/o right shoulder pain 11/18. States pain medication helps "a little". Poor appetite, last BM 06/26. States does not feel constipated. Patient not overly talkative during my visit, frustrated that lab "stuck him several times for blood". HBG decreased today and will be getting transfused. Febrile overnight T max 101.4 Renal function almost same as yesterday BUN 36/ Cr 1.69. - Constitutional Vitals: Abnormal lab results RBC 2.20 M/mcL (4.19-5.50) L 06/28/18 05:33 Hgb 7.3 g/dL (12.9-16.9) L 06/28/18 08:10 Hct 23.7 % (37.5-50.1) L 06/28/18 08:10 MCHC 30.7 g/dL (31.6-35.5) L 06/28/18 05:33 RDW 14.9 % (11.5-14.5) H 06/28/18 05:33 Plt Count 94 K/mcL (140-400) L 06/28/18 05:33 PT 15.8 Seconds (9.4-12.1) H 06/28/18 05:33 Heparin Anti-Xa, Unfract 0.19 IU/mL (0.30-0.70) L 06/28/18 05:33 Chloride 108 mEq/L (98-107) H 06/26/18 04:12 BUN 36 mg/dL (8-23) H 06/28/18 05:33 1.69 mg/dL (0.70-1.30) H 06/28/18 05:33 Est GFR ( Amer) 48 (> 60) L 06/28/18 05:33 Est GFR (Non-Af Amer) 40 (> 60) L 06/28/18 05:33 Glucose 128 mg/dL (70-105) H 06/28/18 05:33 POC Glucose 170 mg/dL (70-99) H 06/27/18 19:18 303 (280-300) H 06/25/18 01:45 Calcium 8.3 mg/dL (8.6-10.3) L 06/26/18 04:12 Venous Ioniz Calcium 1.04 mmol/L (1.15-1.35) L 06/24/18 01:00 Iron 22 mcg/dL (65-175) L 06/25/18 13:34 % Saturation 10 % (20-55) L 06/25/18 13:34 160 mg/dL (203-362) L 06/25/18 13:34 452 ng/mL (20-250) H 06/25/18 13:34 5.8 g/dL (6.4-8.9) L 06/25/18 01:45 3.1 g/dL (3.5-5.7) L 06/25/18 01:45 18.3 ng/mL (3.0-16.0) H 06/25/18 13:34 Crossmatch See Detail 06/24/18 01:53 General appearance: Present: mild distress - Respiratory Respiratory exam: Present: decreased breath sounds, CTAB - Cardiovascular Cardiovascular exam: Present: +S1, +S2 - GI/Abdominal GI/Abdominal exam: Present: normal bowel sounds, soft - Extremities Exam Extremities exam: Present: normal capillary refill, normal inspection Additional comments: 1+ edema right arm - Neurological Exam Neurological exam: Present: alert, oriented X3 Additional comments: Limited ROM right arm r/t pain - Skin Skin exam: Present: dry, pallor, warm Palliative Quality Palliative Quality: Screen for Code Status: Yes, Screen for Goals of Care: Yes, Screen for Pain: Yes, If Pain Regimen Started, Initiate Bowel Regimen: NA, Screen for Nausea/Vomitting: Yes Code Status: 06/23/18 23:20 Resuscitation Status: Active [RES] Routine Comment: Resuscitation Status: Full Code - Labs CBC & Chem 7: 06/28/18 08:10 06/28/18 05:33 Labs: Laboratory Results - last 24 hr 06/24/18 06/27/18 06/27/18 01:53 07:04 11:04 WBC RBC Hgb Hct MCV MCH MCHC RDW Plt Count MPV PT INR Heparin Anti-Xa, Unfract Sodium Potassium Chloride Carbon Dioxide BUN Creatinine Est GFR ( Amer) Est GFR (Non-Af Amer) BUN/Creatinine Ratio Glucose POC Glucose 118 H 240 H Calculated Osmolality Calcium Blood Type O NEGATIVE Antibody Screen NEGATIVE Crossmatch See Detail 06/27/18 06/27/18 06/27/18 16:00 16:10 19:18 WBC RBC Hgb Hct MCV MCH MCHC RDW Plt Count MPV PT INR Heparin Anti-Xa, Unfract 0.18 L Sodium Potassium Chloride Carbon Dioxide BUN Creatinine Est GFR ( Amer) Est GFR (Non-Af Amer) BUN/Creatinine Ratio Glucose POC Glucose 168 H 170 H Calculated Osmolality Calcium Blood Type Antibody Screen Crossmatch 06/28/18 06/28/18 06/28/18 05:33 05:33 05:33 WBC 6.2 RBC 2.20 L Hgb 6.5 L D Hct 21.2 L MCV 96.4 MCH 29.5 MCHC 30.7 L RDW 14.9 H Plt Count 94 L MPV 11.5 PT 15.8 H INR 1.4 Heparin Anti-Xa, Unfract Sodium 138 Potassium 4.0 Chloride 106 Carbon Dioxide 25 BUN 36 H Creatinine 1.69 H Est GFR ( Amer) 48 L Est GFR (Non-Af Amer) 40 L BUN/Creatinine Ratio 21 Glucose 128 H POC Glucose Calculated Osmolality 296 Calcium 8.6 Blood Type Antibody Screen Crossmatch 06/28/18 06/28/18 05:33 08:10 WBC RBC Hgb 7.3 L Hct 23.7 L MCV MCH MCHC RDW Plt Count MPV PT INR Heparin Anti-Xa, Unfract 0.19 L Sodium Potassium Chloride Carbon Dioxide BUN Creatinine Est GFR ( Amer) Est GFR (Non-Af Amer) BUN/Creatinine Ratio Glucose POC Glucose Calculated Osmolality Calcium Blood Type Antibody Screen Crossmatch - ABG Interpretation ABG results: PT/INR, D-dimer PT 15.8 Seconds (9.4-12.1) H 06/28/18 05:33 Palliative Scale - Palliative Performance Scale How ambulatory is this patient?: Mainly in bed What is patient's level of activity and evidence of disease?: Unable to do most activity, Extensive disease How much self-care assistance does patient require?: Considerable assistance required How much oral intake does the patient have?: Minimal to sips What is this patient's level of consciousness?: Full or confusion Palliative Performance Score: 60 % Consult Discharge Plan - Plan Referrals: NONE,PCP [Primary Care Provider] -
[2018-06-28] MEDS ORDERED: 0.9 % Sodium Chloride 250 ML ONE (12:26)
--- NOTE | 2018-06-28 13:50 | Oncology Inp Progress Note ---
<DoylehalleyWalt - Last Filed: 06/28/18 17:31> Date of Encounter: 06/28/18 Oncology: Obj Data - Labs CBC & Chem 7: 06/28/18 08:10 06/28/18 05:33 Consult Discharge Plan - Plan Referrals: NONE,PCP [Primary Care Provider] - Inpatient Charges Provider: Dr. Siddharth Carney Follow up - Inpatient: [id number] - Attending Attestation I examined this patient and my medical decision-making was reviewed with the Advanced Practice Nurse. I agree with the documented findings, disposition and treatment plan as described except to the extent set forth below. -Low probability of a PE based on V/Q scan and CXR -Okay to d/c Heparin gtt and Coumadin at this time after reviewing imaging with radiology <Desire Gordon - Last Filed: 06/29/18 07:42> Date of Encounter: 06/29/18 Time of Encounter: 13:00 (1) Renal cell carcinoma Current Visit: No Status: Acute Assessment and plan: Metastatic renal cell carcinoma -Metastatic, poor risk, clear cell renal cell carcinoma arising from the right kidney initially diagnosed 05/04/2018. -S/p cycle #1 pembrolizumab immunotherapy -Axitinib not given yet as combination, as financial assistance is ongoing for the medication, planning for resolution soon) on 06/04/2018. -CT chest/abdomen/pelvis does show progression of lung/liver mets -Patient has evidence of aggressive malignancy that will continue to progress without treatment -Recommend treating acute issues at this time, and plan to continue current treatment regimen as outpatient -Axitinib has been approved and is now ready for delivery, this has been verified with the financial counselor Qualifiers: Qualified Code(s): C64.9 - Malignant neoplasm of unspecified kidney, except renal pelvis (2) Shortness of breath Current Visit: Yes Status: Acute Assessment and plan: Shortness of breath -Patient states symptoms have slightly improved since admission. -Unable to obtain CTA of the chest to rule out a PE due to SHIVAM -VQ scan shows no large areas of perfusion ventilation mismatch identified -CXR shows b/l pulmonary nodules, most stable in LLL. -Venous Duplex US LEs negative for DVT -Currently on heparin gtt and being bridged to Coumadin due to intermediate risk Wells score -However, we will review V/Q scan and CXR with radiology to discuss likelihood of PE -I do feel that his SOB is likely attributable to his progressive disease and pu lmonary nodules and only treatment will help alleviate his symptoms. 06/28/18: Discussed likelihood of PE with radiology. Low-probability of PE after review or VQ scan and chest X-ray. Plan: D/C Heparin and Coumadin. Oncology: Subj Interval history: Patient sleeping. at bedside. No hematachezia, no melena, or hematemesis. She notes that he has been having pain in his right arm today. He has been sleeping after receiving pain medication. She notes that he wakes up periodically and will note that he is seeing animals or people in the room that are not there. Discussed that this may been due to some of his medications. She verbalizes acceptance. - Head Head exam: Present: normal inspection, normocephalic - Respiratory Respiratory exam: Present: decreased breath sounds, rhonchi - Cardiovascular Cardiovascular exam: Present: irregular rhythm - GI/Abdominal GI/Abdominal exam: Present: normal bowel sounds, soft - Skin Skin exam: Present: dry, warm Oncology: Obj Data - Labs CBC & Chem 7: 06/29/18 01:58 06/29/18 01:58
--- NOTE | 2018-06-28 14:07 | Internal Med Progress Note ---
Hospitalist Progress Note - Encounter Date of Encounter: 06/28/18 Time of Encounter: 09:00 - Subjective Interval History: Patient was seen and examined at bedside. Continues to complain of all over body pain, he was encouraged to get up and work with physical therapy as per physical therapy documentation he has not been compliant with her treatments. W lance at bedside and answered all questions. Currently he denies chest pain, fever, nausea, vomiting or diarrhea. As per nursing staff he did have an episode of fever overnight however he is currently afebrile. I discussed with the patient and that he will likely need 1 blood transfusion due to acute anemia and we will have to continue with the heparin drip as he is Wells criteria but symmetrical risk of pulmonary embolism and his VQ scan was indeterminate. I discussed that I will further have discussions with oncology team and follow the recommendations in regards to anticoagulation. - Exam Vitals: Temp Pulse Resp BP Pulse Ox 99.3 F 91 20 134/65 92 06/28/18 13:08 06/28/18 13:08 06/28/18 13:08 06/28/18 13:08 06/28/18 13:08 Exam: NAD, speaks in full sentences RRR s1 and s2, could not appreciate murmurs, has device in the left chest decreased breathsounds bilaterally, occasional wheezing in the posterior lung turpin ( improved) moving all extremities, strength adn bulk is symmetric through out. Axox 3, no focal deficit, rapid hand movements intact, negative pronator drift, finger to nose intact Ski: extremely dry, erythematous skin all over the body-improved. - Assessment and Plan (1) Diabetes mellitus Current Visit: No Status: Chronic (2) Anemia Current Visit: No Status: Chronic (3) HTN (hypertension) Current Visit: No Status: Chronic (4) HLD (hyperlipidemia) Current Visit: No Status: Chronic (5) CAD (coronary artery disease) Current Visit: No Status: Chronic (6) DVT prophylaxis Current Visit: No Status: Acute (7) Goals of care, counseling/discussion Current Visit: Yes Status: Acute (8) Shortness of breath Current Visit: Yes Status: Acute (9) History of DVT (deep vein thrombosis) Current Visit: No Status: Chronic (10) Metastatic cancer Current Visit: Yes Status: Acute (11) Suspected pulmonary embolism Current Visit: Yes Status: Acute (12) Acute respiratory failure Current Visit: Yes Status: Acute (13) Acute kidney injury superimposed on CKD Current Visit: Yes Status: Acute (14) Carotid stenosis Current Visit: No Status: Chronic (15) Declining functional status Current Visit: Yes Status: Acute (16) Acute anemia Current Visit: Yes Status: Acute (17) Fever Current Visit: Yes Status: Acute (18) Thrombocytopenia Current Visit: Yes Status: Acute (19) Iron deficiency anemia Current Visit: Yes Status: Acute - Summary of Assessment and Plan Summary of Assessment and Plan: A/P Mr. Dawson is a 72 year old male with metastatic poor risk clear cell renal cell carcinoma arising from the right kidney initially diagnosed 05/04/2018, CAD s/p CABG, HTN and COPD presented from [facility] with worsening SOB and was admitted for acute hypoxic respiratory failure. acute hypoxic respiratory failure: ? secondary to PE vs increased pulmonary nodule. was started on heparin Drip at [place] which has been continued, unable to perform CTPA due to renal function so V/Q scan was performed and is ind eterminate for PE. wells criteria is 4 ( moderate risk) and has bled score of 1. i discussed with supervisor white sugar/oncologist commissioning agent ( Dr. rios) and he recommended to start bridging with coumadin and monitor in hospital while he is being bridged and for him to follow up as OP. Coumadin was started on 06/26. On 06/28 hemoglobin trended down 6.5, and was repeated to confirm and it trended up to 7.3 however it is a 1 g drop from his baseline so he was transfused 1 PRBC. I discussed this with hematology oncology team and the Coumadin was held and he was continued with heparin drip. Will follow hematology recommendations in regards to anticoagulation. Episode of fever overnight: Temperature was 101.4 at 11:30 PM on. Blood cultures were sent, there is no leukocytosis, CT chest abdomen and pelvis was negative for any acute infection, UA is negative. We will follow blood cultures as fever may be related to his underlying malignancy. Has been afebrile for 12 hours. ARF - retroperitoneal US/ CT A/p without evidence of hydronephrosis, UA and urine lytes are pending ( nursing staff aware) , continue with gentle hydration as , continue with gentle hydration. baseline creatinine is about 1.5 , strict I/o , continue to monitor renal functions. currently renal functions are almost back to baseline with creatinine of 1.6. metastatic poor risk clear cell renal cell carcinoma arising from the right kidney initially diagnosed 05/04/2018- CT chest , Abdomen and pelvis performed on 06/24 with worsening mets. oncology on board acute chronic anemia: H/H is about baseline of 8-9. Trended down to 6.5 and repeated to 7.3 will transfuse 1 unit of PRBC and follow H&H closely. transfuse if <8 as he has had cardiac history. hematology/oncology on board. FOBT pending iron deficiency: was transfused with venofer 300 mg as per hematology recs. compression fracture of L1: was seen by orthopedics in april 2018- was found that this is a nonoperative fracture and the treatment is very conservative. discussed with orthopedics who recommended Spine surgery to evaluate the patient- spine surgery was consulted will follow recommendations. puritis: skin is extremely dry, started on ointment to hydrate, continue with hydroxyzine, has improved carotid artery stenosis: Bilateral proximal ICA has a moderate, 40-59% stenosis. (low end), MRI head without acute stroke, OP vascular surgery follow up CAD s/p CABG: continue with BB, statins, poor nutrition: nutrition consulted will follow recs. uncontrolled pain: Palliative recommendations appreciated, continue with pain medications are palliative and colace and senna code status: i discussed code status with patient and at bedside for 15 minutes and he wishes to be full code. Palliative on board Functional decline: encouraged to continue with physical therapy and occupational therapy DVT prophylaxis: on heparin Drip and bridged with coumadin Long-term Prognosis is poor - Time Spent with Patient Total time spent is greater than 50% in coordination of care (as documented) at patient's floor/unit and/or counseling patient: 25 - 35 minutes Plan of Care Discussed with: family Internal Medicine: Result - Labs CBC & Chem 7: 06/28/18 08:10 06/28/18 05:33 Labs: Short CBC 06/28/18 06/28/18 Range/Units 05:33 08:10 WBC 6.2 (4.3-11.1) K/mcL Hgb 6.5 L D 7.3 L (12.9-16.9) g/dL Hct 21.2 L 23.7 L (37.5-50.1) % Plt Count 94 L (140-400) K/mcL BMP 06/28/18 05:33 Sodium 138 Potassium 4.0 Chloride 106 Carbon Dioxide 25 BUN 36 H Creatinine 1.69 H Glucose 128 H Calcium 8.6 - ABG Interpretation ABG results: PT/INR, D-dimer PT 15.8 Seconds (9.4-12.1) H 06/28/18 05:33 Consult Discharge Plan - Plan Referrals: NONE,PCP [Primary Care Provider] - (1) Diabetes mellitus Qualifiers: Diabetes mellitus type: type 2 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 use: without custodial use Diabetes mellitus complication status: with kidney complications Diabetes mellitus complication detail: with chronic kidney disease Chronic kidney disease stage: stage 3 (moderate) Qualified Code(s): E11.22 - Type 2 diabetes mellitus with diabetic chronic kidney disease; N18.3 - Chronic kidney disease, stage 3 (moderate) (2) Anemia Qualifiers: Anemia type: due to chronic kidney disease Chronic kidney disease stage: stage 3 (moderate) Qualified Code(s): N18.3 - Chronic kidney disease, stage 3 (moderate); D63.1 - Anemia in chronic kidney disease (3) HTN (hypertension) Qualifiers: Hypertension type: essential hypertension Qualified Code(s): I10 - Essential (primary) hypertension (4) HLD (hyperlipidemia) Qualifiers: Hyperlipidemia type: mixed hyperlipidemia Qualified Code(s): E78.2 - Mixed hyperlipidemia (5) CAD (coronary artery disease) Qualifiers: Coronary Disease-Associated Artery/Lesion type: [place] artery [place] vs. transplanted heart: [place] heart Associated angina: without angina Qualified Code(s): I25.10 - Atherosclerotic heart disease of [place] coronary artery with out angina pectoris (12) Acute respiratory failure Qualifiers: Respiratory failure complication: hypoxia Qualified Code(s): J96.01 - Acute respiratory failure with hypoxia (14) Carotid stenosis Qualifiers: Laterality: bilateral Qualified Code(s): I65.23 - Occlusion and stenosis of bilateral carotid arteries
[2018-06-28] MEDS: Heparin 25,000 UNIT/250 ML D5W 25,000 UNIT/250 ML IV.SOLN IVC SCH (14:08)
[2018-06-28 17:58] LABS: Hematocrit 25.1 % (37.5-50.1); Hemoglobin 7.8 g/dL (12.9-16.9)
[2018-06-28] MEDS: Gabapentin 100 MG CAPSULE PO SCH (20:13)
[2018-06-28] MEDS ORDERED: Ipratropium/Albuterol Neb 3 ML IH PRN (20:37)
[2018-06-29 01:49] LABS: Acinetobacter baumannii by PCR Not Detected (Not Detect); Candida albicans by PCR Not Detected (Not Detect); Candida glabrata by PCR Not Detected (Not Detect); Candida krusei by PCR Not Detected (Not Detect); Candida parapsilosis by PCR Not Detected (Not Detect); Candida tropicalis by PCR Not Detected (Not Detect); Enterobacter cloacae Cmplx PCR Not Detected (Not Detect); Enterobacteriaceae by PCR Not Detected (Not Detect); Enterococcus by PCR Not Detected (Not Detect); Escherichia coli by PCR Not Detected (Not Detect); Klebsiella oxytoca by PCR Not Detected (Not Detect); Klebsiella pneumoniae by PCR Not Detected (Not Detect); Proteus by PCR Not Detected (Not Detect); Pseudomonas aeruginosa by PCR Not Detected (Not Detect); Serratia marcescens by PCR Not Detected (Not Detect); Staphylococcus aureus by PCR DETECTED (Not Detect); Staphylococcus by PCR DETECTED (Not Detect); Streptococcus agalactiae(B)PCR Not Detected (Not Detect); Streptococcus by PCR Not Detected (Not Detect); Streptococcus pneumoniae PCR Not Detected (Not Detect); Streptococcus pyogenes (A) PCR Not Detected (Not Detect); mecA Methicillin-Resist Gene Not Detected (Not Detect)
[2018-06-29] MEDS ORDERED: *HR* Metoprolol 5 MG/5 ML VIAL IVP ONE ×2 (02:22→05:12)
--- NOTE | 2018-06-29 02:24 | Event Note ---
Date of Encounter: 06/29/18 Time of Encounter: 02:23 At approx 01:39 nurse paged me about changes in rhythm and that the pt is tacycardic. STAT EKG ordered. Pt found to be in a fib with RVR; EKG from admission unavailable as pt was transfer but noted not to be in a fib when he was admitted. HR 113 on EKG with QTc of [address] elevation BP stable in low 110's. IVP lopressor 5mg ordered. Pt denies active chest pain and is resting comfortably. Also alerted by nurse around 01:00 that the pt had (+) blood cx for gram positiv e cocci 1/2 blood cx. He had had a t max of 100.4 at 11:30PM, tmax in the last approx 24 hrs has been 101.[address] chest negaive for PNA, did show interval increase in pulmonary nodules. Abd/pelvis CT negative for acute findings. Brain MRI showed no acute intracranial abnormality. Pt doesn't got a white count and he is without complaint. Will hold off on abx until AM labs are reported at 04:00.
[2018-06-29] MEDS: Acetaminophen 325 MG TABLET PO PRN ×2 (02:32→11:59)
[2018-06-29 03:01] LABS: Hemoglobin 8.3 g/dL (12.9-16.9); Mean Corpuscular HGB Conc 30.7 g/dL (31.6-35.5); Mean Corpuscular Hemoglobin 29.3 pg (28.0-33.3); Mean Corpuscular Volume 95.4 fL (83.0-100.0); Mean Platelet Volume 12.6 fL (9.4-12.4); Platelet Count 111 K/mcL (140-400); Red Blood Count 2.83 M/mcL (4.19-5.50)
[2018-06-29 03:08] LABS: INR 1.6; Prothrombin Time 17.9 Seconds (9.4-12.1)
[2018-06-29 03:21] LABS: Calcium 8.6 mg/dL (8.6-10.3); Potassium 4.2 mEq/L (3.5-5.1)
[2018-06-29] MEDS: Insulin LISPRO 300 UNITS/3 ML VIAL SQ SCH ×2 (07:56→11:30)
[2018-06-29] MEDS ORDERED: 0.9 % Sodium Chloride 1,000 ML IVC SCH ×2 (08:30→14:55)
[2018-06-29] MEDS: Loratadine 10 MG TABLET PO SCH (09:09)
[2018-06-29] MEDS: *HR* OxyCODONE Immed Rel 5 MG TABLET PO PRN ×2 (09:09→14:08)
[2018-06-29] MEDS: Sennosides 8.6 MG TABLET PO SCH (09:09)
[2018-06-29] MEDS: Fenofibrate 54 MG TABLET PO SCH (09:09)
--- NOTE | 2018-06-29 10:16 | Internal Med Progress Note ---
Hospitalist Progress Note - Encounter Date of Encounter: 06/29/18 Time of Encounter: 09:30 - Subjective Interval History: Patient was seen and examined at bedside. Appears more ill and. He is sleepy. Reports that his bilateral shoulder pains are worsening and especially the right shoulder pain keeps him from using his right arm. As per at bedside he has had pain in bilateral shoulders for some time however it has been worsening since hospitalization. Discussed with both patient and that his blood cultures are positive for staph aureus and that he has started on antibiotics, I discussed that we will get an echocardiogram to rule out vegetations. Discussed that we will get bilateral shoulder x-rays to rule out any pathology or fract ures there and agreement. I also discussed that the patient was found to have atrial fibrillation and we typically place patients on anticoagulation for stroke prophylaxis however given his recent acute on chronic anemia requiring blood transfusion on 06/28 they would like to hold off until he was found to have stable hemoglobin and hematocrit to consider restarting him on anticoagulation. I discussed that I will also treat the sepsis and will follow heart rate closely on telemetry. I again discussed that he has multiple medical problems some are improving however he now has sepsis with staph aureus and his condition is critical. understands the prognosis is poor they would like the patient to be full code. Currently the patient denies any fever or chills has had no chest pain and c annot tell if he has any palpitations. He complains of allover body pain especially in the bilateral shoulders which is exacerbated by movement and is dull and achy in nature. He denies loss of bowel or bladder control denies back pain denies loss of function of his lower extremities. - Exam Vitals: Temp Pulse Resp BP Pulse Ox 99.4 F 124 20 125/63 93 06/29/18 09:04 06/29/18 09:04 06/29/18 09:04 06/29/18 09:04 06/29/18 09:04 Exam: NAD, speaks in full sentences, looks ill Irregularly irregular, s1 and s2, could not appreciate murmurs, has device in the left chest decreased breathsounds bilaterally, occasional wheezing in the posterior lung turpin ( improved) Moving bilateral lower extremities, bulk is symmetric in the bilateral lower extremity and upper extremities. Range of motion has reduced significantly since admission in the bilateral upper extremities right greater than left, sensation is intact in all extremities. Axox 3, no focal deficit, has occasional twitching of the bilateral upper extremities which he stated it was chronic. Ski: extremely dry, erythematous skin all over the body-improved. - Assessment and Plan (1) Diabetes mellitus Current Visit: No Status: Chronic (2) Anemia Current Visit: No Status: Chronic (3) HTN (hypertension) Current Visit: No Status: Chronic (4) HLD (hyperlipidemia) Current Visit: No Status: Chronic (5) CAD (coronary artery disease) Current Visit: No Status: Chronic (6) DVT prophylaxis Current Visit: No Status: Acute (7) Goals of care, counseling/discussion Current Visit: Yes Status: Acute (8) Shortness of breath Current Visit: Yes Status: Acute (9) History of DVT (deep vein thrombosis) Current Visit: No Status: Chronic (10) Metastatic cancer Current Visit: Yes Status: Acute (11) Suspected pulmonary embolism Current Visit: Yes Status: Acute (12) Acute respiratory failure Current Visit: Yes Status: Acute (13) Acute kidney injury superimposed on CKD Current Visit: Yes Status: Acute (14) Carotid stenosis Current Visit: No Status: Chronic (15) Declining functional status Current Visit: Yes Status: Acute (16) Acute anemia Current Visit: Yes Status: Acute (17) Fever Current Visit: Yes Status: Acute (18) Thrombocytopenia Current Visit: Yes Status: Acute (19) Iron deficiency anemia Current Visit: Yes Status: Acute (20) Staphylococcus aureus bacteremia with sepsis Current Visit: Yes Status: Acute (21) HFrEF (heart failure with reduced ejection fraction) Current Visit: Yes Status: Acute - Summary of Assessment and Plan Summary of Assessment and Plan: A/P Mr. Dawson is a 72 year old male with metastatic poor risk clear cell renal cell carcinoma arising from the right kidney initially diagnosed 05/04/2018, CAD s/p CABG, HTN and COPD presented from [facility] with worsening SOB and was admitted for acute hypoxic respiratory failure. acute hypoxic respiratory failure: secondary to increased pulmonary nodules. was started on heparin Drip at [place] which has been continued, unable to perform CTPA due to renal function so V/Q scan was performed and is indeterminate for PE. wells criteria is 4 ( moderate risk) and has bled score of 1. i discussed with park warden/oncologist architecture consultant ( Dr. kaduri) and he recommended to start bridging with coumadin and monitor in hospital while he is being bridged and for him to follow up as OP. Coumadin was started on 06/26. On 06/28 hemoglobin trended down 6.5, and was repeated to confirm and it trended up to 7.3, he was transfused 1 PRBC. radiology was contacted by the oncology team and V/Q scan was reevaluated and it was found that it was low probability and all AC was stopped on 06/28 as per heme/onc recommendations. CXR ordered will follow staph aureus bacteremia: developed fever on 06/27- Blood cultures x 2 positive from 06/28. CT chest abdomen and pelvis was negative for any acute infection, UA is negative. TTE ordered to rule out vegetations, ID consulted sepsis secondary to above: blood cx positive x2, negative for MRSA was started on cefazolin, management as above. first detected Atrial fib: was found to be in Atrial fibrillation overnight most likely secondary to sepsis from staph aureus bacteremia, TTE, TSH pending continue with home BB and will treat the underlying source ( sepsis) - ChadsVAsc is 4, i discussed with patient and who understand that he is at increased risk for stroke but given his recent acute on chronic anemia requiring transfusion they would like to hold off of AC for now. has pacemaker which will need to be removed most likely. cardiology consulted. HFrEF 40%- was confirmed on TTE from 06/23 (EF similar to previous TTE from april)- has pacemaker in place. will follow CXR from today. continue with IVF as he is septic watch for fluid overload. continue with coreg, not on ARB - will consider if renal functions and sepsis has resolved. 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 oncology on board acute chronic anemia: H/H is about baseline of 8-9. Trended down to 6.5 and repeated to 7.3 s/p 1 PRBC on 06/28. transfuse if <8 as he has had cardiac history. hematology/oncology on board. FOBT pending iron deficiency: was transfused with venofer 300 mg as per hematology recs. compression fracture of L1: was seen by orthopedics in april 2018- was found that this is a nonoperative fracture and the treatment is very conservative. discussed with orthopedics who recommended Spine surgery to evaluate the patient- spine surgery was consulted will follow recommendations. ARF - retroperitoneal US/ CT A/p without evidence of hydronephrosis, UA and urine lytes are pending ( nursing staff aware), continue with gentle hydration as , continue with gentle hydration. baseline creatinine is about 1.5 , strict I/o , continue to monitor renal functions. resolved creatinine is 1.46 carotid artery stenosis: Bilateral proximal ICA has a moderate, 40-59% stenosis. (low end), MRI head without acute stroke, OP vascular surgery follow up puritis: skin is extremely dry, started on ointment to hydrate, continue with hydroxyzine, has improved CAD s/p CABG: continue with BB, statins, bilateral shoulder pain: most likely secondary to osteoarthritis ( shoulder xrays performed on 06/29 confirm osteoarthritis) - continue PT, pain control as below. poor nutrition: was started on mirtazipine by palliative, nutrition consulted will follow recs. uncontrolled pain: Palliative recommendations appreciated, continue with pain medications are palliative and colace and senna code status: i discussed code status with patient and at bedside again on 06/29 and discussed that his prognosis is poor. they wish that he remain full code. Palliative on board Functional decline: encouraged to continue with physical therapy and occupational therapy DVT prophylaxis: scds Long-term Prognosis is poor - Time Spent with Patient Total time spent is greater than 50% in coordination of care (as documented) at patient's floor/unit and/or counseling patient: Greater than 35 minutes Internal Medicine: Result - Labs CBC & Chem 7: 06/29/18 01:58 06/29/18 01:58 Labs: Short CBC 06/28/18 06/29/18 Range/Units 17:33 01:58 WBC 7.7 (4.3-11.1) K/mcL Hgb 7.8 L 8.3 L (12.9-16.9) g/dL Hct 25.1 L 27.0 L (37.5-50.1) % Plt Count 111 L (140-400) K/mcL BMP 06/29/18 01:58 Sodium 139 Potassium 4.2 Chloride 104 Carbon Dioxide 25 BUN 37 H Creatinine 1.46 H Glucose 90 Calcium 8.6 - ABG Interpretation ABG results: PT/INR, D-dimer PT 17.9 Seconds (9.4-12.1) H 06/29/18 01:58 - Impressions Impressions Shoulder X-Ray 06/29/18 09:05 IMPRESSION: 1. No acute findings in the shoulders. 2. Osteoarthritic changes of the bilateral acromioclavicular and glenohumeral joints as above, more severe on the right. D/ / Bethel Olmedo MD / Bethel Olmedo MD Interpreting Provider: Bethel Olmedo MD Shoulder X-Ray 06/29/18 09:05 IMPRESSION: 1. No acute findings in the shoulders. 2. Osteoarthritic changes of the bilateral acromioclavicular and glenohumeral joints as above, more severe on the right. 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: without terminal operations manager use Diabetes mellitus complication status: with kidney complications Diabetes mellitus complication detail: with chronic kidney disease Chronic kidney disease stage: stage 3 (moderate) Qualified Code(s): E11.22 - Type 2 diabetes mellitus with diabetic chronic kidney disease; N18.3 - Chronic kidney disease, stage 3 (moderate) (2) Anemia Qualifiers: Anemia type: due to chronic kidney disease Chronic kidney disease stage: stage 3 (moderate) Qualified Code(s): N18.3 - Chronic kidney disease, stage 3 (moderate); D63.1 - Anemia in chronic kidney disease (3) HTN (hypertension) Qualifiers: Hypertension type: essential hypertension Qualified Code(s): I10 - Essential (primary) hypertension (4) HLD (hyperlipidemia) Qualifiers: Hyperlipidemia type: mixed hyperlipidemia Qualified Code(s): E78.2 - Mixed hyperlipidemia (5) CAD (coronary artery disease) Qualifiers: Coronary Disease-Associated Artery/Lesion type: [place] artery [place] vs. transplanted heart: [place] heart Associated angina: without angina Qualified Code(s): I25.10 - Atherosclerotic heart disease of [place] coronary artery without angina pectoris (12) Acute respiratory failure Qualifiers: Respiratory failure complication: hypoxia Qualified Code(s): J96.01 - Acute respiratory failure with hypoxia (14) Carotid stenosis Qualifiers: Laterality: bilateral Qualified Code(s): I65.23 - Occlusion and stenosis of bilateral carotid arteries
--- NOTE | 2018-06-29 11:04 | Electrocardiograph Report ---
[address] [address] Test Date: 2018-06-29 Pat Name: Fabian Dawson Department: 112 Room: 2A Gender: M [employer]ro[employer] Machine Corder: : 1945 Requested By: Marlo Espinal Order Number: [id number] Reading MD: Maulik Coronado Measurements Intervals [place] Rate: 108 P: NE: 0 QRS: 78 QRSD: 154 T: -31 QT: 350 QTc: 414 Interpretive Statements ATRIAL FIBRILLATION WITH RAPID VENTRICULAR RESPONSE RIGHT BUNDLE BRANCH BLOCK Electronically Signed On 06-29-2018 11:02:55 EDT by Maulik Coronado
[2018-06-29 11:22] LABS: ABG Base Excess 2 mEq/L (-2 to 3); ABG HCO3 27 mEq/L (21-27); ABG Oxygen Saturation 87 % (95-98); ABG PCO2 44 mmHg (35-45); ABG PO2 53 mmHg (85-104); ABG TCO2 29 mEq/L (20-26)
[2018-06-29 11:30] VITALS: BP 106/57
--- NOTE | 2018-06-29 12:55 | Palliative Progress Note ---
Date of Encounter: 06/29/18 Time of Encounter: 11:00 - Assessment and plan (1) Pain Current Visit: Yes Status: Acute Assessment and plan: Continue Oxycodone PRN. Utilized 10mg x1 and 5mg x2 last 24 hours. MOnitor. (2) Lack of appetite Current Visit: Yes Status: Acute (3) Goals of care, counseling/discussion Current Visit: Yes Status: Acute Assessment and plan: Discussed patient deteriorating condition with at bedside. Aware of sepsis findings. Discussed code status again, and had discussed with patient earlier. Stated he does not want on life support or heroic measures. Discussed transition to DNR/DNI - no CPR/ACLS for cardiac arrest, and DNI. Code status changed. awaiting other family to arrive to d/w hospitalist transfer to [facility] vs transitioning to comfort care. (4) Acute kidney injury superimposed on CKD Current Visit: Yes Status: Acute (5) Metastatic cancer Current Visit: Yes Status: Acute (6) Palliative care encounter Current Visit: Yes Status: Acute (7) Severe sepsis Current Visit: Yes Status: Acute Assessment and plan: Patient with 2/2 + blood cultures, fever, tachycardia, tachypnea. Vancomycin was added during the night - Time Spent With Patient Total time spent is greater than 50% in coordination of care (as documented) at patient's floor/unit and/or counseling patient: - Subjective Interval history: Patient with deteriorating condition overnight. Tachycardic - afib RVR, resident hospitalist treated. 2/2 + blood cultures, febrile, tachypneic now as well. Appears a little more confused and mental status waxing and waning. at bedside. - Constitutional Vitals: Abnormal lab results RBC 2.83 M/mcL (4.19-5.50) L 06/29/18 01:58 Hgb 8.3 g/dL (12.9-16.9) L 06/29/18 01:58 Hct 27.0 % (37.5-50.1) L 06/29/18 01:58 MCHC 30.7 g/dL (31.6-35.5) L 06/29/18 01:58 RDW 15.0 % (11.5-14.5) H 06/29/18 01:58 Plt Count 111 K/mcL (140-400) L 06/29/18 01:58 MPV 12.6 fL (9.4-12.4) H 06/29/18 01:58 PT 17.9 Seconds (9.4-12.1) H 06/29/18 01:58 Heparin Anti-Xa, Unfract 0.20 IU/mL (0.30-0.70) L 06/28/18 12:56 ABG pO2 53 mmHg (85-104) L 06/29/18 11:18 ABG Total CO2 29 mEq/L (20-26) H 06/29/18 11:18 ABG O2 Saturation 87 % (95-98) L 06/29/18 11:18 Chloride 108 mEq/L (98-107) H 06/26/18 04:12 BUN 37 mg/dL (8-23) H 06/29/18 01:58 1.46 mg/dL (0.70-1.30) H 06/29/18 01:58 Est GFR ( Amer) 57 (> 60) L 06/29/18 01:58 Est GFR (Non-Af Amer) 47 (> 60) L 06/29/18 01:58 Glucose 128 mg/dL (70-105) H 06/28/18 05:33 POC Glucose 160 mg/dL (70-99) H 06/28/18 19:24 303 (280-300) H 06/25/18 01:45 Calcium 8.3 mg/dL (8.6-10.3) L 06/26/18 04:12 Venous Ioniz Calcium 1.04 mmol/L (1.15-1.35) L 06/24/18 01:00 Iron 22 mcg/dL (65-175) L 06/25/18 13:34 % Saturation 10 % (20-55) L 06/25/18 13:34 160 mg/dL (203-362) L 06/25/18 13:34 452 ng/mL (20-250) H 06/25/18 13:34 5.8 g/dL (6.4-8.9) L 06/25/18 01:45 3.1 g/dL (3.5-5.7) L 06/25/18 01:45 18.3 ng/mL (3.0-16.0) H 06/25/18 13:34 Staphylococcus sp PCR DETECTED (Not Detect) A 06/28/18 11:14 Staph aureus (PCR) DETECTED (Not Detect) A 06/28/18 11:14 Crossmatch See Detail 06/24/18 01:53 General appearance: Present: mild distress - Respiratory Respiratory exam: Present: decreased breath sounds Additional comments: Exp wheezes throughout - Cardiovascular Cardiovascular exam: Present: irregular rhythm, tachycardia - GI/Abdominal GI/Abdominal exam: Present: diminished bowel sounds, distended, soft - Extremities Exam Extremities exam: Present: normal capillary refill, normal inspection - Neurological Exam Neurological exam: Present: altered, strengths equal and symetr throughout Additional comments: Oriented to person/place, making inappropriate statements at times. Having some hallucinations - Skin Skin exam: Present: dry, pallor, warm Palliative Quality Palliative Quality: Screen for Code Status: Yes, Screen for Goals of Care: Yes, Screen for Pain: Yes, If Pain Regimen Started, Initiate Bowel Regimen: NA, Screen for Nausea/Vomitting: Yes Code Status: 06/23/18 23:20 Resuscitation Status: Active [RES] Routine Comment: Resuscitation Status: Full Code 06/29/18 11:17 DNR [Resuscitation Status: Active] [RES] Routine Comment: Resuscitation Status: [id number] - Labs CBC & Chem 7: 06/29/18 01:58 06/29/18 01:58 Labs: Laboratory Results - last 24 hr 06/24/18 06/28/18 06/28/18 01:53 11:14 12:56 WBC RBC Hgb Hct MCV MCH MCHC RDW Plt Count MPV PT INR Heparin Anti-Xa, Unfract 0.20 L ABG pH ABG pCO2 ABG pO2 ABG HCO3 ABG Total CO2 ABG O2 Saturation ABG Base Excess Inspired O2 Sodium Potassium Chloride Carbon Dioxide BUN Creatinine Est GFR ( Amer) Est GFR (Non-Af Amer) BUN/Creatinine Ratio Glucose POC Glucose Calculated Osmolality Lactic Acid Calcium A. baumannii (PCR) Not Detected Pippa albicans (PCR) Not Detected C. glabrata (PCR) Not Detected C. krusei (PCR) Not Detected C. parapsilosis (PCR) Not Detected C. tropicalis (PCR) Not Detected Enterobacteriac sp PCR Not Detected E. cloacae complex PCR Not Detected Enterococcus sp PCR Not Detected E. coli (PCR) Not Detected H. influenzae (PCR) Not Detected Klebsiella oxytoca PCR Not Detected Klebsiella pneumoniae Not Detected List. monocytogenes PCR Not Detected N. meningitidis (PCR) Not Detected Proteus species (PCR) Not Detected Serratia marcescens PCR Not Detected Staphylococcus sp PCR DETECTED A Staph aureus (PCR) DETECTED A mecA-Methicil Res Gene Not Detected Streptococcus sp PCR Not Detected Group A Strep DNA Not Detected Group B Strep (PCR) Not Detected Strep pneumoniae (PCR) Not Detected P. aeruginosa (PCR) Not Detected Juaquin/B-Vanco Res Genes N/A KPC (blaKPC) Detect PCR N/A Blood Type O NEGATIVE Antibody Screen NEGATIVE Crossmatch See Detail 06/28/18 06/28/18 06/28/18 16:08 17:33 19:24 WBC RBC Hgb 7.8 L Hct 25.1 L MCV MCH MCHC RDW Plt Count MPV PT INR Heparin Anti-Xa, Unfract ABG pH ABG pCO2 ABG pO2 ABG HCO3 ABG Total CO2 ABG O2 Saturation ABG Base Excess Inspired O2 Sodium Potassium Chloride Carbon Dioxide BUN Creatinine Est GFR ( Amer) Est GFR (Non-Af Amer) BUN/Creatinine Ratio Glucose POC Glucose 100 H 160 H Calculated Osmolality Lactic Acid Calcium A. baumannii (PCR) Pippa albicans (PCR) C. glabrata (PCR) C. krusei (PCR) C. parapsilosis (PCR) C. tropicalis (PCR) Enterobacteriac sp PCR E. cloacae complex PCR Enterococcus sp PCR E. coli (PCR) H. influenzae (PCR) Klebsiella oxytoca PCR Klebsiella pneumoniae List. monocytogenes PCR N. meningitidis (PCR) Proteus species (PCR) Serratia marcescens PCR Staphylococcus sp PCR Staph aureus (PCR) mecA-Methicil Res Gene Streptococcus sp PCR Group A Strep DNA Group B Strep (PCR) Strep pneumoniae (PCR) P. aeruginosa (PCR) Juaquin/B-Vanco Res Genes KPC (blaKPC) Detect PCR Blood Type Antibody Screen Crossmatch 06/29/18 06/29/18 06/29/18 01:58 01:58 01:58 WBC 7.7 RBC 2.83 L Hgb 8.3 L Hct 27.0 L MCV 95.4 MCH 29.3 MCHC 30.7 L RDW 15.0 H Plt Count 111 L MPV 12.6 H PT 17.9 H INR 1.6 Heparin Anti-Xa, Unfract ABG pH ABG pCO2 ABG pO2 ABG HCO3 ABG Total CO2 ABG O2 Saturation ABG Base Excess Inspired O2 Sodium 139 Potassium 4.2 Chloride 104 Carbon Dioxide 25 BUN 37 H Creatinine 1.46 H Est GFR ( Amer) 57 L Est GFR (Non-Af Amer) 47 L BUN/Creatinine Ratio 25 Glucose 90 POC Glucose Calculated Osmolality 296 Lactic Acid Calcium 8.6 A. baumannii (PCR) Pippa albicans (PCR) C. glabrata (PCR) C. krusei (PCR) C. parapsilosis (PCR) C. tropicalis (PCR) Enterobacteriac sp PCR E. cloacae complex PCR Enterococcus sp PCR E. coli (PCR) H. influenzae (PCR) Klebsiella oxytoca PCR Klebsiella pneumoniae List. monocytogenes PCR N. meningitidis (PCR) Proteus species (PCR) Serratia marcescens PCR Staphylococcus sp PCR Staph aureus (PCR) mecA-Methicil Res Gene Streptococcus sp PCR Group A Strep DNA Group B Strep (PCR) Strep pneumoniae (PCR) P. aeruginosa (PCR) Juaquin/B-Vanco Res Genes KPC (blaKPC) Detect PCR Blood Type Antibody Screen Crossmatch 06/29/18 06/29/18 06/29/18 07:30 10:10 11:18 WBC RBC Hgb Hct MCV MCH MCHC RDW Plt Count MPV PT INR Heparin Anti-Xa, Unfract ABG pH 7.40 ABG pCO2 44 ABG pO2 53 L ABG HCO3 27 ABG Total CO2 29 H ABG O2 Saturation 87 L ABG Base Excess 2 Inspired O2 1.0 Sodium Potassium Chloride Carbon Dioxide BUN Creatinine Est GFR ( Amer) Est GFR (Non-Af Amer) BUN/Creatinine Ratio Glucose POC Glucose 94 Calculated Osmolality Lactic Acid 0.7 Calcium A. baumannii (PCR) Pippa albicans (PCR) C. glabrata (PCR) C. krusei (PCR) C. parapsilosis (PCR) C. tropicalis (PCR) Enterobacteriac sp PCR E. cloacae complex PCR Enterococcus sp PCR E. coli (PCR) H. influenzae (PCR) Klebsiella oxytoca PCR Klebsiella pneumoniae List. monocytogenes PCR N. meningitidis (PCR) Proteus species (PCR) Serratia marcescens PCR Staphylococcus sp PCR Staph aureus (PCR) mecA-Methicil Res Gene Streptococcus sp PCR Group A Strep DNA Group B Strep (PCR) Strep pneumoniae (PCR) P. aeruginosa (PCR) Juaquin/B-Vanco Res Genes KPC (blaKPC) Detect PCR Blood Type Antibody Screen Crossmatch 06/29/18 11:24 WBC RBC Hgb Hct MCV MCH MCHC RDW Plt Count MPV PT INR Heparin Anti-Xa, Unfract ABG pH ABG pCO2 ABG pO2 ABG HCO3 ABG Total CO2 ABG O2 Saturation ABG Base Excess Inspired O2 Sodium Potassium Chloride Carbon Dioxide BUN Creatinine Est GFR ( Amer) Est GFR (Non-Af Amer) BUN/Creatinine Ratio Glucose POC Glucose 88 Calculated Osmolality Lactic Acid Calcium A. baumannii (PCR) Pippa albicans (PCR) C. glabrata (PCR) C. krusei (PCR) C. parapsilosis (PCR) C. tropicalis (PCR) Enterobacteriac sp PCR E. cloacae complex PCR Enterococcus sp PCR E. coli (PCR) H. influenzae (PCR) Klebsiella oxytoca PCR Klebsiella pneumoniae List. monocytogenes PCR N. meningitidis (PCR) Proteus species (PCR) Serratia marcescens PCR Staphylococcus sp PCR Staph aureus (PCR) mecA-Methicil Res Gene Streptococcus sp PCR Group A Strep DNA Group B Strep (PCR) Strep pneumoniae (PCR) P. aeruginosa (PCR) Juaquin/B-Vanco Res Genes KPC (blaKPC) Detect PCR Blood Type Antibody Screen Crossmatch - Impressions Impressions Shoulder X-Ray 06/29/18 09:05 IMPRESSION: 1. No acute findings in the shoulders. 2. Osteoarthritic changes of the bilateral acromioclavicular and glenohumeral joints as above, more severe on the right. D/ / Bethel Olmedo MD / Bethel Olmedo MD Interpreting Provider: Bethel Olmedo MD Shoulder X-Ray 06/29/18 09:05 IMPRESSION: 1. No acute findings in the shoulders. 2. Osteoarthritic changes of the bilateral acromioclavicular and glenohumeral joints as above, more severe on the right. D/ / Bethel Olmedo MD / Bethel Olmedo MD Interpreting Provider: Bethel Olmedo MD Chest X-Ray 06/29/18 10:29 IMPRESSION: Interval development of mildly prominent interstitial changes seen in the left mid lung field laterally and at the lung bases, with a trace left pleural effusion at the costophrenic sulcus. This may be related to mild vascular congestion and interstitial edema. D/ / Rhett Oscar MD / Rhett Oscar MD Interpreting Provider: Rhett Oscar MD - ABG Interpretation ABG results: ABG ABG pH 7.40 pH Units (7.32-7.45) 06/29/18 11:18 ABG pCO2 44 mmHg (35-45) 06/29/18 11:18 ABG pO2 53 mmHg (85-104) L 06/29/18 11:18 ABG O2 Saturation 87 % (95-98) L 06/29/18 11:18 PT/INR, D-dimer PT 17.9 Seconds (9.4-12.1) H 06/29/18 01:58 Palliative Scale - Palliative Performance Scale How ambulatory is this patient?: Mainly in bed What is patient's level of activity and evidence of disease?: Unable to do most activity, Extensive disease How much self-care assistance does patient require?: Considerable assistance required How much oral intake does the patient have?: Minimal to sips What is this patient's level of consciousness?: Full or confusion Palliative Performance Score: 60 % Consult Discharge Plan - Plan Referrals: NONE,PCP [Primary Care Provider] -
--- NOTE | 2018-06-29 13:27 | Oncology Inp Progress Note ---
<Walt Carney - Last Filed: 06/29/18 17:00> Date of Encounter: 06/29/18 Time of Encounter: 17:00 Oncology: Obj Data - Labs CBC & Chem 7: 06/29/18 01:58 06/29/18 01:58 Consult Discharge Plan - Plan Referrals: NONE,PCP [Primary Care Provider] - Inpatient Charges Provider: Dr. Siddharth Carney Follow up - Inpatient: [id number] - Attending Attestation I examined this patient and my medical decision-making was reviewed with the Advanced Practice Nurse. I agree with the documented findings, disposition and treatment plan as described except to the extent set forth below. -2/2 blood cultures positive for S. Aureus -Patient with deteriorating clinical condition and AMS -Family does not wish to pursue any aggressive measures at this time, and would like to proceed with inpatient hospice. -We will sign off at this time, please call us with any questions. 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 S/P cycle #1 pembrolizumab immunotherapy (Axitinib not given yet as combination, as financial assistance is ongoing for the medication, planning for resolution soon) on 06/04/2018. CT chest/abdomen/pelvis does show progression of lung/liver mets Plan: Patient has evidence of aggressive malignancy that has radiographically progressed since last imaging At this time, he has acute issues and decline in mental as well as functional status precluding further treatment, I did discuss this with today Patients is waiting on family to arrive to consider transfer to tertiary care center for continued aggressive treatment and pacemaker retrieval vs. transition to comfort care Per patients discussion with , he wishes to be made a DNR DNI Qualifiers: Qualified Code(s): C64.9 - Malignant neoplasm of unspecified kidney, except renal pelvis (2) Shortness of breath Status: Acute Assessment and plan: 06/28/18: Discussed likelihood of PE with radiology. Low-probability of PE after review or VQ scan and chest X-ray. Plan: D/C Heparin and Coumadin. SOB may also be atrributed to progression of disease (3) Acute kidney injury superimposed on CKD Status: Acute Assessment and plan: Improving with gentle hydration and renal protective strategy RP US-No evidence of hydronephrosis, Bilateral renal masses corresponding to renal cell carcinomas (4) Staphylococcus aureus bacteremia with sepsis Status: Acute Assessment and plan: Developed fever and tachycardia 5/20-Blood cultures x [address] chest abdomen and pelvis was negative for any acute infection, UA is negative. TTE pending Van started ID consulted Recommending transfer to tertiary care center for removal of pacemaker hardware Patients is considering options of transfer vs. comfort care and wishing to discuss further with family Prognosis is guarded UPDATE: Following further discussion with primary team later in day, patients and family made decision to not transfer to tertiary care center and to transition to comfort care. He has transitioned to [facility]. At this time, he is resting comfortably in bed but does not respond to tactile or verbal stimuli. Verbal support provided to patients and family at bedside. We will otherwise plan to sign off as patients will continue to work with the palliative care team for symptomatic management as he appears to be actively passing. Oncology: Subj Interval history: Mr. Dawson is resting in bed, his at bedside. Assessed patient with Neda Burden, Palliative Care MORPHOLOGY TEACHER who is also at patients bedside. Mr. Dawson has clinically declined over weekend. He is septic and has had 2/2 blood cultures + Staph. aureus. He is confused currently and does not participate much in conversation but mental status has waxed and waned. His at bedside did state that earlier today he was coherent and they discussed code status, he does not wish to have CPR/Intubation should he continue to decline, Neda will place these orders. Family will soon be arriving to room. Patients is deciding about potential transfer to tertiary care [facility] to have his pacemaker further evaluated in light of his Staph. bacteremia - Constitutional General appearance: no acute distress, no febrile Exam: confused, does not follow commands well or actively participate in conversation - ENT ENT exam: Present: mucous membranes moist, normal oropharynx - Respiratory Respiratory exam: Present: decreased breath sounds, CTAB. Absent: respiratory distress - Cardiovascular Cardiovascular exam: Present: RRR, tachycardia - GI/Abdominal GI/Abdominal exam: Present: normal bowel sounds, soft. Absent: tenderness - Extremities Exam Extremities exam: Present: normal inspection. Absent: calf tenderness - Neurological Exam Neurological exam: Present: alert, no focal deficits - Psychiatric Psychiatric exam: Present: anxious - Skin Skin exam: Present: dry, normal color, warm Additional comments: skin peeling to arms/chest due to dry skin Oncology: Obj Data - Labs CBC & Chem 7: 06/29/18 01:58 06/29/18 01:58 Inpatient Charges Provider: Dr. Siddharth Carney
--- NOTE | 2018-06-29 13:47 | Pain Management Consultation ---
Date of Encounter: 06/29/18 Time of Encounter: 20:44 Assessment and Plan (1) Compression fracture of L1 lumbar vertebra Status: Chronic plan in my other note from today. Qualifiers: Encounter type: initial encounter Qualified Code(s): S32.010A - Wedge compression fracture of first lumbar vertebra, initial encounter for closed fracture History of Present Illness Chief complaint: back pain HPI: Mr. Dawson is a 72 year old male Past Med Surg Social Fam HX - Past Medical History Medical history: coronary artery disease, diabetes, hyperlipidemia, hypertension, other Additional medical history: CAROTID STENOSIS Psychiatric history: anxiety, depression - Past Surgical History Surgical History: angioplasty/stent, coronary bypass (CABG) - Social History Smoking Status: Former smoker Smokeless Tobacco Status: No Alcohol use: none Drug use: none - Family History Mother Living Status: Hx Family Cardiac Disorders: Yes Father Living Status: Hx Family Cardiac Disorders: No Medications and Allergies Cetirizine HCl [Zyrtec] 10 mg PO DAILY 04/03/17 [History] Simvastatin [Zocor] 40 mg PO HS 04/03/17 [History] Carvedilol [Coreg] 3.125 mg PO BIDWM #60 tablet 04/07/17 [Rx] Fenofibrate Nanocrystallized [Fenofibrate] 160 mg PO DAILY 05/03/18 [History] Guaifenesin [Mucinex] 400 mg PO DAILY 06/04/18 [History] HYDROcodone/Acet 5/325 mg [[place] 5-325 mg] 1 tab PO Q8H PRN 06/04/18 [History] Levalbuterol HCl [Xopenex] 1.25 mg IH Q6HR PRN #10 vial.neb 06/04/18 [Rx] Axitinib [Inlyta] 5 mg PO BID #60 tablet 06/08/18 [Rx] HydrOXYzine 10 mg PO TID PRN #30 tablet 06/16/18 [Rx] Calamine/Zinc oxide Lotion [Caladryl Lotion] 1 appl TP QID PRN bottle 06/29/18 [Rx] Docusate [Colace] 100 mg PO DAILY PRN capsule 06/29/18 [Rx] Lidocaine Patch [Lidoderm 5% patch] 1 each TP DAILY adh..patch 06/29/18 [Rx] Mirtazapine [Remeron] 7.5 mg PO HS tablet 06/29/18 [Rx] Ondansetron [Zofran] 4 mg IVP Q8HR PRN vial 06/29/18 [Rx] Allergy/AdvReac Type Severity Reaction Status Date / Time codeine Allergy See Verified 06/04/18 09:37 Comments Review of Systems - Constitutional Constitutional ROS IM: no photophobia, no phonophobia, no daytime sleepiness, no fever(s), no stops breathing during sleep - EENT Nose, mouth and throat: no headache(s), no neck pain, no neck trauma - Cardiovascular Cardiovascular ROS: no chest pain, no leg edema, no lightheadedness - Respiratory Respiratory: no pain on inspiration, no pain with cough - Gastrointestinal Gastrointestinal: no abdominal pain, no constipation, no diarrhea, no heartburn - Genitourinary Genitourinary ROS: no difficulty urinating, no flank pain, no urinary hesitancy - Musculoskeletal Musculoskeletal ROS: no muscle weakness, no numbness, no radiating pain into limb, no tingling - Integumentary Integumentary: no erythema, no lesions, no swelling - Neurological Neurological ROS: no abnormal gait, no behavioral changes, no focal weakness, no radicular pain - Psychiatric Psychiatric general: no anxiety, no confusion, no depression - Hematologic/Lymphatic Hematologic/Lymphatic pediatric: no easy bleeding, no easy bruising Physical Exam Initial Vital Signs Temp Pulse Resp BP Pulse Ox 97.6 F 74 18 117/68 98 06/23/18 22:00 06/23/18 22:00 06/23/18 22:00 06/23/18 22:00 06/23/18 22:00 - Additional Findings EYES:: pupils equal and round, no myosis. SKIN:: no areas of echymoses or petechiae CARDIOVASCULAR:: regular rate and rhythm, no murmurs PULMONARY:: lung turpin clear to auscultation bilaterally. Quiet, normal respiratory pattern. GASTROINTESTINAL:: active bowel sounds. MUSCULOSKELETAL GAIT:: antalgic. INSPECTION:: no surgical scarring PALPATION:: paraspinous musculature is tender to deep palpation in the lumbar area bilaterally. ROM:: Active flexion and extension are reduced in the lumbar area. Active Rotation is reduced in the lumbar area. Facet loading positions (extension with sidebending and rotation) are positive in the lumbar area. STRENGTH:: RIGHT hip flexors: 5/5 :: LEFT hip flexors: 5/5 RIGHT hip adduction 5/5 :: LEFT hip adduction 5/5 RIGHT hip abduction 5/5 :: LEFT hip abduction 5/5 RIGHT knee extension 5/5 :: LEFT knee extension 5/5 RIGHT knee flexion 5/5 :: LEFT knee flexion 5/5 RIGHT ankle dorsiflexion 5/5 :: LEFT ankle dorsiflexion 5/5 RIGHT ankle plantarflexion 5/5 :: LEFT ankle plantarflexion 5/5 RIGHT great toe dorsiflexion 5/5 :: LEFT great toe dorsiflexion 5/5 RIGHT great toe plantarflexion 5/5 :: LEFT great toe plantarflexion 5/5 RIGHT shoulder elevation 5/5 :: LEFT shoulder elevation 5/5 RIGHT elbow flexion 5/5 :: LEFT elbow flexion 5/5 RIGHT elbow extension 5/5 :: LEFT elbow extension 5/5 RIGHT wrist flexion 5/5:: LEFT wrist flexion 5/5 RIGHT wrist extension 5/5 :: LEFT wrist extension 5/5 RIGHT hand lard refiner 5/5 :: LEFT hand lard refiner 5/5 STRAIGHT LEG RAISE:: LLE is negative at 120 degrees. RLE is negative at 120 degrees. JUSTINA'S TEST:: positive for pain along the left and right sacroiliac joints PELVIC COMPRESSION:: positive for pain in the left and right sacroiliac joints / low lumbar area. NEUROLOGIC DEEP TENDON REFLEXES:: RIGHT pateller 2/4 :: LEFT pateller 2/4 RIGHT achilles 2/4 :: LEFT achilles 2/4 RIGHT biceps 2/4 :: LEFT biceps 2/4 RIGHT brachioradialis 2/4 :: LEFT brachioradialis 2/4 RIGHT triceps 2/4 :: LEFT triceps 2/4 SENSATION:: hypesthesia is not noted in lower extremity dermatomes. SIGNS OF NEUROVASCULAR COMPRESSION Neumann Sign:: negative left and right digits Romberg Test:: negative Clonus: none found bilateral with passive ROM at ankle joint Spasticity:: none Atrophy:: not present in UE or LE musculature Fasciculation:: not present in UE or LE musculature PSYCHIATRIC:: ORIENTATION:: awake and alert. INSIGHT:: good awareness of illness. AFFECT:: pleasant. Radiology Images Viewed By Me:: 06/24/2018 CT of the abdomen shows progressive L1 compression deformity with minimal retropulsion Platelet count around 100,000 over the past few days I have reviewed and agree with information documented in the scribed documentation, ROS, patient medications, allergies, medical history, surgical history, social history, and family history. Results - Labs 06/29/18 01:58 06/29/18 01:58 Abnormal lab results RBC 2.83 M/mcL (4.19-5.50) L 06/29/18 01:58 Hgb 8.3 g/dL (12.9-16.9) L 06/29/18 01:58 Hct 27.0 % (37.5-50.1) L 06/29/18 01:58 MCHC 30.7 g/dL (31.6-35.5) L 06/29/18 01:58 RDW 15.0 % (11.5-14.5) H 06/29/18 01:58 Plt Count 111 K/mcL (140-400) L 06/29/18 01:58 MPV 12.6 fL (9.4-12.4) H 06/29/18 01:58 PT 17.9 Seconds (9.4-12.1) H 06/29/18 01:58 Heparin Anti-Xa, Unfract 0.20 IU/mL (0.30-0.70) L 06/28/18 12:56 ABG pO2 53 mmHg (85-104) L 06/29/18 11:18 ABG Total CO2 29 mEq/L (20-26) H 06/29/18 11:18 ABG O2 Saturation 87 % (95-98) L 06/29/18 11:18 Chloride 108 mEq/L (98-107) H 06/26/18 04:12 BUN 37 mg/dL (8-23) H 06/29/18 01:58 1.46 mg/dL (0.70-1.30) H 06/29/18 01:58 Est GFR ( Amer) 57 (> 60) L 06/29/18 01:58 Est GFR (Non-Af Amer) 47 (> 60) L 06/29/18 01:58 Glucose 128 mg/dL (70-105) H 06/28/18 05:33 POC Glucose 160 mg/dL (70-99) H 06/28/18 19:24 303 (280-300) H 06/25/18 01:45 Calcium 8.3 mg/dL (8.6-10.3) L 06/26/18 04:12 Venous Ioniz Calcium 1.04 mmol/L (1.15-1.35) L 06/24/18 01:00 Iron 22 mcg/dL (65-175) L 06/25/18 13:34 % Saturation 10 % (20-55) L 06/25/18 13:34 160 mg/dL (203-362) L 06/25/18 13:34 452 ng/mL (20-250) H 06/25/18 13:34 5.8 g/dL (6.4-8.9) L 06/25/18 01:45 3.1 g/dL (3.5-5.7) L 06/25/18 01:45 18.3 ng/mL (3.0-16.0) H 06/25/18 13:34 Staphylococcus sp PCR DETECTED (Not Detect) A 06/28/18 11:14 Staph aureus (PCR) DETECTED (Not Detect) A 06/28/18 11:14 Crossmatch See Detail 06/24/18 01:53 Diabetes panel 06/29/18 Range/Units 01:58 Sodium 139 (136-145) mEq/L Potassium 4.2 (3.5-5.1) mEq/L Chloride 104 (98-107) mEq/L Carbon Dioxide 25 (23-29) mEq/L BUN 37 H (8-23) mg/dL Creatinine 1.46 H (0.70-1.30) mg/dL Glucose 90 (70-105) mg/dL Calcium 8.6 (8.6-10.3) mg/dL Calcium panel 06/29/18 Range/Units 01:58 Calcium 8.6 (8.6-10.3) mg/dL Pituitary panel 06/29/18 Range/Units 01:58 Sodium 139 (136-145) mEq/L Potassium 4.2 (3.5-5.1) mEq/L Chloride 104 (98-107) mEq/L Carbon Dioxide 25 (23-29) mEq/L BUN 37 H (8-23) mg/dL Creatinine 1.46 H (0.70-1.30) mg/dL Glucose 90 (70-105) mg/dL Calcium 8.6 (8.6-10.3) mg/dL Adrenal panel 06/29/18 Range/Units 01:58 Sodium 139 (136-145) mEq/L Potassium 4.2 (3.5-5.1) mEq/L Chloride 104 (98-107) mEq/L Carbon Dioxide 25 (23-29) mEq/L BUN 37 H (8-23) mg/dL Creatinine 1.46 H (0.70-1.30) mg/dL Glucose 90 (70-105) mg/dL Calcium 8.6 (8.6-10.3) mg/dL All other labs normal. Consult Discharge Plan - Plan Referrals: NONE,PCP [Primary Care Provider] -
--- NOTE | 2018-06-29 14:30 | Infectious Disease Consult ---
Infectious Disease-Consult - Encounter Date/Time Date of Encounter: 06/29/18 Time of Encounter: 14:19 - Data of Consult Patient: new to practice Reason for consult: MSSA bacteremia Consult date: 06/29/18 Requesting Physician: Mimi Gan MD Primary Care Provider: PCP NONE - HPI HPI: Patient is a 72-year-old gentleman who presented to [facility] on 06/23/2018 with shortness of breath and chest pain. We are consult 06/29/2018 for MSSA bacteremia. Patient is a 72-year-old gentleman who has extensive past medical history including COPD, coronary disease, CHF, hypertension, hyperlipidemia and renal cell carcinoma with right kidney diagnosed 05/04/2018 with extensive metastatic disease involving bilateral kidneys, and glands, liver, lung. Patient was evaluated by hematology/oncology and received 1 cycle of pembrolizumab immunotherapy on 06/04/2018. Per Records, Patient has been getting progressive ly worsening shortness of breath and cough and chest pain. Patient was admitted for evaluation. On admission, patient has been spiking persistent fever as high as 102.7 Fahrenheit, tachycardia and episodes of hypotension. Patient has not had leukocytosis but has been having acute kidney injury BUN 58 creatinine peaked at 2.52. Chest x-ray revealed stable bilateral pulmonary nodules with no definite focal consolidation. CT abdomen pelvis revealed no acute findings and evaluation for metastatic disease is limited without intravenous contrast but hepatic prostatic disease likely has increased. CT chest on 06/24/2018 revealed interval increase in pulmonary nodule consistent with metastatic disease, multiple ill-defined hepatic lesion consistent with metastatic disease, bilateral adrenal mass appears stable and increased compression fracture L1. A brain MRI revealed no acute intracranial abnormalities. During the hospital stay a urinalysis obtained 06/26/2018 which was negative. A nd blood cultures obtained on 06/28/2018 revealed gram-positive cocci 2/2 sets. PCR revealed MSSA bacteremia. Patient was started initially on vancomycin and later switched to cefazolin 2 g IV every 8 hours. We were asked to evaluate the patient's make further recommendations. Clinically patient appears very ill and toxic. Patient is moaning. He does open eyes spontaneously but really does not answer questions. and children at bedside. While I was there on the hospitalist service was there to and we had the discussion of palliative and hospice care. - ROS Review of Systems: Unable to get review of systems due to to the patient mentation - Results CBC & Chem 7: 06/29/18 01:58 06/29/18 01:58 - Exam Vitals: Temp Pulse Resp BP Pulse Ox 101.1 F H 106 20 106/57 95 06/29/18 11:28 06/29/18 11:28 06/29/18 11:28 06/29/18 11:28 06/29/18 11:28 Exam: General: appears toxically ill. cachetic with muscle wasting HEAD: Normocephalic atraumatic EYES: PERRLA, EOMI, no conjunctival hemorrhage, sclera anicteric ENT: Mucous membranes dry NECK: Supple. No meningeal signs. No masses LUNGS: Chest expanding symmetrically. Lungs sounds audible both lung turpin. No wheezing, no rhonchi CV: irregular, S1S2, tachycardic no murmur. limited exam ABDOMEN: Soft, tender, nondistended, bowel sounds hypoactive BACK: Unable to assess EXTREMITY: Adequate perfusion. No joint effusion. SKIN: Normal color. Multiple skin tears noted. no endocarditis stigmata NEURO: Wakes up to verbal stimuli. Opens eyes spontaneously. Non-CSN no. PSYCH: Calm and appropriate. No agitation. Cetirizine HCl [Zyrtec] 10 mg PO DAILY 04/03/17 [History] Enalapril Maleate [Vasotec] 20 mg PO DAILY 04/03/17 [History] Simvastatin [Zocor] 40 mg PO HS 04/03/17 [History] Carvedilol [Coreg] 3.125 mg PO BIDWM #60 tablet 04/07/17 [Rx] Fenofibrate Nanocrystallized [Fenofibrate] 160 mg PO DAILY 05/03/18 [History] Guaifenesin [Mucinex] 400 mg PO DAILY 06/04/18 [History] HYDROcodone/Acet 5/325 mg [[place] 5-325 mg] 1 tab PO Q8H PRN 06/04/18 [History] Levalbuterol HCl [Xopenex] 1.25 mg IH Q6HR PRN #10 vial.neb 06/04/18 [Rx] Ondansetron ODT [Zofran ODT] 4 mg SL Q6HR #20 tab.rapdis 06/04/18 [Rx] hydroCHLOROthiazide [Hydrochlorothiazide] 25 mg PO DAILY 06/04/18 [History] Axitinib [Inlyta] 5 mg PO BID #60 tablet 06/08/18 [Rx] HydrOXYzine 10 mg PO TID PRN #30 tablet 06/16/18 [Rx] Allergy/AdvReac Type Severity Reaction Status Date / Time codeine Allergy See Verified 06/04/18 09:37 Comments - Assessment and Plan (1) Severe sepsis Current Visit: Yes Status: Acute had 2 SIRS criteria and SHIVAM on admission nnamdi secondary to MSSA bacteremia SNOMED Code(s): 78054210 (2) MSSA bacteremia Current Visit: Yes Status: Acute 2/2 sets on 06/28/18 positive source not clear considered complicated since patient has a pacemaker no endocarditis stigmata on PE agree with ancef duration of treatment 6 weeks will dose adjust based on CrCl will need RO prior to d/c monitor labs closely and for drug toxicity prognosis poor Addendum: I met with the family in the presence of the palliative care team, after long discussion with the family and trying to answer all the questions and addressed her concerns, it seems like the family is leaning towards hospice and no antibiotics. If that is the case, we will sign off the case and stop all antibiotics. Prognosis poor. 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 S/P cycle #1 pembrolizumab immunotherapy 06/04 mets to liver, adrenals, other kidney and lungs MRI brain negative prognosis ? Qualifiers: Qualified Code(s): C64.9 - Malignant neoplasm of unspecified kidney, except renal pelvis SNOMED Code(s): 309745265, 240464618 (5) Diabetes mellitus Current Visit: No Status: Chronic Qualifiers: Diabetes mellitus type: type 2 Diabetes mellitus chcf insulin use: without chcf use Diabetes mellitus complication status: with kidney complications Diabetes mellitus complication detail: with chronic kidney disease Chronic kidney disease stage: stage 3 (moderate) Qualified Code(s): E11.22 - Type 2 diabetes mellitus with diabetic chronic kidney disease; N18.3 - Chronic kidney disease, stage 3 (moderate) SNOMED Code(s): 53130449 (6) CAD (coronary artery disease) Current Visit: No Status: Chronic Qualifiers: Coronary Disease-Associated Artery/Lesion type: ruby artery [place] vs. transplanted heart: ruby heart Associated angina: without angina Qualified Code(s): I25.10 - Atherosclerotic heart disease of ruby coronary artery without angina pectoris SNOMED Code(s): 36792042 (7) S/P CABG (coronary artery bypass graft) Current Visit: No Status: Chronic SNOMED Code(s): 313471706, 381428267, 667087297 (8) Compression fracture of L1 lumbar vertebra Current Visit: Yes Status: Acute Qualifiers: Encounter type: initial encounter Qualified Code(s): S32.010A - Wedge compression fracture of first lumbar vertebra, initial encounter for closed fracture SNOMED Code(s): 098086891 Past Med Surg Social Fam HX - Past Medical History Medical history: coronary artery disease, diabetes, hyperlipidemia, hypertension , other Additional medical history: CAROTID STENOSIS Psychiatric history: anxiety, depression - Past Surgical History Surgical History: angioplasty/stent, coronary bypass (CABG) - Social History Smoking Status: Former smoker Smokeless Tobacco Status: No Alcohol use: none Drug use: none - Family History Mother Living Status: Hx Family Cardiac Disorders: Yes Father Living Status: Hx Family Cardiac Disorders: No Consult Discharge Plan - Plan Referrals: NONE,PCP [Primary Care Provider] -
--- NOTE | 2018-06-29 15:00 | Discharge Summary ---
Orders not resulted at time of discharge: Pending orders 06/28/18 11:14 Culture,Blood [BC] Routine 06/28/18 14:14 Fecal Hemoccult [Occult Blood,Stool] [BF] Stat 06/29/18 07:51 EV echocardiogram Routine 06/30/18 04:00 BMP [Basic Metabolic Panel] AM 0400 Complete Blood Count w/o Diff [HEME] AM 0400 PT/INR [Prothrombin Time INR] [COAG] AM 0400 07/01/18 04:00 PT/INR [Prothrombin Time INR] [COAG] AM 0400 07/02/18 04:00 PT/INR [Prothrombin Time INR] [COAG] AM 0400 07/03/18 04:00 PT/INR [Prothrombin Time INR] [COAG] AM 0400 Date of Encounter: 06/29/18 Time of Encounter: 14:57 - Discharge Diagnosis (1) Staphylococcus aureus bacteremia with sepsis Priority: Primary Status: Acute (2) Diabetes mellitus Priority: Secondary Status: Chronic Qualifiers: Diabetes mellitus type: type 2 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 insulin use: without termite control service representative use Diabetes mellitus complication status: with kidney complications Diabetes mellitus complication detail: with chronic kidney disease Chronic kidney disease stage: stage 3 (moderate) Qualified Code(s): E11.22 - Type 2 diabetes mellitus with diabetic chronic kidney disease; N18.3 - Chronic kidney disease, stage 3 (moderate) (3) Anemia Priority: Secondary Status: Chronic Qualifiers: Anemia type: due to chronic kidney disease Chronic kidney disease stage: stage 3 (moderate) Qualified Code(s): N18.3 - Chronic kidney disease, stage 3 (moderate); D63.1 - Anemia in chronic kidney disease (4) HTN (hypertension) Priority: Secondary Status: Chronic Qualifiers: Hypertension type: essential hypertension Qualified Code(s): I10 - Essential (primary) hypertension (5) HLD (hyperlipidemia) Priority: Secondary Status: Chronic Qualifiers: Hyperlipidemia type: mixed hyperlipidemia Qualified Code(s): E78.2 - Mixed hyperlipidemia (6) CAD (coronary artery disease) Priority: Secondary Status: Chronic Qualifiers: Coronary Disease-Associated Artery/Lesion type: [place] artery [place] vs. transplanted heart: [place] heart Associated angina: without angina Qualified Code(s): I25.10 - Atherosclerotic heart disease of [place] coronary artery without angina pectoris (7) DVT prophylaxis Priority: Secondary Status: Acute (8) Goals of care, counseling/discussion Priority: Secondary Status: Acute (9) Shortness of breath Priority: Secondary Status: Acute (10) History of DVT (deep vein thrombosis) Priority: Secondary Status: Chronic (11) Metastatic cancer Priority: Secondary Status: Acute (12) Suspected pulmonary embolism Priority: Secondary Status: Acute (13) Acute respiratory failure Priority: Secondary Status: Acute Qualifiers: Respiratory failure complication: hypoxia Qualified Code(s): J96.01 - Acute respiratory failure with hypoxia (14) Acute kidney injury superimposed on CKD Priority: Secondary Status: Acute (15) Carotid stenosis Priority: Secondary Status: Chronic Qualifiers: Laterality: bilateral Qualified Code(s): I65.23 - Occlusion and stenosis of bilateral carotid arteries (16) Declining functional status Priority: Secondary Status: Acute (17) Acute anemia Priority: Secondary Status: Acute (18) Thrombocytopenia Priority: Secondary Status: Acute (19) Iron deficiency anemia Priority: Secondary Status: Acute Qualifiers: Iron deficiency anemia type: unspecified iron deficiency Qualified Code(s): D50.9 - Iron deficiency anemia, unspecified (20) HFrEF (heart failure with reduced ejection fraction) Priority: Secondary Status: Acute Qualifiers: Heart failure chronicity: chronic Qualified Code(s): I50.22 - Chronic systolic (congestive) heart failure Hospital course: Mr. 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 acute hypoxic respiratory failure: secondary to increased pulmonary nodules. was started on heparin Drip at [place] which has been continued, unable to perform CTPA due to renal function so V/Q scan was performed and is indeterminate for PE. wells criteria is 4 ( moderate risk) and has bled score of 1. i discussed with learning and development specialist/oncologist motor vehicle salesperson ( Dr. rios) and he recommended to start bridging with coumadin and monitor in hospital while he is being bridged and for him to follow up as OP. Coumadin was started on 06/26. On 06/28 hemoglobin trended down 6.5, and was repeated to confirm and it trended up to 7.3, he was transfused 1 PRBC. radiology was contacted by the oncology team and V/Q scan was reevaluated and it was found that it was low probability and all AC was stopped on 06/28 as per heme/onc recommendations. staph aureus bacteremia: developed fever on 06/27- Blood cultures x 2 positive from 06/28. CT chest abdomen and pelvis was negative for any acute infection, UA is negative. TTE ordered to rule out vegetations, ID consulted sepsis secondary to above: blood cx positive x2, negative for MRSA was started on cefazolin, management as above. first detected Atrial fib: was found to be in Atrial fibrillation overnight most likely secondary to sepsis from staph aureus bacteremia, TTE, TSH pending continue with home BB and will treat the underlying source ( sepsis) - ChadsVAsc is 4, i discussed with patient and who understand that he is at increased risk for stroke but given his recent acute on chronic anemia requiring transfusion they would like to hold off of AC for now. has pacemaker which will need to be removed most likely. cardiology consulted. HFrEF 40%- was confirmed on TTE from 06/23 (EF similar to previous TTE from april)- has pacemaker in place. will follow CXR from today. continue with IVF as he is septic watch for fluid overload. continue with coreg, not on ARB - will consider if renal functions and sepsis has resolved. 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 oncology on board acute chronic anemia: H/H is about baseline of 8-9. Trended down to 6.5 and repeated to 7.3 s/p 1 PRBC on 06/28. transfuse if <8 as he has had cardiac history. hematology/oncology on board. FOBT pending iron deficiency: was transfused with venofer 300 mg as per hematology recs. compression fracture of L1: was seen by orthopedics in april 2018- was found that this is a nonoperative fracture and the treatment is very conservative. discussed with orthopedics who recommended Spine surgery to evaluate the patient- spine surgery was consulted will follow recommendations. ARF - retroperitoneal US/ CT A/p without evidence of hydronephrosis, UA and urine lytes are pending ( nursing staff aware), continue with gentle hydration as , continue with gentle hydration. baseline creatinine is about 1.5 , strict I/o , continue to monitor renal functions. resolved creatinine is 1.46 carotid artery stenosis: Bilateral proximal ICA has a moderate, 40-59% stenosis. (low end), MRI head without acute stroke, OP vascular surgery follow up puritis: skin is extremely dry, started on ointment to hydrate, continue with hydroxyzine, has improved CAD s/p CABG: continue with BB, statins, bilateral shoulder pain: most likely secondary to osteoarthritis ( shoulder xrays performed on 06/29 confirm osteoarthritis) - continue PT, pain control as below. poor nutrition: was started on mirtazipine by palliative, nutrition consulted will follow recs. uncontrolled pain: Palliative recommendations appreciated, continue with pain medications are palliative and colace and senna Functional decline: encouraged to continue with physical therapy and occupational therapy DVT prophylaxis: scds on 06/29- patient continued to deteriorate, palliative discussed CODE STATUS again with the patient and and CODE STATUS was changed to DNR comfort care arrest DNI. I discussed case with her echocardiography radiology technologist Dr. Ibarra and he informed me that we do not do explant surgeries at this facility and that we refer patients to [facility]. I again saw patient and at bedside and I discussed this information with and recommended the patient to be transferred to [facility] as he is full code and bacteremic. would like to take time and consult with family members. Family members arrived at bedside, i met with family ( brothers and at bedside. i discussed his hospital course and that he is not improving and currently fighting Staphylococcus aureus bacteremia with sepsis. decided to change code status to comfort care. she wishes to transfer him to hospice. i discussed this with palliative team. He was transferred to inpatient hospice. Medications as per palliative care. - Time Spent with Patient Total time spent providing and/or coordinating discharge services: Time spent: Greater than 30 minutes (50) - Discharge Medications Prescriptions: New Mirtazapine [Remeron] 7.5 mg PO HS tablet Docusate [Colace] 100 mg PO DAILY PRN capsule PRN Reason: Constipation Ondansetron [Zofran] 4 mg IVP Q8HR PRN vial PRN Reason: Nausea And Vomiting Calamine/Zinc oxide Lotion [Caladryl Lotion] 1 appl TP QID PRN bottle PRN Reason: Itching Lidocaine Patch [Lidoderm 5% patch] 1 each TP DAILY adh..patch Continued Carvedilol [Coreg] 3.125 mg PO BIDWM #60 tablet Fenofibrate Nanocrystallized [Fenofibrate] 160 mg PO DAILY Guaifenesin [Mucinex] 400 mg PO DAILY HYDROcodone/Acet 5/325 mg [[place] 5-325 mg] 1 tab PO Q8H PRN PRN Reason: Pain Levalbuterol HCl [Xopenex] 1.25 mg IH Q6HR PRN #10 vial.neb PRN Reason: Shortness Of Breath Axitinib [Inlyta] 5 mg PO BID #60 tablet HydrOXYzine 10 mg PO TID PRN #30 tablet PRN Reason: Itching Simvastatin [Zocor] 40 mg PO HS Cetirizine HCl [Zyrtec] 10 mg PO DAILY Discontinued Ondansetron ODT [Zofran ODT] 4 mg SL Q6HR #20 tab.rapdis hydroCHLOROthiazide [Hydrochlorothiazide] 25 mg PO DAILY Enalapril Maleate [Vasotec] 20 mg PO DAILY Home Medications: Cetirizine HCl [Zyrtec] 10 mg PO DAILY 04/03/17 [History] Simvastatin [Zocor] 40 mg PO HS 04/03/17 [History] Carvedilol [Coreg] 3.125 mg PO BIDWM #60 tablet 04/07/17 [Rx] Fenofibrate Nanocrystallized [Fenofibrate] 160 mg PO DAILY 05/03/18 [History] Guaifenesin [Mucinex] 400 mg PO DAILY 06/04/18 [History] HYDROcodone/Acet 5/325 mg [[place] 5-325 mg] 1 tab PO Q8H PRN 06/04/18 [History] Levalbuterol HCl [Xopenex] 1.25 mg IH Q6HR PRN #10 vial.neb 06/04/18 [Rx] Axitinib [Inlyta] 5 mg PO BID #60 tablet 06/08/18 [Rx] HydrOXYzine 10 mg PO TID PRN #30 tablet 06/16/18 [Rx] Calamine/Zinc oxide Lotion [Caladryl Lotion] 1 appl TP QID PRN bottle 06/29/18 [Rx] Docusate [Colace] 100 mg PO DAILY PRN capsule 06/29/18 [Rx] Lidocaine Patch [Lidoderm 5% patch] 1 each TP DAILY adh..patch 06/29/18 [Rx] Mirtazapine [Remeron] 7.5 mg PO HS tablet 06/29/18 [Rx] Ondansetron [Zofran] 4 mg IVP Q8HR PRN vial 06/29/18 [Rx] Allergies/Adverse Reactions: Allergy/AdvReac Type Severity Reaction Status Date / Time codeine Allergy See Verified 06/04/18 09:37 Comments Date of admission: 06/24/18 04:13 Primary care physician: PCP NONE Consults: 06/23/18 23:20 Consult to Occupational Therapy [CONS] Routine Comment: Evaluate, develop and implement POC Reason for Consult: weakness, metastatic ca Does patient have active BEDREST order?: No Is patient medically & hemodynamically stable?: Yes Patient assessed for mobility or mobilized this visit?: No Consult to Physical Therapy [CONS] Routine Comment: Evaluate, develop and implement POC Reason for Consult: weakness, metastatic ca Does patient have active BEDREST order?: No Is patient medically & hemodynamically stable?: Yes Patient assessed for mobility or mobilized this visit?: No 06/23/18 23:35 Consult to Oncology Hematology [CONS] Routine Consulting Provider: Aimee Siddiqui Reason for Consult: metastatic ca, known to you as an outpatient, supposed to have f/u appt sunday 06/25 Call Completed: No 06/27/18 11:43 Consult to Palliative Care [CONS] Routine Comment: Consulting Provider: Palliative Care [place] Reason for Consult: metastatic clear cell cacer with worsening mets. full code - discussed with at bedside who will be decision maker if he cannot make his own decisions. also has poorly controlled pain if you could help with that please Call Completed: No 06/27/18 11:50 Consult to Physician [CONS] Routine Consulting Provider: Sujit Jansen Reason for Consult: compression fracture of L1 that is progressing Call Completed: Yes 06/27/18 11:51 Consult to Physical Therapy [CONS] Routine Comment: Evaluate, develop and implement POC Reason for Consult: dispostion Does patient have active BEDREST order?: No Is patient medically & hemodynamically stable?: Yes Patient assessed for mobility or mobilized this visit?: Yes OT [Consult to Occupational Therapy] [CONS] Routine Comment: Evaluate, develop and implement POC Reason for Consult: disposition Does patient have active BEDREST order?: No Is patient medically & hemodynamically stable?: Yes Patient assessed for mobility or mobilized this visit?: Yes 06/27/18 11:52 Consult to Nutrition [CONS] Routine Comment: Consulting Provider: NUTRITION Reason for Dietary Consult: PO Supplementation 06/28/18 10:43 Consult to Invasive Line Access Team [CONS] Routine Reason for Consult: powerglide Line Type: EPIV 06/29/18 10:24 Consult to Infectious Diseases [CONS] Routine Consulting Provider: Infectious Disease [place] Reason for Consult: staph aureus bacteremia Call Completed: Yes - Constitutional Vitals: Temp Pulse Resp BP Pulse Ox 101.1 F H 106 20 106/57 95 06/29/18 11:28 06/29/18 11:28 06/29/18 11:28 06/29/18 11:28 06/29/18 11:28 Exam: Looks ill, pale, drowsy but responding to verbal stimuli Irregularly irregular, s1 and s2, could not appreciate murmurs, has device in the left chest decreased breathsounds bilaterally, occasional wheezing in the posterior lung turpin ( improved) Skin: extremely dry, erythematous skin all over the body-improved. - Patient Status Disposition: Hospice - Medical Facility Condition: Undetermined Functional capacity at discharge: bed bound Overall status at discharge: other - Discharge Instructions Follow Up With: NONE,PCP [Primary Care Provider] -
== END 2018-06-29 16:13 | disposition hospice, inpatient (51) | DRG 180 ==
LOC: 2ANU → SUATTDRO 06-24 04:13 → 2ANU 06-29 14:15
PROVIDERS: ADMIT Pediatrics; ATTEND Internal Medicine

== ENCOUNTER 2018-06-29 13:51 | Inpatient (IN) ==
[2018-06-29] MEDS ORDERED: Haloperidol Lactate 5 MG/ML VIAL IVP PRN (14:15)
[2018-06-29] MEDS ORDERED: Atropine Sulfate 1% 40 DROP/2 ML BOTTLE SL PRN (14:15)
[2018-06-29] MEDS ORDERED: *HR* LORazepam 2 MG/ML VIAL IVP PRN (14:15)
[2018-06-29] MEDS ORDERED: Bisacodyl 10 MG RECTAL SUPPOSITORY RC PRN (14:15)
[2018-06-29] MEDS ORDERED: OXYCODONE Oral CONC 10 MG/0.5 ML ORAL.SYG SL PRN (14:23)
[2018-06-29] MEDS ORDERED: Levalbuterol Neb 1.25 MG/3 ML IH PRN (14:25)
[2018-06-29] MEDS ORDERED: Acetaminophen 325 MG TABLET PO PRN (14:26)
[2018-06-29] MEDS ORDERED: Acetaminophen 650 MG RECTAL SUPP RC PRN (16:30)
[2018-06-29 16:34] VITALS: BP 91/56
--- NOTE | 2018-06-29 20:40 | Pain Management Consultation ---
Date of Encounter: 06/29/18 Time of Encounter: 20:34 Assessment and Plan (1) Compression fracture of L1 lumbar vertebra Current Visit: No Status: Chronic The patient experienced a fall 2 months ago that resulted in a lumbar spine compression fracture. The patient has recently been changed to comfort care. Recommend the followin. Oral analgesics per palliative care. 2. Back bracing with LSO brace only needed for comfort if out of bed. 3. Kyphoplasty not indicated due to disposition at this time. 4. I reiterated my full confidence in the palliative care team to deliver pain control through oral analgesia or patient-controlled analgesia. I am available for any issues that may come. The assessment and plan as outlined above was discussed with the patient and/or family members who expressed understanding and agreement. All questions were answered. Qualifiers: Encounter type: initial encounter Qualified Code(s): S32.010A - [place] compression fracture of first lumbar vertebra, initial encounter for closed fracture History of Present Illness Chief complaint: low back pain HPI: Mr. Dawson is a 72 year old male who fell 2 months ago, has known lumbar compression fracture. Pain has not stopped him from daily activity, driving. No pain in legs, no radiating pain. Pain located in center of lower back, worse with bending forward. Recently moved to comfort care. Past Med Surg Social Fam HX - Past Medical History Medical history: atrial fibrillation, cancer, coronary artery disease, diabetes, hyperlipidemia, hypertension, other Additional medical history: CAROTID STENOSIS Psychiatric history: anxiety, depression - Past Surgical History Surgical History: angioplasty/stent, coronary bypass (CABG), pacemaker/AICD - Social History Smoking Status: Former smoker Smokeless Tobacco Status: No Alcohol use: none Drug use: none - Family History Mother Living Status: Hx Family Cardiac Disorders: Yes Father Living Status: Hx Family Cardiac Disorders: No Medications and Allergies Cetirizine HCl [Zyrtec] 10 mg PO DAILY 04/03/17 [History] Simvastatin [Zocor] 40 mg PO HS 04/03/17 [History] Carvedilol [Coreg] 3.125 mg PO BIDWM #60 tablet 04/07/17 [Rx] Fenofibrate Nanocrystallized [Fenofibrate] 160 mg PO DAILY 05/03/18 [History] Guaifenesin [Mucinex] 400 mg PO DAILY 06/04/18 [History] HYDROcodone/Acet 5/325 mg [[place] 5-325 mg] 1 tab PO Q8H PRN 06/04/18 [History] Levalbuterol HCl [Xopenex] 1.25 mg IH Q6HR PRN #10 vial.neb 06/04/18 [Rx] Axitinib [Inlyta] 5 mg PO BID #60 tablet 06/08/18 [Rx] HydrOXYzine 10 mg PO TID PRN #30 tablet 06/16/18 [Rx] Calamine/Zinc oxide Lotion [Caladryl Lotion] 1 appl TP QID PRN bottle 06/29/18 [Rx] Docusate [Colace] 100 mg PO DAILY PRN capsule 06/29/18 [Rx] Lidocaine Patch [Lidoderm 5% patch] 1 each TP DAILY adh..patch 06/29/18 [Rx] Mirtazapine [Remeron] 7.5 mg PO HS tablet 06/29/18 [Rx] Ondansetron [Zofran] 4 mg IVP Q8HR PRN vial 06/29/18 [Rx] Allergy/AdvReac Type Severity Reaction Status Date / Time codeine Allergy See Verified 06/04/18 09:37 Comments Review of Systems - Constitutional Constitutional ROS IM: no photophobia, no phonophobia, no daytime sleepiness, no fever(s), no stops breathing during sleep - EENT Nose, mouth and throat: no headache(s), no neck pain, no neck trauma - Cardiovascular Cardiovascular ROS: no chest pain, no leg edema, no lightheadedness - Respiratory Respiratory: no pain on inspiration, no pain with cough - Gastrointestinal Gastrointestinal: no abdominal pain, no constipation, no diarrhea, no heartburn - Genitourinary Genitourinary ROS: no difficulty urinating, no flank pain, no urinary hesitancy - Musculoskeletal Musculoskeletal ROS: no muscle weakness, no numbness, no radiating pain into limb, no tingling - Integumentary Integumentary: no erythema, no lesions, no swelling - Neurological Neurological ROS: no abnormal gait, no behavioral changes, no focal weakness, no radicular pain - Psychiatric Psychiatric general: no anxiety, no confusion, no depression - Hematologic/Lymphatic Hematologic/Lymphatic pediatric: no easy bleeding, no easy bruising Physical Exam Initial Vital Signs Temp Pulse Resp BP Pulse Ox 98.3 F 96 19 91/56 95 06/29/18 16:33 06/29/18 16:33 06/29/18 16:33 06/29/18 16:33 06/29/18 16:33 - Additional Findings HEAD:: no lesions SKIN:: no areas of echymoses or petechiae CARDIOVASCULAR:: no lower limb edema PULMONARY:: Quiet, normal respiratory pattern. GASTROINTESTINAL:: not distended MUSCULOSKELETAL decreased muscle bulk both lower limbs NEUROLOGIC Atrophy:: not present in UE or LE musculature Fasciculation:: not present in UE or LE musculature PSYCHIATRIC:: decreased arousal Radiology Images Viewed By Me:: 06.24.18 CT shows compression fracture at L1 plt count around 100 I have reviewed and agree with information documented in the scribed documentation, ROS, patient medications, allergies, medical history, surgical history, social history, and family history. Results - Labs All other labs normal.
--- NOTE | 2018-06-30 12:50 | Pallative History & Physical ---
Date of Encounter: 06/30/18 Time of Encounter: 15:30 Internal Medicine - H&P: HPI History of present illness: genesis Dawson is a 72 year old male arrived to [facility] as a transfer from [place] on 06/24/2018, due to having chest pain with increased dyspnea requiring oxygen support. Upon arrival patient was suspected to have a PE, V/Q scan completed, showing negative. Patient's past medical history includes COPD, coronary artery disease, congestive heart failure, coronary mehul ry bypass graft, hypertension, hyperlipidemia, metastatic renal cancer with metastases to pulmonary hepatic and bilateral adrenal with retroperitoneal and celiac adenopathy. Patient's hepatic metastasis showing worsening. Upon admission patient was diagnosed and treated for acute on chronic kidney disease, dyspnea, diabetes, anemia, hypertension, hyperlipidemia, coronary artery disease with adjust shunt fraction 35-40%, acute respiratory failure, carotid stenosis. Dopplers completed were negative. Oncology consult performed with noted approval of initiating further palliative cancer treatment. Patient complaining of mild abdominal pain KUB performed showed mild small bowel distention with questionable mild ileus versus small bowel obstruction and cholelithiasis. MRI of head completed showing nothing acute. His hospital stay was complicated by increasing fevers, tachypnea, tachycardia, and he was found to have severe sepsis with 2/2 positive blood cultures. Patient had altered mental status as well. ID was consulted and was recommended for patient to transfer to [facility], informed he would require assisted IV atb, RO and possible replacement of pacemaker. consulted with rest of patient's family,, and they decided to forego aggressive treatment and transfer, and transition to comfort care. He was admitted to general inpatient hospice for symptom management of his pain and dyspnea, however, patient did pass away later that evening with family at bedside. Past Med Surg Social Fam HX - Past Medical History Medical history: atrial fibrillation, cancer, coronary artery disease, diabetes, hyperlipidemia, hypertension, other Additional medical history: CAROTID STENOSIS Psychiatric history: anxiety, depression - Past Surgical History Surgical History: angioplasty/stent, coronary bypass (CABG), pacemaker/AICD - Social History Smoking Status: Former smoker Smokeless Tobacco Status: No Alcohol use: none Drug use: none - Family History Mother Living Status: Hx Family Cardiac Disorders: Yes Father Living Status: Hx Family Cardiac Disorders: No Internal Medicine - H&P: Meds Cetirizine HCl [Zyrtec] 10 mg PO DAILY 04/03/17 [History] Simvastatin [Zocor] 40 mg PO HS 04/03/17 [History] Carvedilol [Coreg] 3.125 mg PO BIDWM #60 tablet 04/07/17 [Rx] Fenofibrate Nanocrystallized [Fenofibrate] 160 mg PO DAILY 05/03/18 [History] Guaifenesin [Mucinex] 400 mg PO DAILY 06/04/18 [History] HYDROcodone/Acet 5/325 mg [[place] 5-325 mg] 1 tab PO Q8H PRN 06/04/18 [History] Levalbuterol HCl [Xopenex] 1.25 mg IH Q6HR PRN #10 vial.neb 06/04/18 [Rx] Axitinib [Inlyta] 5 mg PO BID #60 tablet 06/08/18 [Rx] HydrOXYzine 10 mg PO TID PRN #30 tablet 06/16/18 [Rx] Calamine/Zinc oxide Lotion [Caladryl Lotion] 1 appl TP QID PRN bottle 06/29/18 [Rx] Docusate [Colace] 100 mg PO DAILY PRN capsule 06/29/18 [Rx] Lidocaine Patch [Lidoderm 5% patch] 1 each TP DAILY adh..patch 06/29/18 [Rx] Mirtazapine [Remeron] 7.5 mg PO HS tablet 06/29/18 [Rx] Ondansetron [Zofran] 4 mg IVP Q8HR PRN vial 06/29/18 [Rx] Allergy/AdvReac Type Severity Reaction Status Date / Time codeine Allergy See Verified 06/04/18 09:37 Comments ROS unobtainable: due to mental status Palliative Care-Exam - Constitutional Vitals: Temp Pulse Resp BP Pulse Ox 98.3 F 96 19 91/56 95 06/29/18 16:33 06/29/18 16:33 06/29/18 16:33 06/29/18 16:33 06/29/18 16:33 - Respiratory Respiratory exam: Present: decreased breath sounds, tachypnea - Cardiovascular Cardiovascular exam: Present: +S1, +S2 - GI/Abdominal Exam GI/Abdominal exam: Present: normal bowel sounds, soft - Catheter Type: Urethral ([place]) - Extremities Exam Extremities exam: Present: normal capillary refill, normal inspection - Neurological Exam Neurological exam: Present: altered - Skin Skin exam: Present: dry, pallor, warm Palliative Quality Palliative Quality: Screen for Code Status: Yes, Screen for Goals of Care: Yes, Screen for Pain: Yes, If Pain Regimen Started, Initiate Bowel Regimen: Yes, Screen for Nausea/Vomitting: Yes Code Status: 06/29/18 14:15 Resuscitation Status: Active [RES] Routine Comment: Resuscitation Status: DNR-Comfort Care
--- NOTE | 2018-06-30 12:58 | Death Note ---
Discharge Sum: Summary - Date and Time Date of admission: 06/29/18 16:14 Date of : 06/29/18 Time of : 21:55 - Summary Details: Patient was admitted to general inpatient hospice for metastatic renal cell carcinoma and severe sepsis. His dyspnea and pain were management with oral medications. He peacefully with family at bedside a few hours after admission. - Additional Data Confirmation of as documented by pronouncing clinician: no pulse, no respirations, no heart sounds Family: at bedside Attending physician: Kati Isbell MD Was code activated?: No Autopsy requested?: No Hospice patient?: Yes Discharge Sum: Diag - PCOD Probable Cause of : Respiratory arrest Discharge Sum: Prov - Provider Primary care physician: PCP NONE Admitting clinician: Kati Isbell Consults: 06/29/18 14:15 Consult to Palliative Care [CONS] Routine Comment: Consulting Provider: Palliative Care [place] Reason for Consult: GIP Call Completed: No 06/29/18 18:03 Consult to Pastoral Services [CONS] Routine Comment:
== END 2018-06-29 21:55 | disposition expired | DRG 951 ==
LOC: 2ANU 16:14
PROVIDERS: ADMIT Internal Medicine Hospice and Palliative Medicine; ATTEND Internal Medicine Hospice and Palliative Medicine